=== PATIENT | female | born 1975 | race Caucasian/White ===

== ENCOUNTER → 2018-04-23 12:48 | Outpatient (CLI) | payer OTHER, SELFPAY ==
--- NOTE | 2018-04-23 12:48 | DT_ITS ---
This patient was seen during an EMR downtime April 16, 2018 - April 23, 2018. This patient may have a combination of paper and electronic documentation or all paper documentation. All documentation is viewable within the e-chart portion of [facility] for each patient visit.
[2018-05-01 15:53] LABS: HPV APTIMA, High Risk Negative (Negative)
== END ==
PROVIDERS: Visit Provider Nurse Practitioner Women's Health
DX: Z12.4 Encounter for screening for malignant neoplasm of cervix (principal)
CPT/HCPCS: 88175; G0145

== ENCOUNTER → 2019-06-13 | Outpatient (CLI) | payer OTHER, SELFPAY ==
[2019-04-24 08:46] VITALS: BMI 24.7
--- NOTE | 2019-06-13 08:03 | BI_ITS ---
MAMMOGRAPHY - BILATERAL SCREENING REASON FOR EXAM: Female, 43 years old. Routine annual screening examination. PERTINENT HISTORY: Non-contributory. TECHNIQUE: Digital bilateral breast claudine (3D mammographic acquisition) in the CC and MLO projections. 2-D mediolateral oblique (MLO) and craniocaudad (CC) views of both breasts were obtained. CAD: Full Field Digital Mammography with Computer Added Detection was performed. COMPARISON: Comparison is made with prior outside examination dated May 01, 2017. FINDINGS: Breast Composition: The breasts are heterogeneously dense, which may obscure small masses. There are no dominant masses or suspicious calcifications. No other significant abnormalities are identified. There has been no significant change since the prior study. BI/SCREEN MAMM (CAD) W/CLAUDINE BILAT IMPRESSION: Stable bilateral screening mammogram. Yearly follow-up mammogram recommended. (A) ASSESSMENT CATEGORY: BIRADS Category 1: Negative. A letter regarding these results will be sent to the patient by the facility within 30 days. Approximately 10% of breast cancers are not detected by mammography. A normal mammogram should not delay biopsy of a clinically suspicious abnormality. [id number] Electronically Signed: Gilbert Rosas, at 9:46 EDT , Service support ,
== END | disposition home or self-care (01) ==
LOC: OPBI 08:01
PROVIDERS: Referring Provider Nurse Practitioner Women's Health; Visit Provider Nurse Practitioner Women's Health
DX: Z12.31 Encounter for screening mammogram for malignant neoplasm of breast (principal)
CPT/HCPCS: 77063; 77067

== ENCOUNTER → 2020-08-11 | Outpatient (CLI) | payer OTHER, SELFPAY ==
[2020-08-11 13:26] VITALS: BMI 24.7
[2020-08-11 16:52] LABS: T4 Free Direct 1.19 ng/dL (0.76-1.46); Thyroid Stim Hormone (TSH) 1.54 uIU/mL (0.358-3.74)
== END | disposition home or self-care (01) ==
LOC: LAB 13:50
PROVIDERS: PCP Family Medicine; Referring Provider Nurse Practitioner Women's Health; Visit Provider Nurse Practitioner Women's Health
DX: E04.9 Nontoxic goiter, unspecified (principal); Z13.29 Encounter for screening for other suspected endocrine disorder
CPT/HCPCS: 36415; 84439; 84443

== ENCOUNTER → 2020-08-14 | Outpatient (CLI) | payer OTHER, SELFPAY ==
[2020-08-11 13:26] VITALS: BMI 24.7
--- NOTE | 2020-08-14 14:51 | US_ITS ---
STUDY: THYROID ULTRASOUND REASON FOR EXAM: Female, 44 years old. [facility] TECHNIQUE: Ultrasound evaluation of the thyroid was performed with real-time and static olivera-scale imaging. COMPARISON: None. FINDINGS: RIGHT LOBE: The right lobe of the thyroid gland measures 4.2 x 1.3 x 1.1 cm. There is a homogeneous echotexture. There are no demonstrated solid, cystic or complex lesions. LEFT LOBE: The left lobe of the thyroid gland measures 4.4 x 1.3 x 1.1 cm. There is a homogeneous echotexture. There are no demonstrated solid, cystic or complex lesions. ISTHMUS: The isthmus measures 1.2 mm. The regional lymph nodes are normal. US/Thyroid IMPRESSION: Normal ultrasound examination of the thyroid. Electronically Signed: Kayode Michaels MD ([facility]) at 12:19 EDT , Service support ,
--- NOTE | 2020-08-14 15:04 | BI_ITS ---
MAMMOGRAPHY - BILATERAL SCREENING REASON FOR EXAM: Female, 44 years old. Routine annual screening examination. PERTINENT HISTORY: Non-contributory. TECHNIQUE: Digital bilateral breast claudine (3D mammographic acquisition) in the CC and MLO projections. 2-D mediolateral oblique (MLO) and craniocaudad (CC) views of both breasts were obtained. CAD: Full Field Digital Mammography with Computer Added Detection was performed. COMPARISON: Comparison is made with prior study 06/13/2019. FINDINGS: Breast Composition: The breasts are heterogeneously dense, which may obscure small masses. There are no dominant masses or suspicious calcifications. No other significant abnormalities are identified. There has been no significant change since the prior study. BI/SCREEN MAMM (CAD) W/CLAUDINE BILAT IMPRESSION: Stable bilateral screening mammogram. Yearly follow-up mammogram recommended. (A) ASSESSMENT CATEGORY: BIRADS Category 1: Negative. A letter regarding these results will be sent to the patient by the facility within 30 days. Approximately 10% of breast cancers are not detected by mammography. A normal mammogram should not delay biopsy of a clinically suspicious abnormality. [id number] Electronically Signed: Gilbert Rosas, at 15:49 EDT , Service support ,
== END | disposition home or self-care (01) ==
PROVIDERS: PCP Family Medicine; Referring Provider Nurse Practitioner Women's Health; Visit Provider Nurse Practitioner Women's Health
DX: E04.9 Nontoxic goiter, unspecified (principal); Z12.31 Encounter for screening mammogram for malignant neoplasm of breast
CPT/HCPCS: 76536; 77063; 77067

== ENCOUNTER → 2021-09-13 15:54 | Outpatient (CLI) | payer OTHER, SELFPAY ==
--- NOTE | 2021-09-13 15:58 | BI_ITS ---
MAMMOGRAPHY - BILATERAL SCREENING REASON FOR EXAM: Female, 45 years old. Routine annual screening examination. PERTINENT HISTORY: Non-contributory. TECHNIQUE: Digital bilateral breast claudine (3D mammographic acquisition) in the CC and MLO projections. 2-D mediolateral oblique (MLO) and craniocaudad (CC) views of both breasts were obtained. CAD: Full Field Digital Mammography with Computer Added Detection was performed. COMPARISON: Comparison is made with prior examination 08/14/2020 and 06/13/2019. FINDINGS: Breast Composition: The breasts are heterogeneously dense, which may obscure small masses. There are no dominant masses or suspicious calcifications. No other significant abnormalities are identified. There has been no significant change since the prior study. BI/SCRN MAMM (CAD)W/CLAUDINE BILAT IMPRESSION: Stable bilateral screening mammogram. Yearly follow-up mammogram recommended. (A) ASSESSMENT CATEGORY: BIRADS Category 1: Negative. A letter regarding these results will be sent to the patient by the facility within 30 days. Approximately 10% of breast cancers are not detected by mammography. A normal mammogram should not delay biopsy of a clinically suspicious abnormality. [id number] Electronically Signed: Gilbert Rosas MD at 8:26 EDT , Service support ,
== END ==
PROVIDERS: PCP Family Medicine; Visit Provider Obstetrics & Gynecology
DX: Z12.31 Encounter for screening mammogram for malignant neoplasm of breast (principal)
CPT/HCPCS: 77063; 77067

== ENCOUNTER → 2022-09-15 | Outpatient (CLI) | payer OTHER, SELFPAY ==
--- NOTE | 2022-09-15 16:38 | BI_ITS ---
MAMMOGRAPHY - BILATERAL SCREENING REASON FOR EXAM: Female, 46 years old. Routine annual screening examination. PERTINENT HISTORY: Non-contributory. TECHNIQUE: Digital bilateral breast claudine (3D mammographic acquisition) in the CC and MLO projections. 2-D mediolateral oblique (MLO) and craniocaudad (CC) views of both breasts were obtained. CAD: Full Field Digital Mammography with Computer Added Detection was performed. COMPARISON: Comparison is made with prior study dated 09/13/2021 and 08/14/2020. FINDINGS: Breast Composition: The breasts are heterogeneously dense, which may obscure small masses. There are no dominant masses or suspicious calcifications. No other significant abnormalities are identified. There has been no significant change since the prior study. BI/SCRN MAMM (CAD)W/CLAUDINE BILAT IMPRESSION: Stable bilateral screening mammogram. Yearly follow-up mammogram recommended. (A) ASSESSMENT CATEGORY: BIRADS Category 1: Negative. A letter regarding these results will be sent to the patient by the facility within 30 days. Approximately 10% of breast cancers are not detected by mammography. A normal mammogram should not delay biopsy of a clinically suspicious abnormality. [id number] Electronically Signed: Gilbert Rosas MD at 8:54 EDT ,
== END | disposition home or self-care (01) ==
LOC: OPBI 09-16 07:09
PROVIDERS: PCP Family Medicine; Referring Provider Nurse Practitioner Women's Health; Visit Provider Nurse Practitioner Women's Health
DX: Z12.31 Encounter for screening mammogram for malignant neoplasm of breast (principal)
CPT/HCPCS: 77063; 77067

== ENCOUNTER → 2023-03-06 | Outpatient (CLI) | payer BC, SELFPAY ==
[2023-03-12 11:07] LABS: HPV APTIMA, High Risk Negative (Negative)
== END | disposition home or self-care (01) ==
LOC: LABSPEC 12:45
PROVIDERS: PCP Family Medicine; Referring Provider Nurse Practitioner Women's Health; Visit Provider Nurse Practitioner Women's Health
DX: Z12.4 Encounter for screening for malignant neoplasm of cervix (principal)
CPT/HCPCS: 87624; 88175; G0145

== ENCOUNTER → 2023-10-06 | Outpatient (CLI) | payer BC, SELFPAY ==
--- NOTE | 2023-10-06 10:25 | BI_ITS ---
MAMMOGRAPHY - BILATERAL SCREENING REASON FOR EXAM: Female, 47 years old. Routine annual screening examination. PERTINENT HISTORY: Non-contributory. TECHNIQUE: Digital bilateral breast claudine (3D mammographic acquisition) in the CC and MLO projections. 2-D mediolateral oblique (MLO) and craniocaudad (CC) views of both breasts were obtained. CAD: Full Field Digital Mammography with Computer Added Detection was performed. COMPARISON: Comparison is made with prior study dated September 15, 2022 and September 13, 2021. FINDINGS: Breast Composition: The breasts are heterogeneously dense, which may obscure small masses. There are no dominant masses or suspicious calcifications. No other significant abnormalities are identified. There has been no significant change since the prior study. BI/SCRN MAMM (CAD)W/CLAUDINE BILAT IMPRESSION: Stable bilateral screening mammogram. Yearly follow-up mammogram recommended. (A) ASSESSMENT CATEGORY: BIRADS Category 1: Negative. A letter regarding these results will be sent to the patient by the facility within 30 days. Approximately 10% of breast cancers are not detected by mammography. A normal mammogram should not delay biopsy of a clinically suspicious abnormality. [id number] Electronically Signed: Gilbert Rosas MD at 9:39 EST ,
== END | disposition home or self-care (01) ==
LOC: OPBI 10:23
PROVIDERS: PCP Family Medicine; Referring Provider Nurse Practitioner Women's Health; Visit Provider Nurse Practitioner Women's Health
DX: Z12.31 Encounter for screening mammogram for malignant neoplasm of breast (principal)
CPT/HCPCS: 77063; 77067

== ENCOUNTER → 2024-06-03 | Outpatient (CLI) | payer BC, SELFPAY ==
[2024-06-03 13:09] LABS: Estradiol < 11.0 pg/mL; Follicle Stimulating Hormone 21.6 mIU/mL
== END | disposition home or self-care (01) ==
LOC: LAB 12:28
PROVIDERS: PCP Family Medicine; Referring Provider Nurse Practitioner Women's Health; Visit Provider Nurse Practitioner Women's Health
DX: N95.1 Menopausal and female climacteric states (principal)
CPT/HCPCS: 36415; 82670; 83001

== ENCOUNTER → 2024-10-09 | Outpatient (CLI) | payer BC, SELFPAY ==
--- NOTE | 2024-10-09 12:25 | BI_ITS ---
MAMMOGRAPHY - BILATERAL SCREENING 3-D TOMOSYNTHESIS REASON FOR EXAM: Female, 48 years old. Screening for breast cancer PERTINENT HISTORY: No significant family history. TECHNIQUE: 2-D mammograms and 3-D Tomosynthesis of the breast (s) were performed. CAD was performed. COMPARISON: 09/13/2021 FINDINGS: The breast composition is composed of scattered fibroglandular density. Scattered benign calcifications are seen. No dense spiculated masses or suspicious microcalcifications are identified. No architectural distortion is identified. There is no skin thickening or retraction. There has been no significant change since the prior study. BI/SCRN MAMM (CAD)W/CLAUDINE BILAT IMPRESSION: No mammographic signs of malignancy. Routine yearly mammograms recommended. ASSESSMENT CATEGORY: BIRADS Category 1: Negative. A letter regarding these results will be sent to the patient by the facility within 30 days. FOLLOW UP RECOMMENDATION: Yearly follow up mammogram recommended. (A) Approximately 10% of breast cancers are not detected by mammography. A normal mammogram should not delay biopsy of a clinically suspicious abnormality. Electronically Signed: Frantz Reyes MD at 13:15 EST ,
== END | disposition home or self-care (01) ==
LOC: OPBI 12:25
PROVIDERS: PCP Family Medicine; Referring Provider Nurse Practitioner Women's Health; Visit Provider Nurse Practitioner Women's Health
DX: Z12.31 Encounter for screening mammogram for malignant neoplasm of breast (principal)
CPT/HCPCS: 77063; 77067

== ENCOUNTER → 2025-03-05 | Outpatient (CLI) | payer BC, SELFPAY ==
--- NOTE | 2025-03-05 13:16 | US_ITS ---
PROCEDURE: PELVIC W/ TRANSVAGINAL REASON FOR EXAM: PELVIC PAIN TECHNIQUE: Transabdominal and transvaginal pelvic ultrasound COMPARISON: None available. FINDINGS: Measurements: Uterus: 8.5 cm x 3.9 cm x 2.6 cm with a volume of 37.04 mL Endometrial Thickness: 3.5 mm. Hyperechoic. Right Ovary: 2.5 cm x 1.7 cm x 1.3 cm with a volume of 2.96 mL. Left Ovary: Not visualized. TRANSABDOMINAL: Uterus: Unremarkable. Nabothian cyst. Endometrium: 3.5 mm Right ovary: Normal size and echotexture. Left ovary: Not visualized. Other: No large pelvic mass identified. Transvaginal sonography was performed to better visualize the endometrium. TRANSVAGINAL: Uterus: Nabothian cyst. Endometrium: Normal echotexture. Right ovary: Normal size and echotexture. Left ovary: Not visualized. Other adnexal findings: None. Cul-de-sac: No free intraperitoneal fluid identified. Tenderness: No tenderness US/Pelvic w/ Transvaginal IMPRESSION: NORMAL TRANSABDOMINAL AND TRANSVAGINAL PELVIC ULTRASOUND. Reading Location: [place] [id number]
== END | disposition home or self-care (01) ==
LOC: OPUS 13:13 → US 13:15
PROVIDERS: PCP Family Medicine; Referring Provider Nurse Practitioner Women's Health; Visit Provider Nurse Practitioner Women's Health
DX: R10.2 Pelvic and perineal pain (principal)
CPT/HCPCS: 76830; 76856

== ENCOUNTER → 2025-11-04 | Outpatient (CLI) | payer BC, SELFPAY ==
--- NOTE | 2025-11-04 12:30 | BI_ITS ---
EXAM: SCRN MAMM (CAD)W/CLAUDINE BILAT DATE: 11/04/2025 CLINICAL HISTORY: F, Age 49 y/o , SCREENING FOR BREAST CANCER TECHNIQUE: Procedure Code: [id number] Modality: MG Procedure: SCRN MAMM (CAD)W/CLAUDINE BILAT COMPARISON: Prior exam(s) were compared FINDINGS: TISSUE DENSITY: The breasts are heterogeneously dense, which may obscure small masses. Bilateral Breast Mammographic Findings: No significant masses, calcifications or other abnormalities are identified. BI/SCRN MAMM (CAD)W/CLAUDINE BILAT IMPRESSION: No mammographic evidence of malignancy. OVERALL FINAL ASSESSMENT BI-RADS 1: NEGATIVE. RECOMMENDATION: Routine annual follow-up in 1 Year Additional Recommendation none A letter with findings and recommendations will be mailed to the patient. Reading Location: [id number]
--- OUTSIDE RECORDS SUMMARY | 2025-11-04 12:40 | XMS RPT_ITS | CCD ---
Author Organization [facility] Care Team Providers Care Forming Press Operator Name Role Phone Tali PHOTOGRAPHER APPRENTICE, Armida S Unavailable Sina Vanegas MD Primary Care Provider Dr. Sina Vanegas Primary Care Provider Dr. Sina Vanegas Referring Provider Tali PHOTOGRAPHER APPRENTICE, PHOTOGRAPHER APPRENTICE-C Armida Attending Provider Dr. Conchis Gallardo Attending Provider Sina Vanegas MD Primary Care Provider Sina Vanegas MD Primary Care Provider Sina Vanegas MD Primary Care Provider Haagen INSTRUMENT STERILIZER.Sudha ZHENG Unavailable Suppan INSTRUMENT STERILIZER.LINE MANAGER, Araceli A Unavailable SINA VANEGAS Primary Care Unavailable UNGPRASERT, PATOMPONG Attending Unavailabl SINA Rey Primary Care Unavailable UNGPRASERT, PATOMPONG Attending Unavailabl SINA Rey Primary Care Unavailable SINA VANEGAS Attending Unavailable SINA VANEGAS Primary Care Unavailable UNGPRASERT, PATOMPONG Referring Unavailabl SINA Rey Primary Care Unavailable SINA VANEGAS Referring Unavailable SINA VANEGAS Primary Care Unavailable UNGPRASERT, PATOMPONG Referring Unavailabl e Suppan INSTRUMENT STERILIZER.MARCE, Araceli A Unavailable Dr. Sina Vanegas MD Primary Care Provider Tali PHOTOGRAPHER APPRENTICE-CArmida Attending Provider Tali PHOTOGRAPHER APPRENTICE-CArmida Referring Provider Dr. Sina Vanegas MD Referring Provider Tali PHOTOGRAPHER APPRENTICE, Armida Attending Unavailable Sina Vanegas Referring Unavailable Sina Vanegas Primary Care Unavailable Tali PHOTOGRAPHER APPRENTICE, Armida Attending Unavailable Sina Vanegas Primary Care Unavailable Tali PHOTOGRAPHER APPRENTICE, Armida Referring Unavailable Tali PHOTOGRAPHER APPRENTICE, Armida Referring Unavailable Tali PHOTOGRAPHER APPRENTICE, Armida Attending Unavailable Sina Vanegas Primary Care Unavailable Medications Current Medications Medication Drug Class(es) Dates Sig (Normalized) Sig (Original) apremilast 20 mg oral tablet (1 source) Start: 07-02-2025 Apremilast (Otezla) 20 mg tablet Active mg PO July 02, 2025 12:00am 21 day ethinyl estradiol 0.591724 mg/hr / etonogestrel 0.005 mg/hr vaginal system (20 sources) Progestin, Estrogen Start: 12-09-2021 End: 05-08-2024 Etonogestrel-Ethin yl Estradiol (Nuvaring) 0.12-0.015 mg/24 hr ring Active 1 NMA VAGINAL every 4 weeks 3 4 May 08, 2024 1:34pm Continuous cycling Start: 03-21-2018 End: 11-24-2021 Etonogestrel-Ethinyl Estradi ol (Nuvaring) 0.12-0.015 mg/24 hr ring Discontinued 1 NMA VAGINAL .COMPLEX 3 4 November 24, 2021 12:44pm November 24, 2021 12:53pm 1 vag ring VAGINAL continuous cycling; leave in place for 4 weeks then replace Start: 02-12-2018 End: 03-07-2018 Etonogestrel-Ethinyl Estradi ol (Nuvaring) 0.12-0.015 mg/24 hr ring Discontinued 1 NMA VAGINAL ONCE 3 February 14, 2018 12:46pm March 06, 2018 12:00am March 07, 2018 12:06am Start: 09-27-2017 NUVARING 0.12- 0.015 MG/24HR RING 1 ring per vagina as directed ETONOGESTREL-ETHINYL ESTRADIOL [id number] Armida Cesar NP Start: 04-19-2017 End: 03-06-2023 Etonogestrel-Ethinyl Estradi ol (NUVARING) 0.12-0.015 mg/24 hr vaginal ring Insert vaginally for 3 weeks then replace 2 Each 9 04/19/2017 Active Comment on above: Insert vaginally for 3 weeks then replace omeprazole 20 mg delayed release oral capsule (20 sources) Proton Pump Inhibitor Start: 11-24-2021 End: 04-10-2025 take 1 capsule by mouth once daily omeprazole (PRILOSEC) 20 mg capsule Take 1 capsule by mouth once daily. 90 capsule 3 04/11/2025 Active Comment on above: Take 1 capsule by [facility] once daily. TAKE 1 CAPSULE ONCE DAILY sertraline 100 mg oral tablet (20 sources) Serotonin Reuptake Inhibitor Start: 02-12-2024 End: 04-10-2025 take 1 tablet by mouth once daily sertraline (ZOLOFT) 100 mg tablet Indications: ERICKSON (generalized anxiety disorder) Take 1 tablet by mouth once daily. 90 tablet 3 04/11/2025 Active Start: 03-06-2023 take 2 tablets by [facility] once daily Sertraline (Zoloft) 50 mg tablet Active 100 mg PO DAILY March 06, 2023 9:41am Start: 04-19-2022 End: 02-10-2024 take 1 tablet by mouth once daily sertraline (ZOLOFT) 100 mg tablet Indications: ERICKSON (generalized anxiety disorder) Take 1 tablet by mouth once daily. 90 tablet 1 02/05/2024 02/10/2024 Discontinued Start: 11-24-2021 End: 03-14-2023 take 1 tablet by mouth once daily Sertraline (Zoloft) 50 mg tablet Discontinued 50 mg PO DAILY November 24, 2021 1:00am March 06, 2023 9:41am Start: 03-09-2018 End: 04-24-2019 Sertraline 20 mg/mL concentr ate Discontinued PO 180 72 0 March 09, 2018 12:00am April 24, 2019 8:47am Start: 03-09-2018 End: 04-24-2019 sertraline 20 mg/mL oral con centrate Discontinued PO 180 72 March 08, 2018 11:00pm April 24, 2019 7:47am Comment on above: Take 1 tablet by [facility] once daily. Completed/Discontinued Medications Medication Drug Class(es) Dates Sig (Normalized) Sig (Original) amoxicillin 500 mg oral capsule (1 source) Penicillin-class Antibacterial Start: 12-28-2023 End: 01-07-2024 take 1 capsule by mouth twice daily Amoxicillin 500 mg capsule Discontinued 500 mg PO TWICE A DAY 20 10 0 December 28, 2023 1:00am January 06, 2024 1:00am January 07, 2024 1:04am amoxicillin 875 mg / clavulanate 125 mg oral tablet (5 sources) Penicillin-class Antibacterial Start: 03-09-2018 End: 03-19-2018 Amoxicillin-Pot Clavulanate (Augmentin) 875-125 mg tablet Discontinued 1 {tbl} PO Q12H 20 10 0 March 09, 2018 12:00am March 18, 2018 12:00am March 19, 2018 12:07am Acute sinusitis, unspecified azithromycin 250 mg oral tablet (5 sources) Macrolide Antimicrobial Start: 09-28-2019 End: 08-11-2020 take 2-5 tablets by mouth once daily Azithromycin (Zithromax Z-Arnold) 250 mg tablet Discontinued 0 PO .COMPLEX 6 0 September 28, 2019 1:00am August 11, 2020 1:18pm take 500 mg today (day 1), then 250 mg for 4 days (days 2-5) PO 24 hr buPROPion hydrochloride 150 mg extended release oral tablet (2 sources) Aminoketone Start: 01-31-2022 End: 03-14-2022 take 1 tablet by mouth once daily buPROPion XL (WELLBUTRIN XL) 150 mg 24 hr tablet Indications: Anxiety with depression Take 1 tablet by mouth once daily. 30 tablet 5 01/31/2022 03/14/2022 Discontinued Comment on above: Take 1 tablet by [facility] once daily. Etonogestrel-Ethiny l Estradiol (Nuvaring) 0.12-0.015 mg/24 hr ring (2 sources) Start: 01-11-2023 End: 01-11-2023 Etonogestrel-Ethin yl Estradiol (Nuvaring) 0.12-0.015 mg/24 hr ring Discontinued 1 NMA VAGINAL every 4 weeks 3 1 January 11, 2023 2:04pm January 11, 2023 2:05pm Start: 01-11-2023 End: 01-11-2023 Etonogestrel-Ethinyl Estradi ol (Nuvaring) 0.12-0.015 mg/24 hr ring Discontinued 1 VAG RING VAGINAL every 4 weeks 3 January 11, 2023 1:04pm January 11, 2023 1:05pm Hydroxychloroquine (18 sources) Antimalarial, Antirheumatic Agent Start: 05-08-2024 End: 07-02-2025 take 1 tablet by mouth twice daily Hydroxychloroquine 100 mg tablet Discontinued 100 mg PO TWICE A DAY May 08, 2024 12:00am July 02, 2025 2:41pm Start: 06-05-2023 End: 09-11-2025 take 1 tablet by mouth once daily hydrOXYchloroQUINE (PLAQUENIL) 200 mg tablet Indications: Seronegative rheumatoid arthritis (HCC) Take 1 tablet by mouth once daily. 90 tablet 3 09/11/2024 09/11/2025 Active Comment on above: Take 1 tablet by dwayne th once daily. hydrOXYzine pamoate 25 mg oral capsule (2 sources) Antihistamine Start: 11-01-20 End: 03-14-20 take 1 capsule by mouth every twelve hours as needed hydrOXYzine pamoate (VISTARIL) 25 mg capsule Take 1 capsule by mouth twice daily as needed for anxiety. 30 capsule 0 11/01/2021 03/14/2022 Discontinued Comment on above: Take 1 capsule by mo [facility] twice daily as needed for anxiety. meloxicam 15 mg oral tablet (6 sources) Nonsteroidal Anti-inflammatory Drug Start: 05-23-20 End: 09-06-20 take 1 tablet by mouth once daily at mealtime meloxicam (MOBIC) 15 mg tablet Indications: Arthralgia, unspecified joint Take 1 tablet by mouth once daily. With food. 30 tablet 2 05/23/2023 09/06/2023 Discontinued Comment on above: Take 1 tablet by dwayne th once daily. With food. predniSONE 10 mg oral tablet (5 sources) Start: 09-28-20 End: 08-11-20 Prednisone 10 mg tablet Discontinued 10 mg PO .COMPLEX 30 0 September 28, 2019 1:00am August 11, 2020 1:19pm take 4 pills for 3 days, take 3 pills for 3 days, take 2 pills for 3 days, take 1 pill for 3 days; Problems Active Problems Problem Classification Problem Date Documented Date Episodic/Chronic Abdominal pain (3 sources) Pain in pelvis; Translations: [Pelvic and perineal pain] Onset: 07-02-2025 07-02-2025 Episodic Comment on above: [facility] 02/2025 Anxiety disorders (20 sources) Panic disorder; Translations: [Panic disorder [episodic paroxysmal anxiety]] Onset: 11-22-2017 Chronic Disorders of lipid metabolism (2 sources) Mixed hyperlipidemia; Translations: [Mixed hyperlipidemia] Onset: 04-29-2024 04-22-2024 Chronic Esophageal disorders (1 source) Gastroesophageal reflux disease without esophagitis; Translations: [Gastro-esophageal reflux disease without esophagitis] 05-23-2023 Chronic Immunity disorders (1 source) Immunodeficiency, unspecified; Translations: [Immunosuppression (HCC)] Onset: 03-07-2025 Chronic Malaise and fatigue (1 source) Fatigue; Translations: [Other fatigue] Episodic Mood disorders (20 sources) Depressive disorder; Translations: [Other specified depressive episodes] Onset: 02-18-2008 02-18-2008 Chronic Osteoarthritis (1 source) Arthritis; Translations: [Unspecified osteoarthritis, unspecified site] 05-26-2023 Chronic Other aftercare (3 sources) Drug therapy finding; Translations: [Other nursing home (current) drug therapy] 09-06-2023 Episodic Other circulatory disease (2 sources) Elevated blood-pressure reading, without diagnosis of hypertension; Translations: [Elevated blood pressure reading without diagnosis of hypertension] Episodic Other inflammatory condition of skin (1 source) Psoriatic arthritis; Translations: [Other psoriatic arthropathy] 09-11-2024 Chronic Other inflammatory condition of skin (1 source) Psoriasis vulgaris; Translations: [Psoriasis vulgaris] 09-11-2024 Chronic Other inflammatory condition of skin (1 source) Other psoriatic arthropathy; 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)] Onset: 03-07-2025 Chronic Other inflammatory condition of skin (1 source) Psoriasis vulgaris; Translations: [Psoriasis vulgaris] Onset: 03-07-2025 Chronic Other non-traumatic joint disorders (2 sources) Joint pain; Translations: [Pain in unspecified joint] 05-22-2023 Episodic Other non-traumatic joint disorders (2 sources) Multiple joint pain; Translations: [Pain in unspecified joint] 05-26-2023 Episodic Other nutritional; endocrine; and metabolic disorders (1 source) Weight gain; Translations: [Abnormal weight gain] Episodic Other screening for suspected conditions (not mental disorders or infectious disease) (18 sources) Patient encounter status; Translations: [Encounter for screening mammogram for malignant neoplasm of breast] Onset: 01-05-2024 Episodic Otitis media and related conditions (1 source) Finding of fluid behind tympanic membrane; Translations: [Unspecified nonsuppurative otitis media, left ear] Episodic Rheumatoid arthritis and related disease (19 sources) Seronegative rheumatoid arthritis; Translations: [Rheumatoid arthritis without rheumatoid factor, unspecified site] Onset: 11-27-2023 09-06-2023 Chronic Unclassified (1 source) No current problems or disability 09-27-2017 Past or Other Problems Problem Classification Problem Date Documented Da te Episodic/Chronic Acute bronchitis (9 sources) Acute bronchitis; Translations: [Acute bronchitis, unspecified] Onset: 11-27-2023 Resolved: 11-27-2023 11-27-2023 Episodic Mycoses (20 sources) Onychomycosis; Translations: [Tinea unguium] Onset: 03-05-2010 03-05-2010 Episodic Neoplasms of unspecified nature or uncertain behavior (20 sources) Neoplasm of uncertain behavior of skin; Translations: [Neoplasm of uncertain behavior of skin] Onset: 04-28-2011 Resolved: 11-27-2023 04-28-2011 Episodic Nonspecific chest pain (3 sources) Chest wall pain; Translations: [Other chest pain] Onset: 04-22-2024 04-22-2024 Episodic Other circulatory disease (16 sources) Elevated blood-pressure reading without diagnosis of hypertension; Translations: [Elevated blood-pressure reading, without diagnosis of hypertension] Onset: 11-27-2023 11-27-2023 Episodic Other non-traumatic joint disorders (20 sources) Swelling of knee joint; Translations: [Effusion, right knee] Onset: 03-05-2010 03-05-2010 Episodic Unclassified (3 sources) child 06-11-2022 Results Test Name Value Interpretation Reference Range Facility Exchange Specialist Office Visit Reporton 07-02-2025 Exchange Specialist Office Visit Report [facility] [address], [address] [place] [address] OFFICE VISIT Date of Service: 07/02/25 MR#: [id number] Acct: [id number] Name: ALONA RODRIGEZ #: [id number] : 1975 Provider: LARRY bowen Age/Sex: 49/F [place] [facility] [place]: Signed Intake Vital Signs 05/08/24 13:31 07/02/25 14:37 07/02/25 14:41 Height 5 ft 3 in 5 ft 3 in 5 ft 3 in Weight: 174 lb BMI 30.8 BP 114/80 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) Chief Complaint: Annual Ship Boss Required: No Is patient in pain?: No Allergies No Known Allergies Allergy (Verified 07/02/25 14:49) Medications ???Medication ???Instructions ???Recorded ???Confirmed ???Type omeprazole 20 mg capsule,delayed 20 mg PO DAILY 11/24/21 07/02/25 H istory release sertraline 50 mg tablet (Zoloft) 100 mg PO DAILY 03/06/23 07/02/25 History etonogestrel 0.12 mg-ethinyl 1 vag ring vaginal Q4W #3 ea 05/0807/02/25 Rx estradiol 0.015 mg/24 hr vaginal ring (NuvaRing) apremilast 20 mg tablet (Otezla) mg PO 07/02/25 07/02/25 History Is last menstrual period known: No Post menopausal: No Patient : No : No PFSH Medical History child Knee pain Shoulder pain Arthritis Surgical History H/O dilation and curettage Social History Smoking Status: Never smoker alcohol intake: current alcohol intake frequency: a few times a month substance use type: does not use caffeine: Yes what type of physical activity do you participate in: none seatbelt use: always do you feel safe at home: Yes additional social history: -[employer] 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 Date Name GA/Weeks Outcome Route Bth Weight Gen Labor Lgth Anesthesia Del [facility] Provider FOB Unknown Melany-2000 Unknown Mague-2001 HPI Encounter for routine gynecological examination Details: ALONA RODRIGEZ is a 49 year old who presents for annual exam. Had normal US in February due to lower right pelvic pain. Still happening off and on. No menses with nuvaring. Last PAP: 2022 History of abnormal PAP: no Last mammogram: 09/2024 History of abnormal mammogram: no Colon cancer screenin Other preventative health care screenings: Guil[place] Female Reproductive History Questions: metrorrhagia: No, sexually active: Yes, dyspareunia: No and PCB: No ROS Const Constitutional: Denies fatigue, weight gain or weight loss Cardio Card: Denies chest pain Resp Resp: Denies cough or dyspnea on exertion GI GI: Denies abdominal pain, bloating, change in stool character, constipation or vomiting : Reports as per HPI; Denies difficulty voiding, pelvic pain, urinary frequency, urinary incontinence, urinary urgency, vaginal discharge or vaginal pruritus Exam Const General: cooperative, healthy appearing, no acute distress and well developed Orientation: alert, oriented to person and oriented to place HENNJ Head: normal to inspection Neck Neck: normal visual inspection Thyroid: thyroid normal Lymphatic: no lymphadenopathy noted Chest Breast inspection: normal inspection of the breasts and normal inspection of the axillae Breast palpation: normal palpation of the breasts, normal palpation of the axillae and no axillary lymphadenopathy Resp Effort Inspection: normal respiratory effort GI Palpation: soft, no masses and nontender Rectal Exam: deferred External Female Exam: normal external appearance and normal appearance of the urethra Urethra: normal appearance of the urethra and normal palpation Speculum Exam - Vagina: normal appearance of the vagina and normal vaginal discharge Speculum Exam - Cervix: normal appearance of the cervix Bimanual Exam- Vagina Uterus: normal bimanual exam, uterine size normal, uterine shape normal and non-tender Bimanual Exam- Adnexa, other: normal adnexae, no masses, normal and non-tender Pelvic Support: normal Neuro General: patient alert and patient oriented x3 Psych Affect: normal affect Coding Level of Care Code Off vis,est,prev 40-64yrs Diagnoses Encounter for gynecological examination with abnormal finding Z01.411 Gynecological examination findings: abnormal findings PRESENT Pelvic pain R10.2 Assessment and Plan Assessment and Plan (1) Encounter for routine gynecological examination: Qualifiers: Gynecological examinati (more content not included)... [place] Pelvic w/ Transvaginalon Pelvic w/ Transvaginal [facility] Imaging Services [address] [place] [address] Pelvic w/ Transvaginal MR#: [id number] Acct: [id number] Name: ALONA RODRIGEZ Rep #: [id number] : 1975 F 49 From: Gilbert ford MD PCP: Dr. Sina Vanegas MD Status: REG CLI Study: Pelvic w/ Transvaginal Date of Exam: 03/05/25 Exam# [id number] Ordering Dr: Armida Cesar PHOTOGRAPHER APPRENTICE PHOTOGRAPHER APPRENTICE -C PROCEDURE: PELVIC W/ TRANSVAGINAL REASON FOR EXAM: PELVIC PAIN TECHNIQUE: Transabdominal and transvaginal pelvic ultrasound COMPARISON: None available. FINDINGS: Measurements: Uterus: 8.5 cm x 3.9 cm x 2.6 cm with a volume of 37.04 mL Endometrial Thickness: 3.5 mm. Hyperechoic. Right Ovary: 2.5 cm x 1.7 cm x 1.3 cm with a volume of 2.96 mL. Left Ovary: Not visualized. TRANSABDOMINAL: Uterus: Unremarkable. Nabothian cyst. Endometrium: 3.5 mm Right ovary: Normal size and echotexture. Left ovary: Not visualized. Other: No large pelvic mass identified. Transvaginal sonography was performed to better visualize the endometrium. TRANSVAGINAL: Uterus: Nabothian cyst. Endometrium: Normal echotexture. Right ovary: Normal size and echotexture. Left ovary: Not visualized. Other adnexal findings: None. Cul-de-sac: No free intraperitoneal fluid identified. Tenderness: No tenderness US/Pelvic w/ Transvaginal IMPRESSION: NORMAL TRANSABDOMINAL AND TRANSVAGINAL PELVIC ULTRASOUND. Reading Location: [place] [address] CC: PHOTOGRAPHER APPRENTICE-C Armida Cesar; Dr. Sina Vanegas MD Eligibility Technician: Signed [place] SCRN MAMM (CAD)W/CLAUDINE BILATo n 10-09-2024 SCRN MAMM (CAD)W/CLAUDINE BILAT [facility] Imaging Services [address] [place], [place] [address] SCRN MAMM (CAD)W/CLAUDINE BILAT MR#: [id number] Acct: [id number] Name: ALONA RODRIGEZ Rep #: [id number] : 1975 F 48 From: Reddy Reyes MD PCP: Dr. Sina Vanegas MD Status: REG [facility] Study: SCRN MAMM (CAD)W/CLAUDINE BILAT Date of Exam: 09/14 06/05 Exam# [id number] Ordering Dr: Armida Cesar NP PHOTOGRAPHER APPRENTICE -C [id number] MAMMOGRAPHY - BILATERAL SCREENING 3-D TOMOSYNTHESIS REASON FOR EXAM: Female, 48 years old. Screening for breast cancer PERTINENT HISTORY: No significant family history. TECHNIQUE: 2-D mammograms and 3-D Tomosynthesis of the breast (s) were performed. CAD was performed. COMPARISON: 09/13/2021 FINDINGS: The breast composition is composed of scattered fibroglandular density. Scattered benign calcifications are seen. No dense spiculated masses or suspicious microcalcifications are identified. No architectural distortion is identified. There is no skin thickening or retraction. There has been no significant change since the prior study. BI/SCRN MAMM (CAD)W/CLAUDINE BILAT IMPRESSION: No mammographic signs of malignancy. Routine yearly mammograms recommended. ASSESSMENT CATEGORY: BIRADS Category 1: Negative. A letter regarding these results will be sent to the patient by the facility within 30 days. FOLLOW UP RECOMMENDATION: Yearly follow up mammogram recommended. (A) Approximately 10% of breast cancers are not detected by mammography. A normal mammogram should not delay biopsy of a clinically suspicious abnormality. Electronically Signed: Frantz Reyes MD at 13:15 EST Reading Location ID and State: [facility] / [place] , Service support , CC: LARRY Cesar; Dr. Sina Vanegas MD Eligibility Technician: Signed [place] CNOVon 09-11-2024 CNOV Office Visit (RHEUMN ) -------- ALONA RODRIGEZ ([id number]) 1975 F Date Time Provider Department 09/11/24 2:00 PM MARIAJOSE REYNOSO RHEUMN During your visit today, we recorded the following information about you: Temperature Pulse Blood pressure Weight 97.4 degrees 85/minute 129/81 77.9 kg Height 1.6 m Mariajose Reynoso MD 09/11/2024 1:45 PM Signed Follow up zoom call March 07 at 4 PM Continue Plaquenil for now Send me an update after you see dermatology Mariajose Reynoso MD 09/11/2024 1:55 PM Signed MD Alona Cortes September 10, 2024 Referring Provider: PCP: Sina Vanegas MD Chief Complaint: Patient presents with: Joint Pain Background Rheumatologic History: Ms. Rodrigez reports that about 10 years ago she was diagnosed with inflammatory arthritis. She reported at the time, experiencing significant bilateral knee pain and swelling, as well as intermittent hip tightness. Labs were checked and at that time, CRP/ESR were elevated, but KISHAN and RF were negative. She was told that if her symptoms worsened, she could be seen by a dermatology physician, however her symptoms were generally manageable so she did not present. About two years ago, she developed progressively worsening joint disease. She endorses joint pain, swelling, tightness of her shoulders, elbows, wrists, fingers, knees, and toes. The worst joints are her toes and fingers. She states that her joint pain/stiffness migrates from one joint to another but her toes are basically always stiff. She endorses morning stiffness that lasts at least 30-60 minutes, improves with activity. She denies any redness or erythema to her joints. Sometimes the pain is so severe that is limits her ability to walk/complete ADLs. This was the case about two weeks ago, when she had severe joint stiffness and pain and could not walk. Her PCP prescribed a course of Meloxicam (that she began 4 days ago) and checked bloodwork. KISHAN positive, RF negative, ESR/CRP elevated. She reports that she has never taken prednisone for joint issues, has never tried plaquenil. Usually, her joint symptoms are managed with heat/ice or the occasional ibuprofen. She otherwise denies any rashes, photosensitivity, eye pain, eye redness, changes to vision, mouth ulcers, dysphagia, odoynphoagia, shortness of breath, pleuritic pain, chest pain, blood in stool, melena, weakness, hair loss, nail changes, Raynaud's phenomenon, hypermobility. She describes her energy levels as alright. Family hx: - cousin w/ lupus - otherwise none I first saw her 05/26/23 47 yo female present with polyarthralgia. Characteristics of her joint pain sounds inflammatory to me. Exam show swelling and tenderness in several joints especially in her hands. High suspicion for rheumatoid. We will obtain a comprehensive set of serologies and x-rays. F/U 06/05/23 CCP neg ABBY neg Responding quite well to meloxicam. Her pain and stiffness are minimal now. I think that seronegative rheumatoid arthritis is the most likely explanation for her arthritis based on the pattern of her arthritis. Elevated inflammatory markers and responsiveness to meloxicam are very suggestive of inflammatory arthritis. We will start her on hydroxychloroquine given its favorable safety profile. Side effects of HCQ, especially HCQ maculopathy, were discussed. The patient will need regular eye exam. I will recommend her to keep taking meloxicam every day for 1 month and then downgrade it to as needed. F/U 09/06/23 Doing better on Plaquenil. She is able to stop meloxicam July 14. Since then, she describes 2 minor flare in her knees. No pain or swelling today. Continue hydroxychloroquine monotherapy. F/U 03/08/24 I think she is in remission. Hydroxychloroquine monotherapy is working well. I will continue it. She will do eye exam soon. Interim History: Patient returns for follow up, last visit 09/06/2023. Few minor flare that resolved by itself since she last saw me. 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 They are treating her with topical medication. She is due to see them again in 2 months. They mentioned that they may want to start her on Otezla. Labs ok PAST MEDICAL HISTORY Diagnosis Date Abnormal Pap smear and cervical HPV (human papillomavirus) colp 05/2010 BRANDI 1 Arthritis Depression Hx of colonoscopy 01/05/[address] Givens PAST SURGICAL HISTORY Procedure Laterality Date DILATION AND CURETTAGE DXAND/THER NONOBSTETRIC EGD 02/01/2021 SKIN BIOPSY HX Social History Tobacco Use Smoking status: Never Smokeless tobacco: Never Substance Use Topics Alcohol use: Yes Comment: Occasionally Drug use: No Health Maintenance Covid-19 Vaccine( season) due on 07/14/2024 Mammogram Screening due on (more content not included)... Normal [facility] ALT SerPl-cCncon 09-04-2024 ALT [Catalytic activity/Vol] 10 U/L Normal 7-38 [facility] Comment on above: Order Comment: Speci men Type: BLOOD SPECIMEN Ordering Facility: [facility] Address: [address] [place] [address] Performed By: #### 1 920-8, 1742-6, CRET1, 3094-0 #### [facility] CLIA [id number] [address] [place] [address] [place] AST SerPl-cCncon 09-04-2024 AST [Catalytic activity/Vol] 12 U/L Low 13-35 [facility] Comment on above: Order Comment: Speci men Type: BLOOD SPECIMEN Ordering Facility: [facility] Address: [address] [place] [address] Performed By: #### 1 920-8, 1742-6, CRET1, 3094-0 #### [facility] CLIA [id number] [address] [place] [address] [place] BUN SerPl-mCncon 09-04-2024 Urea nitrogen [Mass/Vol] 12 mg/dL Normal 7-21 [facility] Comment on above: Order Comment: Speci men Type: BLOOD SPECIMEN Ordering Facility: [facility] Address: [address] [place] [address] Performed By: #### 1 920-8, 1742-6, CRET1, 3094-0 #### [facility] CLIA [id number] [address] [place] [address] [place] CBC W Auto Differential pane l (Bld)on 09-04-2024 Basophils (Bld) [#/Vol] 10*3/uL Normal <0.11 [facility] Comment on above: Order Comment: Speci men Type: BLOOD SPECIMEN Ordering Facility: [facility] Address: [address] [place] [address] Performed By: #### 5 7021-8 #### [facility] CLIA [id number] [address] [place] [address] [place] Basophils/100 WBC (Bld) 0.3 % Normal [facility] Comment on above: Order Comment: Speci men Type: BLOOD SPECIMEN Ordering Facility: [facility] Address: [address] [place] [address] Performed By: #### 5 7021-8 #### [facility] CLIA [id number] [address] [place] [address] [place] Differential cell count method Nom (Bld) Auto Normal [facility] Comment on above: Order Comment: Speci men Type: BLOOD SPECIMEN Ordering Facility: [facility] Address: [address] [place] [address] Performed By: #### 5 7021-8 #### [facility] CLIA [id number] [address] [place] [address] [place] Eosinophils (Bld) [#/Vol] 0.13 10*3/uL Normal <0.46 [facility] Comment on above: Order Comment: Speci men Type: BLOOD SPECIMEN Ordering Facility: [facility] Address: [address] [place], [place] [address] Performed By: #### 5 7021-8 #### [facility] CLIA [id number] [address] [place] [address] [place] Eosinophils/100 WBC (Bld) 2.1 % Normal [facility] Comment on above: Order Comment: Speci men Type: BLOOD SPECIMEN Ordering Facility: [facility] Address: [address] [place] [address] Performed By: #### 5 7021-8 #### [facility] CLIA [id number] [address] [place] [address] [place] Erythrocyte distribution width (RBC) [Ratio] 11.9 % Normal 11.5-15.0 [facility] Comment on above: Order Comment: Speci men Type: BLOOD SPECIMEN Ordering Facility: [facility] Address: [address] [place] [address] Performed By: #### 5 7021-8 #### [facility] CLIA [id number] [address] [place] [address] [place] Hematocrit (Bld) [Volume fraction] 38.0 % Normal 36.0-46.0 [facility] Comment on above: Order Comment: Speci men Type: BLOOD SPECIMEN Ordering Facility: [facility] Address: [address] [place] [address] Performed By: #### 5 7021-8 #### [facility] CLIA [id number] [address] [place] [address] [place] Hemoglobin (Bld) [Mass/Vol] 12.6 g/dL Normal 11.5-15.5 [facility] Comment on above: Order Comment: Speci men Type: BLOOD SPECIMEN Ordering Facility: [facility] Address: [address] [place] [address] Performed By: #### 5 7021-8 #### [facility] CLIA [id number] [address] [place] [address] [place] Immature granulocytes (Bld) [#/Vol] 10*3/uL Normal <0.10 [facility] Comment on above: Order Comment: Speci men Type: BLOOD SPECIMEN Ordering Facility: [facility] Address: [address] [place] [address] Performed By: #### 5 7021-8 #### [facility] CLIA [id number] [address] [place] [address] [place] Immature granulocytes/100 WBC (Bld) 0.3 % Normal [facility] Comment on above: Order Comment: Speci men Type: BLOOD SPECIMEN Ordering Facility: [facility] Address: [address] [place] [address] Performed By: #### 5 7021-8 #### [facility] CLIA [id number] [address] [place] [address] [place] Lymphocytes (Bld) [#/Vol] 0.96 10*3/uL Low 1.00-4.00 [facility] Comment on above: Order Comment: Speci men Type: BLOOD SPECIMEN Ordering Facility: [facility] Address: [address] [place] [address] Performed By: #### 5 7021-8 #### [facility] CLIA [id number] [address] [place] [address] [place] Lymphocytes/100 WBC (Bld) 15.2 % Normal [facility] Comment on above: Order Comment: Speci men Type: BLOOD SPECIMEN Ordering Facility: [facility] Address: [address] [place] [address] Performed By: #### 5 7021-8 #### [facility] CLIA [id number] [address] [place] [address] [place] MCH (RBC) [Entitic mass] 29.8 pg Normal 26.0-34.0 [facility] Comment on above: Order Comment: Speci men Type: BLOOD SPECIMEN Ordering Facility: [facility] Address: [address] [place], [place] [address] Performed By: #### 5 7021-8 #### [facility] CLIA [id number] [address] [place] [address] STATES [facility] MCHC (RBC) [Mass/Vol] 33.2 g/dL Normal 30.5-36.0 [facility] Comment on above: Order Comment: Speci men Type: BLOOD SPECIMEN Ordering Facility: [facility] Address: [address] [place] [address] Performed By: #### 5 7021-8 #### [facility] CLIA [id number] [address] [place] [address] [place] MCV (RBC) [Entitic vol] 89.8 fL Normal 80.0-100.0 [facility] Comment on above: Order Comment: Speci men Type: BLOOD SPECIMEN Ordering Facility: [facility] Address: [address] [place] [address] Performed By: #### 5 7021-8 #### [facility] CLIA [id number] [address] [place] [address] [place] Monocytes (Bld) [#/Vol] 0.38 10*3/uL Normal <0.87 [facility] Comment on above: Order Comment: Speci men Type: BLOOD SPECIMEN Ordering Facility: [facility] Address: [address] [place] [address] Performed By: #### 5 7021-8 #### [facility] CLIA [id number] [address] [place] [address] [place] Monocytes/100 WBC (Bld) 6.0 % Normal [facility] Comment on above: Order Comment: Speci men Type: BLOOD SPECIMEN Ordering Facility: [facility] Address: [address] [place] [address] Performed By: #### 5 7021-8 #### [facility] CLIA [id number] [address] [place] [address] [place] Neutrophils (Bld) [#/Vol] 4.79 10*3/uL Normal 1.45-7.50 [facility] Comment on above: Order Comment: Speci men Type: BLOOD SPECIMEN Ordering Facility: [facility] Address: [address] [place] [address] Performed By: #### 5 7021-8 #### [facility] CLIA [id number] [address] [place] [address] [place] Neutrophils/100 WBC (Bld) 76.1 % Normal [facility] Comment on above: Order Comment: Speci men Type: BLOOD SPECIMEN Ordering Facility: [facility] Address: [address] [place] [address] Performed By: #### 5 7021-8 #### [facility] CLIA [id number] [address] [place] [address] [place] Nucleated RBC (Bld) [#/Vol] 10*3/uL Normal <0.01 [facility] Comment on above: Order Comment: Speci men Type: BLOOD SPECIMEN Ordering Facility: [facility] Address: [address] [place] [address] Performed By: #### 5 7021-8 #### [facility] CLIA [id number] [address] [place] [address] [place] Nucleated RBC/100 WBC (Bld) [Ratio] 0.0 /100 WBC Normal [facility] Comment on above: Order Comment: Speci men Type: BLOOD SPECIMEN Ordering Facility: [facility] Address: [address] [place] [address] Performed By: #### 5 7021-8 #### [facility] CLIA [id number] [address] [place] [address] [place] Platelet mean volume (Bld) [Entitic vol] 8.5 fL Low 9.0-12.7 [facility] Comment on above: Order Comment: Speci men Type: BLOOD SPECIMEN Ordering Facility: [facility] Address: [address] [place] [address] Performed By: #### 5 7021-8 #### [facility] CLIA [id number] [address] [place] [address] [place] Platelets (Bld) [#/Vol] 248 10*3/uL Normal 150-400 [facility] Comment on above: Order Comment: Speci men Type: BLOOD SPECIMEN Ordering Facility: [facility] Address: [address] [place] [address] Performed By: #### 5 7021-8 #### [facility] CLIA [id number] [address] [place] [address] [place] RBC (Bld) [#/Vol] 4.23 10*6/uL Normal 3.90-5.20 [facility] Comment on above: Order Comment: Speci men Type: BLOOD SPECIMEN Ordering Facility: [facility] Address: [address] [place] [address] Performed By: #### 5 7021-8 #### [facility] CLIA [id number] [address] [place] [address] [place] WBC (Bld) [#/Vol] 6.30 10*3/uL Normal 3.70-11.00 [facility] Comment on above: Order Comment: Speci men Type: BLOOD SPECIMEN Ordering Facility: [facility] Address: [address] [place], [place] [address] Performed By: #### 5 7021-8 #### [facility] CLIA [id number] [address] [place] [address] [place] CREATININE BLDon 09-04-2024 Creatinine [Mass/Vol] 0.97 mg/dL High 0.58-0.96 [facility] Comment on above: Order Comment: Speci men Type: BLOOD SPECIMEN Ordering Facility: [facility] Address: [address] [place] [address] Performed By: #### 1 920-8, 1742-6, CRET1, 3094-0 #### [id number] [address] [place] [address] [place] Creatinine and Glomerular filtration rate.predicted panel (S/P/Bld) 71 mL/min/1.73m??? Normal >=60 [facility] Comment on above: Order Comment: James nichole Type: BLOOD SPECIMEN Ordering Facility: [facility] Address: [address] [place] [address] Result Comment: Charissa mated Glomerular Filtration Rate (eGFR) is calculated using the 2020 CKD-EPI creatinine equation. This equation utilizes serum creatinine, sex, and age as parameters. The creatinine assay has traceable calibration to isotope dilution-mass spectrometry. Refer to KDIGO guidelines for clinical interpretation. In patients with unstable renal function, e.g. those with acute kidney injury, the eGFR may not accurately reflect actual GFR. Performed By: #### 1 920-8, 1742-6, CRET1, 3094-0 #### [facility] CLIA [id number] [address] [place] [address] [place] CRP SerPl-mCncon 09-04-2024 CRP [Mass/Vol] 2.1 mg/dL High <0.9 [facility] Comment on above: Order Comment: James nichole Type: BLOOD SPECIMEN Ordering Facility: [facility] Address: [address] [place] [address] Performed By: #### 1 988-5 #### [facility] CLIA [id number] [address] [place], [place] [address] [address] [place] ESR Westergren method (Bld) [Velocity]on 09-04-2024 ESR (Bld) [Velocity] 28 mm/h High 0-20 [facility] Comment on above: Order Comment: James nichole Type: BLOOD SPECIMEN Ordering Facility: [facility] Address: [address] [place] [address] Performed By: #### 4 537-7 #### [facility] CLIA [id number] [address] [place] [address] [place] Basic metabolic 2000 panelon 04-29-2024 Anion gap [Moles/Vol] 10 mmol/L Normal 8-15 [facility] Comment on above: Order Comment: Speci men Type: BLOOD SPECIMEN Ordering Facility: [facility] Address: [address] [place] [address] Performed By: #### 2 4331-1, 00079-2 #### [facility] CLIA [id number] [address] [place] [address] [place] Calcium [Mass/Vol] 9.0 mg/dL Normal 8.5-10.2 [facility] Comment on above: Order Comment: Speci men Type: BLOOD SPECIMEN Ordering Facility: [facility] Address: [address] [place] [address] Performed By: #### 2 4331-1, 78253-9 #### [facility] CLIA [id number] [address] [place] [address] [place] Chloride [Moles/Vol] 105 mmol/L Normal 98-107 [facility] Comment on above: Order Comment: Speci men Type: BLOOD SPECIMEN Ordering Facility: [facility] Address: [address] [place] [address] Performed By: #### 2 4331-1, 53885-9 #### [facility] CLIA [id number] [address] [place] [address] [place] CO2 [Moles/Vol] 23 mmol/L Normal 22-30 [facility] Comment on above: Order Comment: Speci men Type: BLOOD SPECIMEN Ordering Facility: [facility] Address: [address] [place] [address] Performed By: #### 2 4331-1, 45304-6 #### [facility] CLIA [id number] [address] [place] [address] [place] Creatinine [Mass/Vol] 0.82 mg/dL Normal 0.58-0.96 [facility] Comment on above: Order Comment: James nichole Type: BLOOD SPECIMEN Ordering Facility: [facility] Address: [address] [place] [address] Performed By: #### 2 4331-1, 80012-3 #### [facility] CLIA [id number] [address] [place] [address] [place] [facility] Creatinine and Glomerular filtration rate.predicted panel (S/P/Bld) 87 mL/min/1.73m??? Normal >=60 [facility] Comment on above: Order Comment: James nichole Type: BLOOD SPECIMEN Ordering Facility: [facility] Address: [address] [place] [address] Result Comment: Charissa mated Glomerular Filtration Rate (eGFR) is calculated using the 2020 CKD-EPI creatinine equation. This equation utilizes serum creatinine, sex, and age as parameters. The creatinine assay has traceable calibration to isotope dilution-mass spectrometry. Refer to KDIGO guidelines for clinical interpretation. In patients with unstable renal function, e.g. those with acute kidney injury, the eGFR may not accurately reflect actual GFR. Performed By: #### 2 4331-1, 87889-4 #### [facility] CLIA [id number] [address] [place] [address] [place] Glucose [Mass/Vol] 94 mg/dL Normal 74-99 [facility] Comment on above: Order Comment: James nichole Type: BLOOD SPECIMEN Ordering Facility: [facility] Address: [address] [place] [address] Result Comment: The [place] [employer] (ADA) provides guidance for cutoff values for fasting glucose and random glucose. The ADA defines fasting as no caloric intake for at least 8 hours. Fasting plasma glucose results between 100 to 125 mg/dL indicate increased risk for diabetes (prediabetes). Fasting plasma glucose results greater than or equal to 126 mg/dL meet the criteria for diagnosis of diabetes. In the absence of unequivocal hyperglycemia, results should be confirmed by repeat testing. In a patient with classic symptoms of hyperglycemia or hyperglycemic crisis, random plasma glucose results greater than or equal to 200 mg/dL meet the criteria for diagnosis of diabetes. Reference: Standards of Medical Care in Diabetes 2016, [place] [employer]. Diabetes Care. 2016.39(Suppl 1). Performed By: #### 2 4331-1, 64573-2 #### [facility] CLIA [id number] [address] [place] [address] [place] Potassium [Moles/Vol] 4.0 mmol/L Normal 3.7-5.1 [facility] Comment on above: Order Comment: Speci men Type: BLOOD SPECIMEN Ordering Facility: [facility] Address: [address] [place] [address] Performed By: #### 2 4331-1, 28368-7 #### [facility] CLIA [id number] [address] [place] [address] [place] Sodium [Moles/Vol] 138 mmol/L Normal 136-144 [facility] Comment on above: Order Comment: Speci men Type: BLOOD SPECIMEN Ordering Facility: [facility] Address: [address] [place] [address] Performed By: #### 2 4331-1, 76304-6 #### [facility] CLIA [id number] [address] [place] [address] [place] Urea nitrogen [Mass/Vol] 16 mg/dL Normal 7-21 [facility] Comment on above: Order Comment: Speci men Type: BLOOD SPECIMEN Ordering Facility: [facility] Address: [address] [place] [address] Performed By: #### 2 4331-1, 77355-7 #### [facility] CLIA [id number] [address] [place] [address] [place] Lipid 1996 panelon 4 Cholesterol [Mass/Vol] 226 mg/dL High <200 [facility] Comment on above: Order Comment: Speci men Type: BLOOD SPECIMEN Ordering Facility: [facility] Address: [address] [place] [address] Result Comment: <200 mg/dL, Desirable 200-239 mg/dL, Borderline high >239 mg/dL, High Performed By: #### 2 4331-1, 88800-7 #### [facility] CLIA [id number] [address] [place] [address] [place] Cholesterol in HDL [Mass/Vol] 83 mg/dL Normal >39 [facility] Comment on above: Order Comment: James nichole Type: BLOOD SPECIMEN Ordering Facility: [facility] Address: [address] [place] [address] Result Comment: 40-5 9 mg/dL, Acceptable >59 mg/dL, High: Negative risk factor for coronary heart disease <40 mg/dL, Low: Positive risk factor for coronary heart disease Performed By: #### 2 4331-1, 23137-8 #### [facility] CLIA [id number] [address] [place] [address] [place] Cholesterol in LDL [Mass/Vol] 115 mg/dL High <100 [facility] Comment on above: Order Comment: James nichole Type: BLOOD SPECIMEN Ordering Facility: [facility] Address: [address] [place] [address] Result Comment: <100 mg/dL, Optimal 100-129 mg/dL, Near optimal/above optimal 130-159 mg/dL, Borderline high 160-189 mg/dL, High >189 mg/dL, Very high Secondary prevention optimal LDL Cholesterol levels are recommended to be < 70 mg/dL Performed By: #### 2 4331-1, 73499-0 #### [facility] CLIA [id number] [address] [place] [address] [place] Cholesterol in LDL/Cholesterol in HDL [Mass ratio] 1.39 {ratio} Normal <2.54 [facility] Comment on above: Order Comment: James men Type: BLOOD SPECIMEN Ordering Facility: [facility] Address: [address] [place] [address] Result Comment: Reflucila aleman: 1. National Cholesterol Education Program ATP III Guideline At-A-Glance Quick Desk Reference: National Heart, Lung, and Blood [place]. National Institutes of Health. 2001: NIH Publication No. 01-3305. 2. An International Atherosclerosis Society position paper: global recommendations for the management of dyslipidemia: executive summary, Atherosclerosis. 2014: 232(2):410-413. Performed By: #### 2 4331-1, 74190-4 #### [facility] CLIA [id number] [address] [place] [address] [place] Cholesterol in VLDL [Mass/Vol] 28 mg/dL Normal <30 [facility] Comment on above: Order Comment: James nichole Type: BLOOD SPECIMEN Ordering Facility: [facility] Address: [address] [place] [address] Performed By: #### 2 4331-1, 05816-0 #### [facility] CLIA [id number] [address] [place] [address] [place] Cholesterol non HDL [Mass/Vol] 143 mg/dL High <130 [facility] Comment on above: Order Comment: James nichole Type: BLOOD SPECIMEN Ordering Facility: [facility] Address: [address] [place] [address] Result Comment: <130 mg/dL, Optimal 130-159 mg/dL, Near optimal/above optimal 160-189 mg/dL, Borderline high 190-219 mg/dL, High >219 mg/dL, Very high Secondary prevention optimal non HDL Cholesterol levels are recommended to be <100 mg/dL Performed By: #### 2 4331-1, 96486-0 #### [facility] CLIA [id number] [address] [place] [address] [place] Cholesterol.total/C holesterol in HDL [Mass ratio] 2.72 {ratio} Normal <5.10 [facility] Comment on above: Order Comment: James nichole Type: BLOOD SPECIMEN Ordering Facility: [facility] Address: [address] [place] [address] Performed By: #### 2 4331-1, 73457-4 #### [facility] CLIA [id number] [address] [place] [address] [place] FASTING TIME 16 hrs Normal [facility] Comment on above: Order Comment: Speci men Type: BLOOD SPECIMEN Ordering Facility: [facility] Address: [address] [place] [address] Performed By: #### 2 4331-1, 50292-8 #### [facility] CLIA [id number] [address] [place] [address] [place] Triglyceride [Mass/Vol] 142 mg/dL Normal <150 [facility] Comment on above: Order Comment: Speci men Type: BLOOD SPECIMEN Ordering Facility: [facility] Address: [address] [place] [address] Result Comment: <150 mg/dL, Normal 150-199 mg/dL, Borderline high 200-499 mg/dL, High >499 mg/dL, Very high Performed By: #### 2 4331-1, 25002-8 #### [facility] CLIA [id number] [address] [place] [address] [place] XR Ribs - left Views and Tess st PAon 04-29-2024 IMPRESSION: No acute radiographic abnormality. Eligibility Technician: YASMEEN Transcribe Date/Time: Apr 29 2024 7:55A Dictated by : VIANNEY MORALES MD This examination was interpreted and the report reviewed and electronically signed by: VIANNEY MORALES MD on Apr 29 2024 7:56AM [facility] DIVISION OF RADIOLOGY * * *Final Report* * * DATE OF EXAM: Apr 22 2024 3:12PM [id number] - XR RIB/CHST 3V AP RIB/OBL/CHST L / PROCEDURE REASON: Chest wall pain * * * * Physician Interpretation * * * * EXAMINATION: X-ray chest and left ribs Clinical History: Chest wall pain M: XC1_4 Comparison: None RESULT: Lines, tubes, and devices: None. Lungs and pleura: No consolidation. No lung mass. No pleural effusion. Cardiomediastinal silhouette: Normal cardiomediastinal silhouette. Musculoskeletal: No acute fracture DIVISION OF RADIOLOGY Provider, Dinorah sotomayor [place] - 04/29/2024 * * *Final Report* * * DATE OF EXAM: Apr 22 2024 3:12PM [id number] - XR RIB/CHST 3V AP RIB/OBL/CHST L / PROCEDURE REASON: Chest wall pain * * * * Physician Interpretation * * * * EXAMINATION: X-ray chest and left ribs Clinical History: Chest wall pain M: XC1_4 Comparison: None RESULT: Lines, tubes, and devices: None. Lungs and pleura: No consolidation. No lung mass. No pleural effusion. Cardiomediastinal silhouette: Normal cardiomediastinal silhouette. Musculoskeletal: No acute fracture IMPRESSION IMPRESSION: No acute radiographic abnormality. Eligibility Technician: YASMEEN Transcribe Date/Time: Apr 29 2024 7:55A Dictated by : VIANNEY MORALES MD This examination was interpreted and the report reviewed and electronically signed by: VIANNEY MORALES MD on Apr 29 2024 7:56AM EST [facility] XR Ribs - left Views and Tess st PAOrdered By: Ccf Provider on 04-29-2024 [facility] CNOVon 04-22-2024 CNOV Office Visit (ANETTEPWS ) -------- ALONA RODRIGEZ ([id number]) 1975 F Date Time Provider Department 04/22/24 2:40 PM SINA VANEGASWS During your visit today, we recorded the following information about you: Pulse Blood pressure Weight 74/minute 122/80 77.1 kg Sina Vanegas MD 04/22/2024 2:48 PM Signed Patient presents with: Physical HPI: Patient presents today for office visit for physical. Sertaline is working well. No side effects from meds. Discussed weight. No gi issues. Still seeing rheum. Remains on plaquenil. Feels meds are working well. Saw derm Keeping up with eye appt. MEDICATIONS: Current Outpatient Medications Medication Sig omeprazole (PRILOSEC) 20 mg capsule Take 1 capsule by mouth once daily. sertraline (ZOLOFT) 100 mg tablet Take 1 tablet by mouth once daily. hydrOXYchloroQUINE (PLAQUENIL) 200 mg tablet Take 1 tablet by mouth once daily. Etonogestrel-Ethinyl Estradiol (NUVARING) 0.12-0.015 mg/24 hr vaginal ring Insert vaginally for 3 weeks then replace omeprazole (PRILOSEC) 20 mg capsule Take 1 capsule by mouth once daily. No current facility-administered medications for this visit. ALLERGIES: ALLERGIES No Known Allergies PAST MEDICAL HISTORY Diagnosis Date Abnormal Pap smear and cervical HPV (human papillomavirus) colp 05/2010 BRANDI 1 Arthritis Depression Hx of colonoscopy 01/05/[address] Givens PAST SURGICAL HISTORY Procedure Laterality Date DILATION AND CURETTAGE DXAND/THER NONOBSTETRIC EGD 02/01/2021 SKIN BIOPSY HX FAMILY HISTORY Problem Relation Age of Onset None Mother Cancer Father Pre cancer Moles Cervical Cancer Sister Resolved Diabetes Maternal Grandmother Heart Maternal Grandmother Hypertension Maternal Grandmother other (Other) Paternal Grandmother macular degeneratin.iddm,tias other (Other) Paternal Grandfather macular degeneration, Colon Cancer Paternal Grandfather Diabetes Maternal Uncle other (Macular Degeneration) Paternal Uncle Stroke Paternal Uncle other (MALIGNANT MELANOMA) Paternal Uncle PATERNAL AUNT other (Macular Degeneration) Other PGUNCLE Social History Tobacco Use Smoking status: Never Smokeless tobacco: Never Substance Use Topics Alcohol use: Yes Comment: Occasionally Drug use: No Reviewed current medications, allergies, past medical history, surgical history, family history and social history today. REVIEW OF SYSTEMS HEENT: Negative for frequent or significant headaches, No changes in hearing or vision, no nose bleeds or other nasal problems RESPIRATORY: Negative for cough, hemoptysis, wheezing, COPD, dyspnea or shortness of breath CARDIOVASCULAR: Negative for chest pain, leg swelling, hypertension, CHF or palpitations, has chronic spot of anterior chest wall pain laying on her back only. Offered further work up. GI: No nausea, vomiting, or diarrhea : No history of dysuria, frequency or incontinence MUSCULOSKELETAL: per rheum. SKIN: Negative for lesions, rash, and itching All other reviewed and negative other than HPI. HEALTH MAINTENANCE: Reviewed health maintenance issues today and recommended the following in detail. HIV Screening Never done Hepatitis B Vaccine(1 of 3 - 19+ 3-dose series) Never done DTaP,Tdap,Td Vaccine(2 - Tdap) due on 06/13/2019 VITALS: BP 122/80 Pulse 74 Wt 77.1 kg (170 lb) LMP 04/06/2016 (Approximate) SpO2 99% BMI 30.11 kg/m? Last 4 Encounter Wt Readings: Date: Wt: 01/05/2024 73.5 kg (162 lb 0.6 oz) 11/27/2023 73.5 kg (162 lb) 09/06/2023 74.9 kg (165 lb 1.6 oz) 05/26/2023 76.6 kg (168 lb 14.4 oz) PHYSICAL EXAMINATION: General appearance: Well appearing, alert, in no acute distress, well-hydrated, well nourished. Skin: Skin color, texture, turgor normal, no suspicious rashes or lesions Head: Normocephalic, no masses, lesions, tenderness or abnormalities Eyes: Anicteric sclera. Pupils are equally round and reactive to light. Extraocular movements are intact. Ears: External ears normal, canals clear Nose/Sinuses: Nares normal, septum midline, mucosa normal, no drainage or sinus tenderness Oropharynx: Lips, mucosa, and tongue normal, teeth and gums normal, oropharynx normal Neck: Supple, no adenopathy; thyroid symmetric, normal size, no bruits Chest wall shows tenderness over anterior rib on left. No deformity Lungs: Lungs clear to auscultation. No wheezing, rhonchi, rales Heart: RRR without murmur, gallop, or rubs. No ectopy Abdomen: Normal abdominal exam, Abdomen soft, non-tender. Bowel sounds normal. No masses, organomegaly Extremities: No deformities, edema, skin discoloration, clubbing or cyanosis. Good capillary refill. Musculoskeletal: No joint swelling, deformity, or tenderness Peripheral pulses: Normal Neuro: Negative. ASSESSMENT/PLAN: 1. Well adult exam - ICD9: V7 (more content not included)... Normal [facility] XR RIB/CHST 3V AP RIB/OBL/CH ST Abundio 04-22-2024 XR RIB/CHST 3V AP RIB/OBL/CHST L * * *Final Report* * * DATE OF EXAM: Apr 22 2024 3:12PM [id number] - XR RIB/CHST 3V AP RIB/OBL/CHST L / PROCEDURE REASON: Chest wall pain * * * * Physician Interpretation * * * * EXAMINATION: X-ray chest and left ribs Clinical History: Chest wall pain M: XC1_4 Comparison: None RESULT: Lines, tubes, and devices: None. Lungs and pleura: No consolidation. No lung mass. No pleural effusion. Cardiomediastinal silhouette: Normal cardiomediastinal silhouette. Musculoskeletal: No acute fracture IMPRESSION: No acute radiographic abnormality. Eligibility Technician: PSCB Transcribe Date/Time: Apr 29 2024 7:55A Dictated by : VIANNEY MORALES MD This examination was interpreted and the report reviewed and electronically signed by: VIANNEY MORALES MD on Apr 29 2024 7:56AM EST [id number] Normal [facility] XR Ribs - left Views and Tess st PAon 04-22-2024 Radiology Study observation (narrative) [facility] Colonoscopy Study observatio non 01-05-2024 [facility] ALT/SGPTon 09-06-2023 ALT [Catalytic activity/Vol] 12 U/L 7 - 38 U/L [facility] AST/SGOT BLDon 09-06-2023 AST [Catalytic activity/Vol] 16 U/L 13 - 35 U/L [facility] BUN BLOODon 09-06-2023 Urea nitrogen [Mass/Vol] 15 mg/dL 7 - 21 mg/dL [facility] C-REACTIVE PROTEIN (CRP)on 1 CRP [Mass/Vol] 1.8 mg/dL High <0.9 mg/dL [facility] CBC W Auto Differential pane l (Bld)on 09-06-2023 Basophils (Bld) [#/Vol] <0.11 k/uL [facility] Basophils/100 WBC (Bld) 0.3 % [facility] Differential cell count method Nom (Bld) Auto [facility] Eosinophils (Bld) [#/Vol] 0.09 10*3/uL <0.46 k/uL [facility] Eosinophils/100 WBC (Bld) 1.4 % [facility] Erythrocyte distribution width (RBC) [Ratio] 12.4 % 11.5 - 15.0 % [facility] Hematocrit (Bld) [Volume fraction] 37.8 % 36.0 - 46.0 % [facility] Hemoglobin (Bld) [Mass/Vol] 12.4 g/dL 11.5 - 15.5 g/dL [facility] Immature granulocytes (Bld) [#/Vol] <0.10 k/uL [facility] Immature granulocytes/100 WBC (Bld) 0.3 % [facility] Lymphocytes (Bld) [#/Vol] 1.29 10*3/uL 1.00 - 4.00 k/uL [facility] Lymphocytes/100 WBC (Bld) 20.5 % [facility] MCH (RBC) [Entitic mass] 29.6 pg 26.0 - 34.0 pg [facility] MCHC (RBC) [Mass/Vol] 32.8 g/dL 30.5 - 36.0 g/dL [facility] MCV (RBC) [Entitic vol] 90.2 fL 80.0 - 100.0 fL [facility] Monocytes (Bld) [#/Vol] 0.45 10*3/uL <0.87 k/uL [facility] Monocytes/100 WBC (Bld) 7.2 % [facility] Neutrophils (Bld) [#/Vol] 4.42 10*3/uL 1.45 - 7.50 k/uL [facility] Neutrophils/100 WBC (Bld) 70.3 % [facility] Nucleated RBC (Bld) [#/Vol] <0.01 k/uL [facility] Nucleated RBC/100 WBC (Bld) [Ratio] 0.0 /100 WBC [facility] Platelet mean volume (Bld) [Entitic vol] 9.1 fL 9.0 - 12.7 fL [facility] Platelets (Bld) [#/Vol] 278 10*3/uL 150 - 400 k/uL [facility] RBC (Bld) [#/Vol] 4.19 10*6/uL 3.90 - 5.2 0 m/uL [facility] WBC (Bld) [#/Vol] 6.29 10*3/uL 3.70 - 11. 00 k/uL [facility] CREATININE BLDon 09-06-2023 Creatinine [Mass/Vol] 0.91 mg/dL 0.58 - 0.96 mg/dL [facility] Estimated Glomerular Filtration Rate 77 mL/min/1.73m >=60 mL/min/1.73m [facility] ESR Westergren method (Bld) [Velocity]on 09-06-2023 ESR (Bld) [Velocity] 30 mm/h High 0 - 20 mm/hr [facility] C3 COMPLEMENT [facility] 05-26-20 Complement C3 [Mass/Vol] 139 mg/dL 86 - 166 mg/dL [facility] C4 COMPLEMENT [facility] 05-26-20 Complement C4 [Mass/Vol] 31 mg/dL 13 - 46 mg/dL [facility] HEP B CORE AB TOTALon 2022 HBV core Ab Ql (S) Negative Negative [facility] HEP B SURF AG SCRNon 023 HBV surface Ag Ql (S) Negative Negative [facility] HEPATITIS C ANTIBODY IA WITH CONFIRMATIONon 05-26-2023 HCV Ab Ql (S) Negative Negative [facility] No Panel Informationon 05-26 [facility] Vital Signs Date Time Vital Sign Value Performing Clinician Facility 07-02-2025 14:41-0400 Body height 160.[address] Sina Vanegas MD Work Phone: [place] 07-02-2025 14:37-0400 Body mass index (BMI) [Ratio] 30.8 kg/m2 Dr. Sina Vanegas MD Work Phone: [place] 07-02-2025 14:37-0400 Body weight 78.[address] Sina Vanegas MD Work Phone: [place] 07-02-2025 14:37-0400 Diastolic blood pressure 80 mm[Hg] Dr. Sina Vanegas MD Work Phone: [place] 07-02-2025 14:37-0400 Systolic blood pressure 114 mm[Hg] Dr. Sina Vanegas MD Work Phone: [place] 09-11-2024 13:31-0400 Body height 160 cm Mariajose Reynoso MD Work Phone: [facility] 09-11-2024 13:31-0400 Body mass index (BMI) [Ratio] 30.42 kg/m2 Mariajose Reynoso MD Work Phone: [facility] 09-11-2024 13:31-0400 Body temperature 97.39 [degF] Mariajose Reynoso MD Work Phone: [facility] 09-11-2024 13:31-0400 Body weight 77.9 kg Mariajose Reynoso MD Work Phone: [facility] 09-11-2024 13:31-0400 Diastolic blood pressure 81 mm[Hg] Mariajose Reynoso MD Work Phone: [facility] 09-11-2024 13:31-0400 Heart rate 85 /min Mariajose Reynoso MD Work Phone: [facility] 09-11-2024 13:31-0400 Systolic blood pressure 129 mm[Hg] Mariajose Reynoso MD Work Phone: [facility] 04-22-2024 14:33-0400 Body mass index (BMI) [Ratio] 30.11 kg/m2 Sina Vanegas MD Work Phone: [facility] 04-22-2024 14:33-0400 Body weight 77.11 kg Sina Vanegas MD Work Phone: [facility] 04-22-2024 14:33-0400 Diastolic blood pressure 80 mm[Hg] Sina Vanegas MD Work Phone: [facility] 04-22-2024 14:33-0400 Heart rate 74 /min Sina Vanegas MD Work Phone: [facility] 04-22-2024 14:33-0400 SaO2% (BldA) [Mass fraction] 99 % Sina Vanegas MD Work Phone: [facility] 04-22-2024 14:33-0400 Systolic blood pressure 122 mm[Hg] Sina Vanegas MD Work Phone: [facility] 01-05-2024 09:40-0500 Diastolic blood pressure 82 mm[Hg] Irene Givens MD Work Phone: [facility] 01-05-2024 09:40-0500 Heart rate 91 /min Irene Givens MD Work Phone: [facility] 01-05-2024 09:40-0500 Respiratory rate 16 /min Irene Givens MD Work Phone: [facility] 01-05-2024 09:40-0500 SaO2% (BldA) [Mass fraction] 98 % Irene Givens MD Work Phone: [facility] 01-05-2024 09:40-0500 Systolic blood pressure 133 mm[Hg] Irene Givens MD Work Phone: [facility] 01-05-2024 07:46-0500 Body temperature 97.9 [degF] Irene Givens MD Work Phone: [facility] 01-05-2024 07:46-0500 Body weight 73.5 kg Irene Givens MD Work Phone: [facility] 09-06-2023 16:20-0400 Body height 160 cm Patnemesio Reynoso MD Work Phone: [facility] 09-06-2023 16:20-0400 Body temperature 98.01 [degF] Mariajose Reynoso MD Work Phone: [facility] 09-06-2023 16:20-0400 Body weight 74.89 kg Mariajose Reynoso MD Work Phone: [facility] 09-06-2023 16:20-0400 Diastolic blood pressure 89 mm[Hg] Mariajose Reynoso MD Work Phone: [facility] 09-06-2023 16:20-0400 Heart rate 87 /min Mariajose Reynoso MD Work Phone: [facility] 09-06-2023 16:20-0400 Systolic blood pressure 143 mm[Hg] Mariajose Reynoso MD Work Phone: [facility] 05-26-2023 11:04-0400 Body height 161 cm Patompong Ungprasert MD Work Phone: [facility] 05-26-2023 11:04-0400 Body temperature 98.4 [degF] Mariajose Reynoso MD Work Phone: [facility] 05-26-2023 11:04-0400 Body weight 76.61 kg Mariajose Reynoso MD Work Phone: [facility] 05-26-2023 11:04-0400 Diastolic blood pressure 74 mm[Hg] Mariajose Reynoso MD Work Phone: [facility] 05-26-2023 11:04-0400 Heart rate 72 /min Mariajose eRynoso MD Work Phone: [facility] 05-26-2023 11:04-0400 Systolic blood pressure 133 mm[Hg] Mariajose Reynoso MD Work Phone: [facility] 05-23-2023 14:53-0400 Diastolic blood pressure 84 mm[Hg] Sina Vanegas MD Work Phone: [facility] 05-23-2023 14:53-0400 Systolic blood pressure 132 mm[Hg] Sina Vanegas MD Work Phone: [facility] 05-23-2023 14:33-0400 Body height 161 cm Sina Vanegas MD Work Phone: [facility] 05-23-2023 14:33-0400 Body weight 75.03 kg Sina Vanegas MD Work Phone: [facility] 05-23-2023 14:33-0400 Heart rate 77 /min Sina Vanegas MD Work Phone: [facility] 05-23-2023 14:33-0400 SaO2% (BldA) [Mass fraction] 97 % Sina Vanegas MD Work Phone: [facility] 04-20-2023 14:52-0400 Body height 161 cm Sina Vanegas MD Work Phone: [facility] 06-08-2023 14:52-0400 Body weight 75.3 kg Sina Vanegas MD Work Phone: [facility] 04-20-2023 14:52-0400 Diastolic blood pressure 78 mm[Hg] Sina Vanegas MD Work Phone: [facility] 04-20-2023 14:52-0400 Heart rate 86 /min Sina Vanegas MD Work Phone: [facility] 04-20-2023 14:52-0400 Respiratory rate 16 /min Sina Vanegas MD Work Phone: [facility] 04-20-2023 14:52-0400 SaO2% (BldA) [Mass fraction] 99 % Sina Vanegas MD Work Phone: [facility] 04-20-2023 14:52-0400 Systolic blood pressure 130 mm[Hg] Sina Vanegas MD Work Phone: [facility] 04-19-2022 11:21-0400 Diastolic blood pressure 92 mm[Hg] Sudha Haagen INSTRUMENT STERILIZER.LINE MANAGER Work Phone: [facility] 04-19-2022 11:21-0400 Heart rate 80 /min Sudha Haagen INSTRUMENT STERILIZER.LINE MANAGER Work Phone: [facility] 04-19-2022 11:21-0400 Respiratory rate 18 /min Sudha Haagen INSTRUMENT STERILIZER.LINE MANAGER Work Phone: [facility] 04-19-2022 11:21-0400 SaO2% (BldA) [Mass fraction] 99 % Sudha Haagen INSTRUMENT STERILIZER.LINE MANAGER Work Phone: [facility] 04-19-2022 11:21-0400 Systolic blood pressure 136 mm[Hg] Sudha Haagen INSTRUMENT STERILIZER.LINE MANAGER Work Phone: [facility] 01-31-2022 14:48-0400 Body weight 68.86 kg Sina Vanegas MD Work Phone: [facility] 01-31-2022 14:48-0400 Diastolic blood pressure 84 mm[Hg] Sina Vanegas MD Work Phone: [facility] 01-31-2022 14:48-0400 Heart rate 80 /min Sina Vanegas MD Work Phone: [facility] 01-31-2022 14:48-0400 Respiratory rate 16 /min Sina Vanegas MD Work Phone: [facility] 01-31-2022 14:48-0400 Systolic blood pressure 132 mm[Hg] Sina Vanegas MD Work Phone: [facility] 12-31-2021 09:36-0500 Diastolic blood pressure 78 mm[Hg] Dr. Sina Vanegas Work Phone: [place] Work Phone: 12-31-2021 09:36-0500 Systolic blood pressure 124 mm[Hg] Dr. Sina Vanegas Work Phone: [place] Work Phone: 12-31-2021 09:10-0500 Body height 160.[address] Sina Vanegas Work Phone: [place] Work Phone: 12-31-2021 09:10-0500 Body mass index (BMI) [Ratio] 26 kg/m2 Dr. Sina Vanegas Work Phone: [place] Work Phone: 12-31-2021 09:10-0500 Body weight 66.[address] Sina Vanegas Work Phone: [place] Work Phone: 12-08-2021 10:06-0500 Body mass index (BMI) [Ratio] 26 kg/m2 Dr. Sina Vanegas Work Phone: [place] Work Phone: 12-08-2021 10:06-0500 Body weight 66.[address] Sina Vanegas Work Phone: [place] Work Phone: 12-08-2021 10:06-0500 Diastolic blood pressure 86 mm[Hg] Dr. Sina Vanegas Work Phone: [place] Work Phone: 12-08-2021 10:06-0500 Systolic blood pressure 129 mm[Hg] Dr. Sina Vanegas Work Phone: [place] Work Phone: 11-24-2021 10:39-0500 Body mass index (BMI) [Ratio] 26.4 kg/m2 Dr. Sina Vanegas Work Phone: [place] Work Phone: 11-24-2021 10:39-0500 Body weight 67.[address] Sina Vanegas Work Phone: [place] Work Phone: 11-24-2021 10:39-0500 Diastolic blood pressure 90 mm[Hg] Dr. Sina Vanegas Work Phone: [place] Work Phone: 11-24-2021 10:39-0500 Systolic blood pressure 130 mm[Hg] Dr. Sina Vanegas Work Phone: [place] Work Phone: Encounters Encounter Date Encounter Type Care Provider Facility Start: 07-02-2025 Encounter for gynecological examination (general) (routine) with abnormal findings Armida Cesar [facility] Start: 07-02-2025 End: 07-02-2025 Patient encounter procedure Armida Cesar [facility] Work Phone: Start: 07-02-2025 End: 07-02-2025 [facility]: 07-02-2025 End: 07-02-[address] Sina Vanegas MD Work Phone: [facility] Start: 04-10-2025 End: 04-11-2025 Refill Sina Vanegas MD Work Phone: [facility] Comment on above: Refill Request Start: 03-07-2025 End: 03-07-2025 ambulatory SINA VANEGAS Facility:[facility] Start: 03-05-2025 End: 03-05-2025 Patient encounter procedure Armida Cesar PHOTOGRAPHER APPRENTICE-C -Ultrasound [facility] Work Phone: Start: 03-05-2025 End: 03-05-2025 ambulatory Armida Cesar PHOTOGRAPHER APPRENTICE Facility:[place] Start: 11-13-2024 End: 11-18-2024 ambulatory Sina Vanegas MD Work Phone: Internal Medicine [place] [id number] Start: 10-29-2024 End: 10-30-2024 ambulatory Mariajose Reynoso MD Work Phone: Rheumatology Comment on above: Medication update Start: 10-09-2024 End: 10-09-2024 ambulatory Armida Cesar PHOTOGRAPHER APPRENTICE Facility:[place] Start: 09-11-2024 End: 09-11-2024 ambulatory SINA VANEGAS Facility:[facility] Start: 09-11-2024 End: 09-11-2024 Patient encounter procedure Mariajose Reynoso MD Work Phone: Rheumatology Comment on above: Polyarticular psoria tic arthritis (HCC) (Primary Dx); Seronegative rheumatoid arthritis (HCC); Psoriasis vulgaris; Long-term use of hydroxychloroquine Start: 09-04-2024 End: 09-04-2024 ambulatory SINA VANEGAS Facility:[facility] Start: 05-29-2024 Refill Mariajose Reynoso MD Work Phone: Rheumatology Comment on above: Refill Request Start: 04-29-2024 End: 04-29-2024 ambulatory SINA VANEGAS Facility:[facility] Start: 04-22-2024 End: 04-22-2024 Subsequent hospital visit by physician Tatyana [facility] Work Phone: Radiology Comment on above: Chest wall pain [R07 .89] Start: 04-22-2024 End: 04-22-2024 ambulatory SINA VANEGAS Facility:[facility] Start: 04-22-2024 End: 04-22-2024 Patient encounter procedure Sina Vanegas MD Work Phone: [facility] [place] Comment on above: Well adult exam (Lesley jenna Dx); ERICKSON (generalized anxiety disorder); Seronegative rheumatoid arthritis (HCC); Panic disorder; Moderate mixed hyperlipidemia not requiring statin therapy; Chest wall pain Start: 04-22-2024 End: 04-22-2024 Patient encounter status Sina Vanegas MD Work Phone: [facility] Start: 04-09-2024 Refill Sina Vanegas MD Work Phone: Internal Medicine [place] Comment on above: Refill Request Start: 03-08-2024 End: 03-08-2024 ambulatory Mariajose Reynoso MD Work Phone: Rheumatology Comment on above: Seronegative rheumat oid arthritis (HCC) (Primary Dx); Long-term use of hydroxychloroquine Start: 03-08-2024 End: 03-08-2024 Telemedicine consultation with patient Mariajose Reynoso MD Work Phone: Rheumatology Start: 02-10-2024 Refill Sina Vanegas MD Work Phone: Internal [facility] [place] Start: 02-05-2024 Refill Sina Vanegas MD Work Phone: [facility] [place] Comment on above: Refill Request Start: 01-05-2024 End: 01-05-2024 Subsequent hospital visit by physician Irene Givens MD Work Phone: Ambulatory Surgery Comment on above: Screening for colon cancer [Z12.11] Start: 01-02-2024 Refill Sina Vanegas MD Work Phone: [facility] [place] Comment on above: Refill Request Start: 10-06-2023 End: 10-06-2023 ambulatory [place] Work Phone: Start: 10-06-2023 End: 10-06-2023 Patient encounter procedure [facility] Work Phone: Start: 09-06-2023 End: 09-06-2023 Patient encounter procedure Mariajose Reynoso MD Work Phone: Rheumatology Comment on above: Seronegative rheumat oid arthritis (HCC) (Primary Dx); Long-term use of hydroxychloroquine Start: 08-04-2023 Refill Sina Vanegas MD Work Phone: [facility] [place] Comment on above: Refill Request Start: 08-01-2023 ambulatory Mariajose Reynoso MD Work Phone: Rheumatology Comment on above: Medication question Start: 05-26-2023 End: 05-26-2023 Subsequent hospital visit by physician [facility] Comment on above: Polyarthralgia [M25. 50] Start: 05-26-2023 End: 05-26-2023 Patient encounter procedure Mariajose Reynoso MD Work Phone: Rheumatology Comment on above: Inflammatory arthrit is (Primary Dx); Polyarthralgia Start: 05-23-2023 End: 05-23-2023 Patient encounter procedure Sina Vanegas MD Work Phone: [facility] [place] Comment on above: Panic disorder (Prim judy Dx); Arthralgia, unspecified joint; GERD without esophagitis Start: 05-21-2023 ambulatory Sina Vanegas MD Work Phone: [facility] [place] Comment on above: Arthritis issue Start: 04-20-2023 End: 04-20-2023 Patient encounter procedure Sina Vanegas MD Work Phone: [facility] [place] Comment on above: Well adult exam (Lesley jenna Dx); Panic disorder; Weight gain; Screening for colon cancer Start: 04-20-2023 End: 04-20-2023 Patient encounter status Sina Vanegas MD Work Phone: [facility] [place] Start: 04-14-2023 ambulatory Sina Vanegas MD Work Phone: [facility] [place] Comment on above: Weight topic Start: 03-02-2023 ambulatory Janis Ayala MA [facility] Start: 03-02-2023 Follow-up encounter Janis Ayala MA [facility] [place] Comment on above: Appointment (Follow up) Start: 01-30-2023 Refill Sina Vanegas MD Work Phone: Family Medicine [place] Comment on above: Refill Request Start: 12-20-2022 Telephone encounter Sina Vanegas MD Work Phone: [facility] Comment on above: insurance update Start: 10-26-2022 ambulatory Sina Vanegas MD Work Phone: Internal Medicine [facility] [place] Start: 09-22-2022 Refill Sudha Mcrae INSTRUMENT STERILIZER.LINE MANAGER Work Phone: [facility] Comment on above: Refill Request Start: 09-15-2022 End: 09-15-2022 ambulatory [place] Work Phone: Start: 09-15-2022 End: 09-15-2022 Patient encounter procedure [facility] Start: 05-23-2022 Refill Leslie Vincent INSTRUMENT STERILIZER.LINE MANAGER Work Phone: Gastroenterology Comment on above: Refill Request Start: 04-19-2022 End: 04-19-2022 Office outpatient visit 25 minutes Sudha Mcrae INSTRUMENT STERILIZER.LINE MANAGER Work Phone: [facility] Comment on above: ERICKSON (generalized anx iety disorder) (Primary Dx); Fluid level behind tympanic membrane of left ear Start: 03-14-2022 End: 03-14-2022 ambulatory Sina Vanegas MD Work Phone: [facility] Comment on above: Anxiety with depress ion (Primary Dx) Start: 03-14-2022 End: 03-14-2022 Telemedicine consultation with patient Sina Vanegas MD Work Phone: [facility] Start: 01-31-2022 End: 01-31-2022 Patient encounter procedure Sina Vanegas MD Work Phone: [facility] Comment on above: Panic disorder (Prim judy Dx); Anxiety with depression; Fatigue, unspecified type Start: 12-31-2021 End: 12-31-[address] Sina Vanegas Work Phone: [facility] Start: 12-08-2021 End: 12-08-[address] Sina Vanegas Work Phone: [facility] Start: 11-24-2021 End: 11-24-[address] Sina Vanegas Work Phone: [facility] Procedures Date Procedure Procedure Detail Performing Clinician Start: 03-05-[address] Bernardino Vanegas MD Work Phone: Start: 04-29-2024 Lipid 1996 panel - S nicole or Plasma Mariajose Reynoso MD Work Phone: Start: 04-22-2024 Radex ribs uni w/posteroant ch minimum 3 views Sina Vanegas MD Work Phone: Start: 01-05-2024 Colonoscopy flx dx w /collj spec when pfrmd Irene Givens MD Work Phone: Start: 01-05-2024 Colonoscopy Irene Givens MD Work Phone: Start: 10-06-2023 Screening mammography Start: 05-26-2023 Joint survey single view 2 or more joints Mariajose Reynoso MD Work Phone: Start: 05-23-2023 Lipid 1996 panel - S nicole or Plasma Sina Vanegas MD Work Phone: Start: 09-15-2022 End: 09-15-2022 Screening mammography Start: 09-13-2021 Mammography Sina Metzger MD Work Phone: Plan of Treatment Date Care Activity Detail Author Start: 04-29-2029 Lipid panel Lipid Screening [facility] Start: 05-23-2028 Lipid 1996 panel - Serum or Plasma Lipid Screening [facility] Start: 05-23-2028 Lipid panel Lipid Screening [facility] Start: 05-23-2028 LIPID SCREEN LIPID SCREEN [facility] Start: 03-06-2028 HPV TESTING HPV TESTING [facility] Start: 03-06-2028 PAP TESTING PAP TESTING [facility] Start: 03-06-2028 Screening for malignant neoplasm of cervix [facility] Start: 04-29-2027 Diabetes Screening Diabetes Screening [facility] Start: 05-23-2026 DIABETES SCREEN DIABETES SCREEN [facility] Start: 05-23-2026 Diabetes Screening Diabetes Screening [facility] Start: 04-22-2025 Hepatitis B Vaccine (1 of 3 - 19+ 3-dose series) Hepatitis B Vaccine (1 of 3 - 19+ 3-dose series) [facility] Comment on above: Postponed from 1992 (Declined at t his time) Start: 04-22-2025 HIV screening HIV Screening [facility] Comment on above: Postponed from 1991 (Declined at t his time) Start: 04-22-2025 Urine microalbumin profile DTaP,Tdap,Td Vaccine (2 - Tdap) [facility] Comment on above: Postponed from 06/13/2019 (Declined at t his time) Start: 03-07-2025 End: 03-07-2025 ambulatory 03/07/2025 4:00 PM EDT [facility] Rheumatology [address] [id number] Mariajose Reynoso MD [address] [id number] fu per ungprasert staff msg date/time given Rheumatology Comment on above: fu per ungprasert staff msg date/time [facility] Start: 01-05-2025 Screening for malignant neoplasm of colon [facility] Start: 11-27-2024 Covid-19 Vaccine ( season) Covid-19 Vaccine ( season) [facility] Comment on above: Postponed from 07/14/2023 (Declined at t his time) Start: 11-27-2024 Shingrix Vaccine (1 of 2) Shingrix Vaccine (1 of 2) [facility] Comment on above: Postponed from 2023 (Declined at t his time) Start: 11-01-2024 DIABETES SCREEN DIABETES SCREEN [facility] Start: 10-29-2024 End: 10-29-2024 Patient encounter procedure 10/29/2024 2:20 PM EST Office Visit [facility] [address] [place] [address] Sina Vanegas MD [address] [place] [address] 6 month follow up [facility] Comment on above: 6 month follow up Start: 10-10-2024 Screening for malignant neoplasm of breast Mammogram Screening [facility] Start: 09-11-2024 End: 09-11-2024 Patient encounter procedure 09/11/2024 2:00 PM EDT Office Visit Rheumatology [address] [id number] Mariajose Reynoso MD [address] [id number] fu per ungprasert staff msg date/time given Rheumatology Comment on above: fu per ungprasert staff msg date/time [facility] Start: 07-14-2024 Covid-19 Vaccine ( season) Covid-19 Vaccine ( season) [facility] Start: 07-14-2024 Covid-19 Vaccine ( season) Covid-19 Vaccine ( season) [facility] Start: 07-14-2024 Influenza vaccination Influenza Vaccine (#1) [facility] Start: 04-22-2024 End: 04-22-2024 Patient encounter procedure 04/22/2024 2:40 PM EDT Office Visit [facility] [address] [place] [address] Sina Vanegas MD [address] [place] [address] 40 min physical 1 yr [facility] Medicine [facility] Comment on above: 40 min physical 1 yr Start: 04-22-2024 End: 07-22-2024 Basic metabolic 2000 panel - Serum or Plasma BASIC METABOLIC PANEL Lab Routine ERICKSON (generalized anxiety disorder) Expected: 04/22/2024, Expires: 07/22/2024 [facility] Comment on above: Expected: 04/22/2024, Expires: Start: 04-22-2024 End: 07-22-2024 Lipid 1996 panel - Serum or Plasma LIPID PANEL BASIC Lab Routine Moderate mixed hyperlipidemia not requiring statin therapy Expected: 04/22/2024, Expires: 07/22/2024 [facility] Work Phone: Comment on above: Expected: 04/22/2024, Expires: Start: 04-20-2024 COVID-19 VACCINE (3 - Booster for Pfizer series) COVID-19 VACCINE (3 - Booster for Pfizer series) [facility] Comment on above: Postponed from 01/22/2022 (Declined at t his time) Start: 04-20-2024 COVID-19 VACCINE (3 - Pfizer series) COVID-19 VACCINE (3 - Pfizer series) [facility] Comment on above: Postponed from 01/22/2022 (Declined at t his time) Start: 04-20-2024 HEPATITIS B (1 of 3 - 3-dose series) HEPATITIS B (1 of 3 - 3-dose series) [facility] Comment on above: Postponed from 1973 (Declined at t his time) Start: 04-20-2024 Hepatitis B Vaccine (1 of 3 - 19+ 3-dose series) Hepatitis B Vaccine (1 of 3 - 19+ 3-dose series) [facility] Comment on above: Postponed from 1992 (Declined at t his time) Start: 04-20-2024 Hepatitis B Vaccine (1 of 3 - 3-dose series) Hepatitis B Vaccine (1 of 3 - 3-dose series) [facility] Comment on above: Postponed from 1973 (Declined at t his time) Start: 04-20-2024 HEPATITIS C SCREENING HEPATITIS C SCREENING [facility] Comment on above: Postponed from 1991 (Declined at t his time) Start: 04-20-2024 HIV SCREENING HIV SCREENING [facility] Comment on above: Postponed from 1991 (Declined at t his time) Start: 04-20-2024 HIV screening HIV Screening [facility] Comment on above: Postponed from 1991 (Declined at t his time) Start: 04-20-2024 Urine microalbumin profile [facility] Comment on above: Postponed from 06/13/2019 (Declined at t his time) Start: 2023 Pneumococcal Vaccine: 50+ (1 of 1 - PCV) Pneumococcal Vaccine: 50+ (1 of 1 - PCV) [facility] Start: 2023 Shingrix Vaccine (1 of 2) Shingrix Vaccine (1 of 2) [facility] Start: 09-15-2023 Mammography [facility] Start: 07-14-2023 Covid-19 Vaccine (2022- season) Covid-19 Vaccine (2022- season) [facility] Start: 07-14-2023 Influenza vaccination [facility] Start: 05-26-2023 End: 07-26-2023 Cyclic citrullinated peptide IgG Ab [Units/volume] in Serum or Plasma [facility] Work Phone: Comment on above: Expected: 05/26/2023 (Approximate), Expi res: 07/26/2023 Start: 05-26-2023 End: 07-26-2023 Extractable nuclear Ab panel - Serum [facility] Work Phone: Comment on above: Expected: 05/26/2023 (Approximate), Expi res: 07/26/2023 Start: 05-22-2023 End: 05-22-2024 KISHAN BY IFA SCREEN KISHAN BY IFA SCREEN Lab Routine Arthralgia, unspecified joint Expected: 05/22/2023, Expires: 05/22/2024 [facility] Work Phone: Comment on above: Expected: 05/22/2023, Expires: Start: 05-22-2023 End: 05-22-2024 C reactive protein [Mass/volume] in Serum or Plasma C-REACTIVE PROTEIN (CRP) Lab Routine Arthralgia, unspecified joint Expected: 05/22/2023, Expires: 05/22/2024 [facility] Work Phone: Comment on above: Expected: 05/22/2023, Expires: 4 Start: 05-22-2023 End: 05-22-2024 Erythrocyte sedimentation rate SED RATE WESTERGREN Lab Routine Arthralgia, unspecified joint Expected: 05/22/2023, Expires: 05/22/2024 [facility] Work Phone: Comment on above: Expected: 05/22/2023, Expires: 4 Start: 05-22-2023 End: 05-22-2024 Rheumatoid factor [Units/volume] in Serum or Plasma RHEUMATOID FACTOR BL Lab Routine Arthralgia, unspecified joint Expected: 05/22/2023, Expires: 05/22/2024 [facility] Work Phone: Comment on above: Expected: 05/22/2023, Expires: 4 Start: 04-20-2023 End: 06-20-2023 25-hydroxyvitamin D3 [Mass/volume] in Serum or Plasma VITAMIN D 25 HYDROXY Lab Routine Well adult exam Expected: 04/20/2023, Expires: 06/20/2023 [facility] Work Phone: Comment on above: Expected: 04/20/2023, Expires: 3 Start: 04-20-2023 End: 06-20-2023 CBC W Auto Differential panel - Blood CBC + DIFF Lab Routine Well adult exam Expected: 04/20/2023, Expires: 06/20/2023 [facility] Work Phone: Comment on above: Expected: 04/20/2023, Expires: 3 Start: 04-20-2023 End: 06-20-2023 Comprehensive metabolic 2000 panel - Serum or Plasma COMP METABOLIC PANEL Lab Routine Well adult exam Expected: 04/20/2023, Expires: 06/20/2023 [facility] Work Phone: Comment on above: Expected: 04/20/2023, Expires: 3 Start: 04-20-2023 End: 06-20-2023 Lipid 1996 panel - Serum or Plasma LIPID PANEL BASIC Lab Routine Well adult exam Expected: 04/20/2023, Expires: 06/20/2023 [facility] Work Phone: Comment on above: Expected: 04/20/2023, Expires: 3 Start: 04-20-2023 End: 06-20-2023 Thyrotropin [Units/volume] in Serum or Plasma TSH BLD Lab Routine Panic disorder Weight gain Expected: 04/20/2023, Expires: 06/20/2023 [facility] Work Phone: Comment on above: Expected: 04/20/2023, Expires: 3 Start: 09-13-2022 Mammography MAMMOGRAM [facility] Start: 07-14-2022 Influenza vaccination INFLUENZA (#1) [facility] Start: 04-27-2022 COVID-19 VACCINE (3 - Booster for Pfizer series) COVID-19 VACCINE (3 - Booster for Pfizer series) [facility] Start: 04-21-2022 LIPID SCREEN LIPID SCREEN [facility] Start: 04-19-2022 HPV TESTING HPV TESTING [facility] Start: 04-19-2022 PAP TESTING PAP TESTING [facility] Start: 01-22-2022 COVID-19 VACCINE (3 - Booster for Pfizer series) COVID-19 VACCINE (3 - Booster for Pfizer series) [facility] Start: 06-13-2019 Urine microalbumin profile DTAP,TDAP,TD (2 - Tdap) [facility] Start: 2018 COLOGUARD (FIT-DNA) COLOGUARD (FIT-DNA) [facility] Start: 2018 Colonoscopy COLONOSCOPY [facility] Start: 2018 COLORECTAL CANCER SCREENING COLORECTAL CANCER SCREENING [facility] Start: [address] COLONOGRAPHY [facility] Start: 2018 FECAL OCCULT BLOOD FECAL OCCULT BLOOD [facility] Start: 2018 Screening for malignant neoplasm of colon [facility] Start: 2018 SIGMOIDOSCOPY SIGMOIDOSCOPY [facility] Start: 1991 HEPATITIS C SCREENING HEPATITIS C SCREENING [facility] Start: 1991 HIV SCREENING HIV SCREENING [facility] Start: 1973 HEPATITIS B (1 of 3 - 3-dose series) HEPATITIS B (1 of 3 - 3-dose series) [facility] End: 03-08-2025 Alanine aminotransferase [Enzymatic activity/volume] in Serum or Plasma ALANINE AMINOTRANSFERASE / SGPT Lab Routine Seronegative rheumatoid arthritis (HCC) Every 6 months for 2 Occurrences starting 03/08/2024 until 03/08/2025 [facility] Work Phone: Comment on above: Every 6 months for 2 Occurrences startin g 03/08/2024 until 03/08/2025 End: 03-08-2025 Aspartate aminotransferase [Enzymatic activity/volume] in Serum or Plasma ASPARTATE AMINOTRANSFERASE/SGOT Lab Routine Seronegative rheumatoid arthritis ([facility]) Every 6 months for 2 Occurrences starting 03/08/2024 until 03/08/2025 [facility] Comment on above: Every 6 months for 2 Occurrences startin g 03/08/2024 until 03/08/2025 End: 03-08-2025 C reactive protein [Mass/volume] in Serum or Plasma C-REACTIVE PROTEIN Lab Routine Seronegative rheumatoid arthritis ([facility]) Every 6 months for 2 Occurrences starting 03/08/2024 until 03/08/2025 [facility] Comment on above: Every 6 months for 2 Occurrences startin g 03/08/2024 until 03/08/2025 End: 03-08-2025 CBC W Auto Differential panel - Blood COMPLETE BLOOD COUNT AND DIFFERENTIAL Lab Routine Seronegative rheumatoid arthritis ([facility]) Every 6 months for 2 Occurrences starting 03/08/2024 until 03/08/2025 [facility] Comment on above: Every 6 months for 2 Occurrences startin g 03/08/2024 until 03/08/2025 End: 03-08-2025 CREATININE BLD CREATININE BLD Lab Routine Seronegative rheumatoid arthritis ([facility]) Every 6 months for 2 Occurrences starting 03/08/2024 until 03/08/2025 [facility] Comment on above: Every 6 months for 2 Occurrences startin g 03/08/2024 until 03/08/2025 End: 12-13-2025 DBT Breast - bilateral screening JAMSE SCREENING W [facility] Radiology Routine Encounter for screening mammogram for breast cancer 1 Occurrences starting 11/13/2024 until 12/13/2025 [facility] Work Phone: Comment on above: 1 Occurrences starting 11/13/2024 until 12/13/2025 End: 03-08-2025 Erythrocyte sedimentation rate SEDIMENTATION RATE, WESTERGREN Lab Routine Seronegative rheumatoid arthritis ([facility]) Every 6 months for 2 Occurrences starting 03/08/2024 until 03/08/2025 [facility] Comment on above: Every 6 months for 2 Occurrences startin g 03/08/2024 until 03/08/2025 End: 11-25-2023 JAMES SCREENING JAMES SCREENING Radiology Routine Encounter for screening mammogram for breast cancer 1 Occurrences starting 10/26/2022 until 11/25/2023 [facility] Work Phone: Comment on above: 1 Occurrences starting 10/26/2022 until 11/25/2023 MG Breast - bilatera l Screening [place] End: 03-08-2025 Urea nitrogen [Mass/volume] in Serum or Plasma UREA NITROGEN Lab Routine Seronegative rheumatoid arthritis (HCC) Every 6 months for 2 Occurrences starting 03/08/2024 until 03/08/2025 [facility] Comment on above: Every 6 months for 2 Occurrences startin g 03/08/2024 until 03/08/2025 End: 05-22-2025 XR Ribs - left Views and Chest PA XR RIBS/CHEST 3V AP RIB/OBLS/CXR LEFT Radiology Routine Chest wall pain 1 Occurrences starting 04/22/2024 until 05/22/2025 [facility] Comment on above: 1 Occurrences starting 04/22/2024 until 05/22/2025 XR Ribs - left Views and Chest PA XR RIBS/CHEST 3V AP RIB/OBLS/CXR LEFT Radiology Routine Chest wall pain 04/22/2024 3:12 PM EDT [facility] Immunizations Immunization Date Immunization Notes Care Provider [facility] 09-22-2023 influenza, injectabl e, quadrivalent, preservative free Sina Vanegas MD Work Phone: [facility] 09-22-2023 influenza virus vaccine, unspecified formulation Mariajose Reynoso MD Work Phone: [facility] 08-18-2022 influenza, injectabl e, quadrivalent, preservative free Sina Vanegas MD Work Phone: [facility] 08-18-2022 influenza virus vaccine, unspecified formulation Sina Vanegas MD Work Phone: [facility] 09-14-2021 influenza, injectabl e, quadrivalent, preservative free Sina Vanegas MD Work Phone: [facility] 09-28-2020 Influenza, injectabl e, Madin Macey Canine Kidney, preservative free, quadrivalent Sina Vanegas MD Work Phone: [facility] 06-13-2009 diphtheria, tetanus toxoids and acellular pertussis vaccine Sina Vanegas MD Work Phone: [facility] Work Phone: Payers Date Payer Category Payer Self-pay [id number] 2022 [employer] BLUE CARD PPO OOS [id number] 2022 Unknown [id number] 2019 Unknown MMO MMO [employer] [id number] 2019-Present [phone] [address] [place] [address] PPO [id number] 2019 Unknown [id number] Unknown [id number] Unknown [id number] Unknown [id number] Unknown [id number] Social History Date Type Detail Facility Start: 09-21-2012 End: 12-28-2023 Tobacco smoking status NHIS Never smoked tobacco [facility] Start: 01-31-2022 End: 09-11-2024 Alcohol intake Current drinker of alcohol (finding) [facility] Start: 12-25-2020 End: 04-14-2023 History SDOH Alcohol Frequency 3 [facility] Start: 12-25-2020 End: 04-14-2023 History SDOH Alcohol Std Drinks 1 [facility] Start: 09-21-2012 History SDOH Alcohol Comment Occasionally [facility] Start: 12-25-2020 End: 04-14-2023 History SDOH Social Connections Phone 5 [facility] Start: 12-25-2020 End: 04-14-2023 History SDOH Social Connections Get Together 2 [facility] Start: 12-24-2020 Education 18 [facility] Start: 1975 Sex Assigned At Female [facility] Start: 01-21-2022 End: 01-31-2022 Exposure to SARS-CoV-2 (event) Not sure [facility] Start: 12-31-2021 End: 03-06-2023 Tobacco smoking status NHIS Unknown if ever smoked [place] Start: 03-14-2022 End: 04-14-2023 History SDOH Alcohol Frequency 4 [facility] Start: 09-21-2012 End: 04-20-2023 Tobacco use and exposure Smokeless tobacco non-user [facility] Work Phone: Start: 04-14-2023 End: 04-20-2024 History of Social function [facility] Start: 04-14-2023 End: 04-20-2024 Social connection and isolation panel [facility] Do you belong to any clubs or organizations such as jainism groups, unions, fraternal or athletic groups, or school groups? Yes [facility] Are you now , , , , never or living with a partner? [facility] How often to you hav e a drink containing alcohol? 2-3 time sa week [facility] How many standard dr inks containing alcohol do you have on a typical day? 3 or 4 [facility] How often do you hav e 6 or more drinks on 1 occasion? Less than monthly [facility] How hard is it for y ou to pay for the very basics like food, housing, medical care, and heating Not hard at all [facility] Do you feel stress - tense, restless, nervous, or anxious, or unable to sleep at night because your mind is troubled all the time - these days [OSQ] Not at all [facility] (I/We) worried andrei er (my/our) food would run out before (I/we) got money to buy more. Never true [facility] In the past 12 month s, was there a time when you were not able to pay the mortgage or rent on time? No [facility] Start: 02-16-2021 Gender identity Identifies as female gender (finding) [facility] How often do you hav e 6 or more drinks on 1 occasion? Weekly [facility] How hard is it for y ou to pay for the very basics like food, housing, medical care, and heating Not very hard [facility] Do you feel stress - tense, restless, nervous, or anxious, or unable to sleep at night because your mind is troubled all the time - these days [OSQ] Only a little [facility] Functional Status Date Assessment Result Facility 01-01-2015 Are you deaf, or do you have serious difficulty hearing No 01/01/2015 3:12 PM Karina Rich MA No [facility] 01-01-2015 Are you blind, or do you have serious difficulty seeing, even when wearing glasses No 01/01/2015 3:12 PM Karina Rich MA No [facility] 01-01-2015 Do you have serious difficulty walking or climbing stairs No 01/01/2015 3:12 PM Karina Rich MA No [facility] 01-01-2015 Do you have difficul ty dressing or bathing No 01/01/2015 3:12 PM Karina Rich MA No [facility] 01-01-2015 Because of a physica l, mental, or emotional condition, do you have difficulty doing errands alone such as visiting a physician's office or shopping No 01/01/2015 3:12 PM Karina Rich MA No [facility] Mental Status Date Assessment Result Facility 01-01-2015 Because of a physica l, mental, or emotional condition, do you have serious difficulty concentrating, remembering, or making decisions No 01/01/2015 3:12 PM Karina Rich MA No [facility] Clinical Notes 01-31-2022 to 07-02-2025 Note Date & Type Note Facility 07-02-2025 Progress note [facility] 07-02-2025 Progress note Note Date/Time July 02, 2025 2:58pm [facility] [address], [address] [place] [address] OFFICE VISIT Date of Service: 07/02/25 MR#: [id number] Acct: [id number] Name: ALONA RODRIGEZ Rep #: [id number] : 1975 Provider: LARRY Cesar Age/Sex: 49/F [place] [facility] [place]: Signed Intake Vital Signs 05/08/24 13:31 07/02/25 14:37 07/02/25 14:41 Height 5 ft 3 in 5 ft 3 in 5 ft 3 in Weight: 174 lb BMI 30.8 BP 114/80 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) Chief Complaint: Annual 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 Required: No Is patient in pain?: No Allergies No Known Allergies Allergy (Verified 07/02/25 14:49) Medications ?Medication ?Instructions ?Recorded ?Confirmed ?Type omeprazole 20 mg capsule,delayed 20 mg PO DAILY 07/02/25 History release sertraline 50 mg tablet (Zoloft) 100 mg PO DAILY 03/0607/02/25 History etonogestrel 0.12 mg-ethinyl 1 vag ring vaginal Q4W #3 ea 05/08/24 07/02/25 Rx estradiol 0.015 mg/24 hr vaginal ring (NuvaRing) apremilast 20 mg tablet (Otezla) mg PO 07/02/25 History Is last menstrual period known: No Post menopausal: No Patient : No : No PFSH Medical History child Knee pain Shoulder pain Arthritis Surgical History H/O dilation and curettage Social History Smoking Status: Never smoker alcohol intake: current alcohol intake frequency: a few times a month substance use type: does not use caffeine: Yes what type of physical activity do you participate in: none seatbelt use: always do you feel safe at home: Yes additional social history: -[employer]- [employer] 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 Date Name GA/Weeks Outcome Route Bth Weight Gen Labor Lgth Anesthesia Del Locatn Provider FOB Unknown Melany-2000 Unknown Mageu-2001 HPI Encounter for routine gynecological examination Details: ALONA RODRIGEZ is a 49 year old who presents for annual exam. Had normal US in February due to lower right pelvic pain. Still happening off and on. No menses with nuvaring. Last PAP: 2022 History of abnormal PAP: no Last mammogram: 09/2024 History of abnormal mammogram: no Colon cancer screenin Other preventative health care screenings: [place] [facility]roductive History Questions: metrorrhagia: No, sexually active: Yes, dyspareunia: No and PCB: No ROS Const Constitutional: Denies fatigue, weight gain or weight loss Cardio Card: Denies chest pain Resp Resp: Denies cough or dyspnea on exertion GI GI: Denies abdominal pain, bloating, change in stool character, constipation or vomiting : Reports as per HPI; Denies difficulty voiding, pelvic pain, urinary frequency, urinary incontinence,urinary urgency, vaginal discharge or vaginal pruritus Exam Const General: cooperative, healthy appearing, no acute distress and well developed Orientation: alert, oriented to person and oriented to place HENMT Head: normal to inspection Neck Neck: normal visual inspection Thyroid: thyroid normal Lymphatic: no lymphadenopathy noted Chest Breast inspection: normal inspection of the breasts and normal inspection of theaxillae Breast palpation: normal palpation of the breasts, normal palpation of the axillae and no axillary lymphadenopathy Resp Effort & Inspection: normal respiratory effort GI Palpation: soft, no masses and nontender Rectal Exam: deferred External Female Exam: normal external appearance and normal appearance of the urethra Urethra: normal appearance of the urethra and normal palpation Speculum Exam - Vagina: normal appearance of the vagina and normal vaginal discharge Speculum Exam - Cervix: normal appearance of the cervix Bimanual Exam- Vagina & Uterus: normal bimanual exam, uterine size normal, uterine shape normal and non-tender Bimanual Exam- Adnexa, other: normal adnexae, no masses, normal and non-tender Pelvic Support: normal Neuro General: patient alert and patient oriented x3 Psych Affect: normal affect Coding Level of Care Code Off vis,est,prev 40-64yrs Diagnoses Encounter for gynecological examination with abnormal finding Z01.411 Gynecological examination findings: abnormal findings PRESENT Pelvic pain R10.2 Assessment and Plan Assessment and Plan (1) Encounter for routine gynecological examination: Qualifiers: Gynecological examination findings: abnormal findings PRESENT QualifiedCode(s): Z01.411 - Encounter for gynecological examination (general) (routine) with abnormal findings (2) Pelvic pain: Status: Acute Comment: [facility] 02/2025 Orders: Orders SCRN MAMM (CAD)W/CLAUDINE BILAT Today Z12.39 - Encounter for other screening for malignant neoplasm of breast Plan Completed breast and pelvic exam Reviewed diet and exercise Pap 2022 Mammogram ordered breast self exam encouraged monthly Stop nuvaring after this cycle. Will call if pain becomes persistent on AUB occurs. Also consider seeing PCP to rule out other etiology for pain Colonoscopy 2023 RTO 1 year, prn with problems Armida Cesar LINE MANAGER 07/02/25 [id number] <Electronically signed by Armida rios PHOTOGRAPHER APPRENTICE PHOTOGRAPHER APPRENTICE-C> Date _ Armida Cesar PHOTOGRAPHER APPRENTICE PHOTOGRAPHER APPRENTICE-C Cosigner Signature: Date (if applicable) CC: ~ [facility] Work Phone: [phone] Telephone encounter Note* Telephone Encounter - Rochelle Price - 04/10/2025 1:33 PM EDT Prescription Refill Information The patient has been identified by name and date of : Yes Caregiver verified no other encounters exist for this prescription request: Yes Caregiver confirmed with patient/requestor that no other refills are due, in the near future, with this provider at this time: Yes The last office visit in the department: 04-22-24 Does the patient have a future office visit with this provider/department: No Requested Prescriptions Pending Prescriptions Disp Refills omeprazole (PRILOSEC) 20 mg capsule 90 capsule 3 Sig: Take 1 capsule by mouth once daily. sertraline (ZOLOFT) 100 mg tablet 90 tablet 3 Sig: Take 1 tablet by mouth once daily. Rochelle Price April 10, 2025 1:34 PM [facility]05-29-2025 Miscellaneous Notes* Telephone Encounter - Rochelle Price - 04/10/2025 1:33 PM EDT Prescription Refill Information The patient has been identified by name and date of : Yes Caregiver verified no other encounters exist for this prescription request: Yes Caregiver confirmed with patient/requestor that no other refills are due, in the near future, with this provider at this time: Yes The last office visit in the department: 04-22-24 Does the patient have a future office visit with this provider/department: No Requested Prescriptions Pending Prescriptions Disp Refills omeprazole (PRILOSEC) 20 mg capsule 90 capsule 3 Sig: Take 1 capsule by mouth once daily. sertraline (ZOLOFT) 100 mg tablet 90 tablet 3 Sig: Take 1 tablet by mouth once daily. Rochelle Price April 10, 2025 1:34 PM documented in [facility] encounterC[facility] NoteHNO ID: [id number] Author: MARIAJOSE REYNOSO MD Service: ? Author Type: Physician Type: Progress Notes Filed: 03/07/2025 16:11 Note Text: VIRTUAL VISIT PROGRESS NOTE This is a virtual visit using [employer] Zoom Video Visit. It required patient-provider interaction for the medical decision making as documented below. I have communicated my name and active licensure. The patient's identity and physical location were verified at the time of this visit. Either the patient or their legal patient financial representative has been informed of the risks and benefits of -- and alternatives to -- treatment through a remote evaluation and consents to proceed with the evaluation remotely. Mariajose Reynoso MD Alona Rodrigez March 07, 2025 Referring Provider: PCP: Sina Vanegas MD Chief Complaint: No chief complaint on file. Background Rheumatologic History: Ms. Rodrigez reports that about 10 years ago she was diagnosed with inflammatory arthritis. She reported at the time, experiencing significant bilateral knee pain and swelling, as well as intermittent hip tightness. Labs were checked and at that time, CRP/ESR were elevated, but KISHAN and RF were negative. She was told that if her symptoms worsened, she could be seen by a dermatology physician, however her symptoms were generally manageable so she did not present. About two years ago, she developed progressively worsening joint disease. She endorses joint pain, swelling, tightness of her shoulders, elbows, wrists, fingers, knees, and toes. The worst joints are her toes and fingers. She states that her joint pain/stiffness migrates from one joint to another but her toes are basically always stiff. She endorses morning stiffness that lasts at least 30-60 minutes, improves with activity. She denies any redness or erythema to her joints. Sometimes the pain is so severe that is limits her ability to walk/complete ADLs. This was the case about two weeks ago, when she had severe joint stiffness and pain and could not walk. Her PCP prescribed a course of Meloxicam (that she began 4 days ago) and checked bloodwork. KISHAN positive, RF negative, ESR/CRP elevated. She reports that she has never taken prednisone for joint issues, has never tried plaquenil. Usually, her joint symptoms are managed with heat/ice or the occasional ibuprofen. She otherwise denies any rashes, photosensitivity, eye pain, eye redness, changes to vision, mouth ulcers, dysphagia, odoynphoagia, shortness of breath, pleuritic pain, chest pain, blood in stool, melena, weakness, hair loss, nail changes, Raynaud's phenomenon, hypermobility. She describes her energy levels as alright. Family hx: - cousin w/ lupus - otherwise none I first saw her 05/26/23 47 yo female present with polyarthralgia. Characteristics of her joint pain sounds inflammatory to me. Exam show swelling and tenderness in several joints especially in her hands. High suspicion for rheumatoid. We will obtain a comprehensive set of serologies and x-rays. F/U 06/05/23 CCP neg ABBY neg Responding quite well to meloxicam. Her pain and stiffness are minimal now. I think that seronegative rheumatoid arthritis is the most likely explanation for her arthritis based on the pattern of her arthritis. Elevated inflammatory markers and responsiveness to meloxicam are very suggestive of inflammatory arthritis. We will start her on hydroxychloroquine given its favorable safety profile. Side effects of HCQ, especially HCQ maculopathy, were discussed. The patient will need regular eye exam. I will recommend her to keep taking meloxicam every day for 1 month and then downgrade it to as needed. F/U 09/06/23 Doing better on Plaquenil. She is able to stop meloxicam July 14. Since then, she describes 2 minor flare in her knees. No pain or swelling today. Continue hydroxychloroquine monotherapy. F/U 03/08/24 I think she is in remission. Hydroxychloroquine monotherapy is working well. I will continue it. She will do eye exam soon. F/U 09/11/24 Few minor flare that resolved by itself since she last saw me. 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 They are treating her with topical medication. She is due to see them again in 2 months. They mentioned that they may want to start her on Otezla. Labs ok Since she is doing well from inflammatory arthritis standpoint, I see no reason to switch her Plaquenil to other medication at this moment. Her last eye exam was this summer. It was normal. She will continue to do eye exam every year. However, if dermatology wants to prescribe her something else for her cutaneous psoriasis, I would be fine with that. Most of the standard treatment for cutaneous psoriasis it would be effective for inflammatory arthritis too. MyChart 10/29/24 Dermatology decided to start Otezla. I stop Plaquenil. Interim History: Patient returns for follow up, l (more content not included)... [facility]01-01-2025 NotePatient Outreach (INTMMN) ALONA RODRIGEZ ([id number]) 1975 F Date Time Provider Department 11/13/24 SINA VANEGAS INTMMEmily During your visit today, we recorded the following information about you: Allergies As of Date: 11/13/2024 (No Known Allergies) Date Reviewed: 09/11/2024 Reviewed by: Madelaine Oliver MA - Fully Assessed Visit Diagnosis:Encounter for screening mammogram for breast cancer [Z12.31] Order(s):JAMES SCREENING W CLAUDINE [[id number]] Order #: [id number] FUTURE Prescriptions as of 11/18/2024 - hydrOXYchloroQUINE (PLAQUENIL) 200 mg tablet Take 1 tablet by mouth once daily. - sertraline (ZOLOFT) 100 mg tablet Take 1 tablet by mouth once daily. - omeprazole (PRILOSEC) 20 mg capsule Take 1 capsule by mouth once daily. - Etonogestrel-Ethinyl Estradiol (NUVARING) 0.12-0.015 mg/24 hr vaginal ring Insert vaginally for 3 weeks then replace Problem List As Of Date 11/13/2024 Noted Resolved DEPRESSIVE DISORDER NEC [F32.89] 02/18/2008 Onychomycosis [B35.1] 03/05/2010 Swelling of Right Knee Joint [M25.461] 03/05/2010 Neoplasm of uncertain behavior of skin [D48.5] 04/28/2011 11/27/2023 Panic disorder [F41.0] 11/22/2017 Acute bronchitis [J20.9] 11/27/2023 11/27/2023 Diagnosed: 11/27/2023 Elevated blood pressure reading without diagnos*11/27/2023 Diagnosed: 11/27/2023 Seronegative rheumatoid arthritis (HCC) [M06.00]11/27/2023 Screening for colon cancer [Z12.11] 01/05/2024 Encounter Status:Closed by EPIC, PRODUSER on 11/18/24[facility] 09-11-2024 History of Present illness Narrative* Mariajose Reynoso MD - 09/11/2024 2:00 PM EDT Mariajose Reynoso MD Alona Rodrigez September 10, 2024 Referring Provider: PCP: Sina Vanegas MD Chief Complaint: Patient presents with: Joint Pain Background Rheumatologic History: Ms. Rodrigez reports that about 10 years ago she was diagnosed with inflammatory arthritis. She reported at the time, experiencing significant bilateral knee pain and swelling, as well as intermittent hip tightness. Labs were checked and at that time, CRP/ESR were elevated, but KISHAN and RF were neg ative. She was told that if her symptoms worsened, she could be seen by a dermatology physician, however her symptoms were generally manageable so she did not present. About two years ago, she developed progressively worsening joint disease. She endorses joint pain, swelling, tightness of her shoulders, elbows, wrists, fingers, knees, and toes. The worst joints are her toes and fingers. She states that her joint pain/stiffness migrates from one joint to anotherbut her toes are basically always stiff. She endorses morning stiffness that lasts at least 30- 60 minutes, improves with activity. She denies any redness or erythema to her joints. Sometimes the painis so severe that is limits her ability to walk/complete ADLs. This was the case about two weeks ago, when she had severe joint stiffness and pain and could not walk. Her PCP prescribed a course of Me loxicam (that she began 4 days ago) and checked bloodwork. KISHAN positive, RF negative, ESR/CRP elevated. She reports that she has never taken prednisone for joint issues, has never tried plaquenil. Usually, her joint symptoms are managed with heat/ice or the occasional ibuprofen. She otherwise denies any rashes, photosensitivity, eye pain, eye redness, changes to vision, mouth ulcers, dysphagia, odoynphoagia, shortness of breath, pleuritic pain, chest pain, blood in stool, melena, weakness, hair loss, nail changes, Raynaud's phenomenon, hypermobility. She describes her energy levels as alright. Family hx: - cousin w/ lupus - otherwise none I first saw her 05/26/23 47 yo female present with polyarthralgia. Characteristics of her joint pain sounds inflammatory to me. Exam show swelling and tenderness in several joints especially in her hands. High suspicion for rheumatoid. We will obtain a comprehensive set of serologies and x-rays. F/U 06/05/23 CCP neg ABBY neg Responding quite well to meloxicam. Her pain and stiffness are minimal now. I think that seronegative rheumatoid arthritis is the most likely explanation for her arthritis based on the pattern of her arthritis. Elevated inflammatory markers and responsiveness to meloxicam are very suggestive of inflammatory arthritis. We will start her on hydroxychloroquine given its favorable safety profile. Side effects of HCQ, especially HCQ maculopathy, were discussed. The patient will need regular eye exam. I will recommend her to keep taking meloxicam every day for 1 month and then downgrade it to as needed. F/U 09/06/23 Doing better on Plaquenil. She is able to stop meloxicam July 14. Since then, she describes 2 minor flare in her knees. No pain or swelling today. Continue hydroxychloroquine monotherapy. F/U 03/08/24 I think she is in remission. Hydroxychloroquine monotherapy is working well. I will continue it. She will do eye exam soon. Interim History: Patient returns for follow up, last visit 09/06/2023. Few minor flare that resolved by itself since she last saw me. 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 They are treating her with topical medication. She is due to see them again in 2 months. They mentioned that they may want to start her on Otezla. Labs ok PAST MEDICAL HISTORY Diagnosis Date Abnormal Pap smear and cervical HPV (human papillomavirus) colp 05/2010 BRANDI 1 Arthritis Depression Hx of colonoscopy 01/05/[address] Givens PAST SURGICAL HISTORY Procedure Laterality Date DILATION & CURETTAGE DX&/THER NONOBSTETRIC EGD 02/01/2021 SKIN BIOPSY HX Social History Tobacco Use Smoking status: Never Smokeless tobacco: Never Substance Use Topics Alcohol use: Yes Comment: Occasionally Drug use: No Health Maintenance Covid-19 Vaccine( season) due on 07/14/2024 Mammogram Screening due on 10/10/2024 Immunization History Administered Date(s) Administered COVID-19 original vaccine, age 12+ yr, monovalent ([employer] - PURPLE TOP) 12/23/2020 11/27/2021 diphtheria tetanus pertussis (DTaP) vaccine, pediatric (INFANRIX) 06/13/2009 influenza (IIV4) vaccine, age 6 mo - 64 yr, quadrivalent, PF (AFLURIA, FLUARIX, FLULAVAL, FLUZONE) 09/14/2021 08/18/2022 09/22/2023 influenza (ccIIV4) vaccine, age 6+ mo, quadrivalent, PF (FLUCELVAX) 09/28/2020 Current Outpatient Medications Medication Sig Dispense Refill sertraline (ZOLOFT) 100 mg tablet Take 1 tablet by mouth once daily. 90 tablet 3 omeprazole (PRILOSEC) 20 mg capsule Take 1 capsule by mouth once daily. 90 capsule 3 Etonogestrel-Ethinyl Estradiol (NUVARING) 0.12-0.015 mg/24 hr vaginal ring Insert vaginally for 3 weeks then replace 2 Each 9 hydrOXYchloroQUINE (PLAQUENIL) 200 mg tablet Take 1 tablet by mouth once daily. 90 tablet 3 No current facility-administered medications for this visit. ALLERGIES No Known Allergies Physical Exam: BP 129/81 Pulse 85 Temp (Src) 97.4 (Temporal) Ht 5' 3 (1.60m) Wt 171 lb 11.8 oz (77.9kg) LMP 04/06/2016 BMI 30.43 kg/(m^2). General: Not pale, no jaundice, not in acute distress Head: Normocephalic, atraumatic Eyes: No redeye, no discharge ENT: No oral/nasal ulcer Neck: No lymphadenopathy Lungs: Normal breath sound, no adventitious sound Abdomen: Soft, not tender CV: Normal S1 S2, no murmur, no rub, pulse regular Skin: +pso rash on her legs, no malar rash, no telangiectasia, no pitting nail/onycholysis, no gross periungual telangiectasia Neuro: Grossly intact, motor power 5 all Joints LEFT Shoulder Full ROM, not tender Elbow Full ROM, not tender, not swollen Wrist Full ROM, not tender, not swollen 2nd MCP Not tender, not swollen 3rd MCP Not tender, not swollen 4th MCP Not tender, not swollen 5th MCP Not tender, not swollen 1st IP Not tender, not swollen 2nd PIP Not tender, not swollen 3rd PIP Not tender, not swollen 4th PIP Not tender, not swollen 5th PIP Not tender, not swollen 2nd DIP Not tender, not swollen 3rd DIP Not tender, not swollen 4th DIP Not tender, not swollen 5th DIP Not tender, not swollen Hip Full ROM Knee Full ROM, not tender, no effusion Ankle Not tender, not swollen Squeezing test Negative RIGHT Shoulder Full ROM, not tender Elbow Full ROM, not tender, not swollen Wrist Full ROM, not tender, not swollen 2nd MCP Not tender, not swollen 3rd MCP Not tender, not swollen 4th MCP Not tender, not swollen 5th MCP Not tender, not swollen 1st IP Not tender, not swollen 2nd PIP Not tender, not swollen 3rd PIP Not tender, not swollen 4th PIP Not tender, not swollen 5th PIP Not tender, not swollen 2nd DIP Not tender, not swollen 3rd DIP Not tender, not swollen 4th DIP Not tender, not swollen 5th DIP Not tender, not swollen Hip Full ROM Knee Full ROM, not tender, no effusion Ankle Not tender, not swollen Squeezing test Negative Impression: Seronegative inflammatory arthritis/psoriatic arthritis Cutaneous psoriasis Long-term use of hydroxychloroquine She is in remission from inflammatory arthritis standpoint although there is still ongoing active cutaneous lesion. Recommendations/Plan Plan discussed with patient Since she is doing well from inflammatory arthritis standpoint, I see no reason to switch her Plaquenil to other medication at this moment. Her last eye exam was this summer. It was normal. She will continue to do eye exam every year. However, if dermatology wants to prescribe her something else for her cutaneous psoriasis, I would be fine with that. Most of the standard treatment for cutaneous psoriasis it would be effective for inflammatory arthritis too. Return Visit: Follow up zoom call March 07 at 4 PM I spent a total of 40 minutes on the date of the service which included preparing to see the patient, [id number] patient care, completing clinical documentation, obtaining and/or reviewing separately obtained history, performing a medically appropriate examination, counseling and educating the pat ient/family/caregiver, and ordering medications, tests, or procedures. Mariajose Reynoso MD Referring Provider: PCP: Sina Vanegas MD Answers submitted by the patient for this visit: Review of Systems Rheumatology (Submitted on 09/10/2024) Fever : No Recent unintentional weight change: No Eye pain: No Eye redness: No Vision Disturbance: No Eye Dryness: No Nosebleeds: No Sores in your mouth: No Trouble Swallowing: No Dry Mouth: No Chest pain: No Leg Swelling: No A cough: No Shortness of breath: No Pain with breathing: No Heartburn: No Abdominal pain: No Diarrhea: Yes Black tarry stools: No Blood in urine: No Pain or burning with urination: No Joint pain or stiffness: Yes Muscle weakness: No Muscle aches: No Joint swelling: Yes Morning Stiffness in Joints: Yes A rash: Yes Do you have sun sensitive rashes?: No Skin Color Changes: No Hair Loss: No Nail Changes: No Headaches: No Numbness: Yes Memory Loss: No Swollen Glands: No documented in this encounterC[facility] NoteHNO ID: [id number] Author: MARIAJOSE REYNOSO MD Service: ? Author Type: Physician Type: Progress Notes Filed: 09/11/2024 13:55 Note Text: Mariajose Reynoso MD Alona Rodrigez September 10, 2024 Referring Provider: PCP: Sina Vanegas MD Chief Complaint: Patient presents with: Joint Pain Background Rheumatologic History: Ms. Rodrigez reports that about 10 years ago she was diagnosed with inflammatory arthritis. She reported at the time, experiencing significant bilateral knee pain and swelling, as well as intermittent hip tightness. Labs were checked and at that time, CRP/ESR were elevated, but KISHAN and RF were negative. She was told that if her symptoms worsened, she could be seen by a dermatology physician, however her symptoms were generally manageable so she did not present. About two years ago, she developed progressively worsening joint disease. She endorses joint pain, swelling, tightness of her shoulders, elbows, wrists, fingers, knees, and toes. The worst joints are her toes and fingers. She states that her joint pain/stiffness migrates from one joint to another but her toes are basically always stiff. She endorses morning stiffness that lasts at least 30-60 minutes, improves with activity. She denies any redness or erythema to her joints. Sometimes the pain is so severe that is limits her ability to walk/complete ADLs. This was the case about two weeks ago, when she had severe joint stiffness and pain and could not walk. Her PCP prescribed a course of Meloxicam (that she began 4 days ago) and checked bloodwork. KISHAN positive, RF negative, ESR/CRP elevated. She reports that she has never taken prednisone for joint issues, has never tried plaquenil. Usually, her joint symptoms are managed with heat/ice or the occasional ibuprofen. She otherwise denies any rashes, photosensitivity, eye pain, eye redness, changes to vision, mouth ulcers, dysphagia, odoynphoagia, shortness of breath, pleuritic pain, chest pain, blood in stool, melena, weakness, hair loss, nail changes, Raynaud's phenomenon, hypermobility. She describes her energy levels as alright. Family hx: - cousin w/ lupus - otherwise none I first saw her 05/26/23 47 yo female present with polyarthralgia. Characteristics of her joint pain sounds inflammatory to me. Exam show swelling and tenderness in several joints especially in her hands. High suspicion for rheumatoid. We will obtain a comprehensive set of serologies and x-rays. F/U 06/05/23 CCP neg ABBY neg Responding quite well to meloxicam. Her pain and stiffness are minimal now. I think that seronegative rheumatoid arthritis is the most likely explanation for her arthritis based on the pattern of her arthritis. Elevated inflammatory markers and responsiveness to meloxicam are very suggestive of inflammatory arthritis. We will start her on hydroxychloroquine given its favorable safety profile. Side effects of HCQ, especially HCQ maculopathy, were discussed. The patient will need regular eye exam. I will recommend her to keep taking meloxicam every day for 1 month and then downgrade it to as needed. F/U 09/06/23 Doing better on Plaquenil. She is able to stop meloxicam July 14. Since then, she describes 2 minor flare in her knees. No pain or swelling today. Continue hydroxychloroquine monotherapy. F/U 03/08/24 I think she is in remission. Hydroxychloroquine monotherapy is working well. I will continue it. She will do eye exam soon. Interim History: Patient returns for follow up, last visit 09/06/2023. Few minor flare that resolved by itself since she last saw me. 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 They are treating her with topical medication. She is due to see them again in 2 months. They mentioned that they may want to start her on Otezla. Labs ok PAST MEDICAL HISTORY Diagnosis Date Abnormal Pap smear and cervical HPV (human papillomavirus) colp 05/2010 BRANDI 1 Arthritis Depression Hx of colonoscopy 01/05/[address] Givens PAST SURGICAL HISTORY Procedure Laterality Date DILATION AND CURETTAGE DXAND/THER NONOBSTETRIC EGD 02/01/2021 SKIN BIOPSY HX Social History Tobacco Use Smoking status: Never Smokeless tobacco: Never Substance Use Topics Alcohol use: Yes Comment: Occasionally Drug use: No Health Maintenance Covid-19 Vaccine( season) due on 07/14/2024 Mammogram Screening due on 10/10/2024 Immunization History Administered Date(s) Administered COVID-19 original vaccine, age 12+ yr, monovalent (PFIZER-BIONTSouthern Swim - PURPLE TOP) 12/23/2020 11/27/2021 diphtheria tetanus pertussis (DTaP) vaccine, pediatric (INFANRIX) 06/13/2009 influenza (IIV4) vaccine, age 6 mo - 64 yr, quadrivalent, PF (AFLURIA, FLUARIX, FLULAVAL, FLUZONE) 09/14/2021 08/18/2022 09/22/2023 influenza (ccIIV4) vaccine, age 6+ mo, quadrivalent, PF (FLUCELVAX) 09/13 (more content not included)...[facility]10-30-2024 Instructions* Patient Instructions* Mariajose Reynoso MD - 09/11/2024 1:45 PM EDT Follow up zoom call March 07 at 4 PM Continue Plaquenil for now Send me an update after you see dermatology documented in this encounterC[facility]07[facility] Telephone encounter Note * Telephone Encounter - Vianney Bass RN - 05/29/2024 10:02 AM EDT Images from the original note were not included. Most recent Rheumatology visit: 03/08/2024 (with Mariajose Reynoso) Rheumatology Care Team: None on file Recent Office Visits - This Specialty 03/08/2024 Seronegative rheumatoid arthritis (HCC) Rheumatology Mariajose Reynoso MD 09/06/2023 Seronegative rheumatoid arthritis (HCC) Rheumatology Mariajose Reynoso MD 06/05/2023 Seronegative rheumatoid arthritis (HCC) Rheumatology Mariajose Reynoso MD Upcoming Rheumatology Appointments - Next 365 Days Visit Type Date Time Department [facility] 09[facility]11[facility] 2[facility] Last Ophthalmology Check for Plaquenil (Hydroxychloroquine) Last OCT Macula Exam No resulted procedures found. Last Visual Field Exam No resulted procedures found. CBC: Latest Ref Rng & Units 09/06/2023 01/15/2024 CBC WBC 3.70 - 11.00 k/uL 6.29 5.08 Hemoglobin 11.5 - 15.5 g/dL 12.4 12.1 Hematocrit 36.0 - 46.0 % 37.8 36.0 Platelet Count 150 - 400 k/uL 278 271 Abs Neut (ANC) 1.45 - 7.50 k/uL 4.42 3.70 Abs Lymph 1.00 - 4.00 k/uL 1.29 0.99 Vitamin D: None on file in the last 6 months LFT: Latest Ref Rng & Units 01/15/2024 04/29/2024 CMP Sodium 136 - 144 mmol/L 138 Potassium 3.7 - 5.1 mmol/L 4.0 Chloride 98 - 107 mmol/L 105 CO2 22 - 30 mmol/L 23 Glucose 74 - 99 mg/dL 94 BUN 7 - 21 mg/dL 18 16 Creatinine 0.58 - 0.96 mg/dL 0.82 0.82 Calcium 8.5 - 10.2 mg/dL 9.0 AST 13 - 35 U/L 10 ALT 7 - 38 U/L 9 Hepatic Function: Creatinine: Latest Ref Rng & Units 01/15/2024 04/29/2024 Creatinine Creatinine 0.58 - 0.96 mg/dL 0.82 0.82 ESR/CRP: Latest Ref Rng & Units 09/06/2023 01/15/2024 ESR, WSR WSR 0 - 20 mm/hr 30 40 Latest Ref Rng & Units 09/06/2023 01/15/2024 CRP CRP <0.9 mg/dL 1.8 1.3 Uric Acid: None on file in the last 6 months Open Standing (Multiple Instance) Lab Orders Remain Interval Expires Ordered Last Rel. ALT/SGPT [SQALT] 3/4 Every 3 months 06/04/24 06/05/23 01/15/24 Auth. provider: Mariajose Reynoso MD Assoc. diagnoses: Seronegative rheumatoid arthritis (HCC) AST/SGOT BLD [SQAST] 3/4 Every 3 months 06/04/24 06/05/23 01/15/24 Auth. provider: Mariajose Reynoso MD Assoc. diagnoses: Seronegative rheumatoid arthritis (HCC) BUN BLOOD [SQBUN] 3/4 Every 3 months 06/04/24 06/05/23 01/15/24 Auth. provider: Mariajose Reynoso MD Assoc. diagnoses: Seronegative rheumatoid arthritis (HCC) C-REACTIVE PROTEIN (CRP) [SQCRP] 3/4 Every 3 months 06/04/24 06/05/23 01/15/24 Auth. provider: Mariajose Reynoso MD Assoc. diagnoses: Seronegative rheumatoid arthritis (HCC) CREATININE BLD [SQCRET] 3/4 Every 3 months 06/04/24 06/05/23 01/15/24 Auth. provider: Mariajose Reynoso MD Assoc. diagnoses: Seronegative rheumatoid arthritis (HCC) SED RATE WESTERGREN [SQWSR] 3/4 Every 3 months 06/04/24 06/05/23 01/15/24 Auth. provider: Mariajose Reynoso MD Assoc. diagnoses: Seronegative rheumatoid arthritis (HCC) CBC + DIFF [SQCBCDIF] 3/4 Every 3 months 06/04/24 06/05/23 01/15/24 Auth. provider: Mariajose Reynoso MD Assoc. diagnoses: Seronegative rheumatoid arthritis (HCC) ALANINE AMINOTRANSFERASE / SGPT [SQALT] 2/2 Every 6 months 03/08/25 03/08/24 Auth. provider: Mariajose Reynoso MD Assoc. diagnoses: Seronegative rheumatoid arthritis (HCC) ASPARTATE AMINOTRANSFERASE/SGOT [SQAST] 2/2 Every 6 months 03/08/25 03/08/24 Auth. provider: Mariajose Reynoso MD Assoc. diagnoses: Seronegative rheumatoid arthritis (HCC) C-REACTIVE PROTEIN [SQCRP] 2/2 Every 6 months 03/08/25 03/08/24 Auth. provider: Mariajose Reynoso MD Assoc. diagnoses: Seronegative rheumatoid arthritis (HCC) SEDIMENTATION RATE, WESTERGREN [SQWSR] 2/2 Every 6 months 03/08/25 03/08/24 Auth. provider: Mariajose Reynoso MD Assoc. diagnoses: Seronegative rheumatoid arthritis (HCC) CREATININE BLD [SQCRET] 2/2 Every 6 months 03/08/25 03/08/24 Auth. provider: Mariajose Reynoso MD Assoc. diagnoses: Seronegative rheumatoid arthritis (HCC) COMPLETE BLOOD COUNT AND DIFFERENTIAL [SQCBCDIF] 2/2 Every 6 months 03/08/25 03/08/24 Auth. provider: Mariajose Reynoso MD Assoc. diagnoses: Seronegative rheumatoid arthritis (HCC) UREA NITROGEN [SQBUN] 2/2 Every 6 months 03/08/25 03/08/24 Auth. provider: Mariajose Reynoso MD Assoc. diagnoses: Seronegative rheumatoid arthritis (HCC) Open Future (Single Instance) Lab Orders Yumiko Bass RN [facility]07-17-2024 Miscellaneous Notes* Telephone Encounter - Vianney Bass RN - 05/29/2024 10:02 AM EDT Images from the original note were not included. Most recent Rheumatology visit: 03/08/2024 (with Patompong Ungprasert) Rheumatology Care Team: None on file Recent Office Visits - This Specialty 03/08/2024 Seronegative rheumatoid arthritis (HCC) Rheumatology Mariajose Reynoso MD 09/06/2023 Seronegative rheumatoid arthritis (HCC) Rheumatology Mariajose Reynoso MD 06/05/2023 Seronegative rheumatoid arthritis (HCC) Rheumatology Mariajose Reynoso MD Upcoming Rheumatology Appointments - Next 365 Days Visit Type Date Time Department [facility] 09/11/2024 2:00 PM [facility] MAIN A50 Last Ophthalmology Check for Plaquenil (Hydroxychloroquine) Last OCT Macula Exam No resulted procedures found. Last Visual Field Exam No resulted procedures found. CBC: Latest Ref Rng & Units 09/06/2023 01/15/2024 CBC WBC 3.70 - 11.00 k/uL 6.29 5.08 Hemoglobin 11.5 - 15.5 g/dL 12.4 12.1 Hematocrit 36.0 - 46.0 % 37.8 36.0 Platelet Count 150 - 400 k/uL 278 271 Abs Neut (ANC) 1.45 - 7.50 k/uL 4.42 3.70 Abs Lymph 1.00 - 4.00 k/uL 1.29 0.99 Vitamin D: None on file in the last 6 months LFT: Latest Ref Rng & Units 01/15/2024 04/29/2024 CMP Sodium 136 - 144 mmol/L 138 Potassium 3.7 - 5.1 mmol/L 4.0 Chloride 98 - 107 mmol/L 105 CO2 22 - 30 mmol/L 23 Glucose 74 - 99 mg/dL 94 BUN 7 - 21 mg/dL 18 16 Creatinine 0.58 - 0.96 mg/dL 0.82 0.82 Calcium 8.5 - 10.2 mg/dL 9.0 AST 13 - 35 U/L 10 ALT 7 - 38 U/L 9 Hepatic Function: Creatinine: Latest Ref Rng & Units 01/15/2024 04/29/2024 Creatinine Creatinine 0.58 - 0.96 mg/dL 0.82 0.82 ESR/CRP: Latest Ref Rng & Units 09/06/2023 01/15/2024 ESR, WSR WSR 0 - 20 mm/hr 30 40 Latest Ref Rng & Units 09/06/2023 01/15/2024 CRP CRP <0.9 mg/dL 1.8 1.3 Uric Acid: None on file in the last 6 months Open Standing (Multiple Instance) Lab Orders Remain Interval Expires Ordered Last Rel. ALT/SGPT [SQALT] 3/4 Every 3 months 06/04/24 06/05/23 01/15/24 Auth. provider: Mariajose Reynoso MD Assoc. diagnoses: Seronegative rheumatoid arthritis (HCC) AST/SGOT BLD [SQAST] 3/4 Every 3 months 06/04/24 06/05/23 01/15/24 Auth. provider: Mariajose Reynoso MD Assoc. diagnoses: Seronegative rheumatoid arthritis (HCC) BUN BLOOD [SQBUN] 3/4 Every 3 months 06/04/24 06/05/23 01/15/24 Auth. provider: Mariajose Reynoso MD Assoc. diagnoses: Seronegative rheumatoid arthritis (HCC) C-REACTIVE PROTEIN (CRP) [SQCRP] 3/4 Every 3 months 06/04/24 06/05/23 01/15/24 Auth. provider: Mariajose Reynoso MD Assoc. diagnoses: Seronegative rheumatoid arthritis (HCC) CREATININE BLD [SQCRET] 3/4 Every 3 months 06/04/24 06/05/23 01/15/24 Auth. provider: Mariajose Reynoso MD Assoc. diagnoses: Seronegative rheumatoid arthritis (HCC) SED RATE WESTERGREN [SQWSR] 3/4 Every 3 months 06/04/24 06/05/23 01/15/24 Auth. provider: Mariajose Reynoso MD Assoc. diagnoses: Seronegative rheumatoid arthritis (HCC) CBC + DIFF [SQCBCDIF] 3/4 Every 3 months 06/04/24 06/05/23 01/15/24 Auth. provider: Mariajose Reynoso MD Assoc. diagnoses: Seronegative rheumatoid arthritis (HCC) ALANINE AMINOTRANSFERASE / SGPT [SQALT] 2/2 Every 6 months 03/08/25 03/08/24 Auth. provider: Mariajose Reynoso MD Assoc. diagnoses: Seronegative rheumatoid arthritis (HCC) ASPARTATE AMINOTRANSFERASE/SGOT [SQAST] 2/2 Every 6 months 03/08/25 03/08/24 Auth. provider: Mariajose Reynoso MD Assoc. diagnoses: Seronegative rheumatoid arthritis (HCC) C-REACTIVE PROTEIN [SQCRP] 2/2 Every 6 months 03/08/25 03/08/24 Auth. provider: Mariajose Reynoso MD Assoc. diagnoses: Seronegative rheumatoid arthritis (HCC) SEDIMENTATION RATE, WESTERGREN [SQWSR] 2/2 Every 6 months 03/08/25 03/08/24 Auth. provider: Mariajose Reynoso MD Assoc. diagnoses: Seronegative rheumatoid arthritis (HCC) CREATININE BLD [SQCRET] 2/2 Every 6 months 03/08/25 03/08/24 Auth. provider: Mariajose Reynoso MD Assoc. diagnoses: Seronegative rheumatoid arthritis (HCC) COMPLETE BLOOD COUNT AND DIFFERENTIAL [SQCBCDIF] 2/2 Every 6 months 03/08/25 03/08/24 Auth. provider: Mariajose Reynoso MD Assoc. diagnoses: Seronegative rheumatoid arthritis (HCC) UREA NITROGEN [SQBUN] 2/2 Every 6 months 03/08/25 03/08/24 Auth. provider: Mariajose Reynoso MD Assoc. diagnoses: Seronegative rheumatoid arthritis (HCC) Open Future (Single Instance) Lab Orders None Vianney Bass RN documented in this encounterC[facility]06-10-[facility] History of Present illness Narrative* Cabrera Chacon, RT(R) - 04/22/2024 3:20 PM EDT Radiology Service Progress Note PATIENT NAME: Alona Rodrigez DATE OF SERVICE: April 22, 2024 TIME: 3:03 PM PATIENT IDENTITY VERIFICATION COMPLETED USING TWO (2) IDENTIFIERS: Name and Date of confirmedby patient verbally. FALL SCREENING: Has the patient had 2 falls in the last year or 1 fall with injury or currently using an Ambulatory Assistive Device (Walker, Cane, Wheelchair, Crutches, etc.)? No PATIENT GENDER DATA: Female. status: : No status: NO. PATIENT RELEVANT IMPLANT DATA REVIEWED: Not Applicable PATIENT PRESENTS WITH AN IMPLANTABLE OR ATTACHED TESTER REGULATOR: No RADIOLOGY DEPARTMENT: General X-ray: Exam(s) Completed: Rib X-Ray: Left PERIPHERAL IV DATA: Not applicable SIGNED BY: RT Suzanne(Cj) April 22, 2024 3:03 PM documented in this encounterC[facility]06-10-2024 NoteHNO ID: [id number] Author: CABRERA CHACON RT(R) Service: Radiology Author Type: Technologist Type: Progress Notes Filed: 04/22/2024 15:12 Note Text: Radiology Service Progress Note PATIENT NAME: Alona Rodrigez DATE OF SERVICE: April 22, 2024 TIME: 3:03 PM PATIENT IDENTITY VERIFICATION COMPLETED USING TWO (2) IDENTIFIERS: Name and Date of confirmed by patient verbally. FALL SCREENING: Has the patient had 2 falls in the last year or 1 fall with injury or currently using an Ambulatory Assistive Device (Walker, Cane, Wheelchair, Crutches, etc.)? No PATIENT GENDER DATA: Female. status: : No status: NO. PATIENT RELEVANT IMPLANT DATA REVIEWED: Not Applicable PATIENT PRESENTS WITH AN IMPLANTABLE OR ATTACHED TESTER REGULATOR: No RADIOLOGY DEPARTMENT: General X-ray: Exam(s) Completed: Rib X-Ray: Left PERIPHERAL IV DATA: Not applicable SIGNED BY: RT Suzanne(Cj) April 22, 2024 3:03 [facility]06-10-2024 NoteHNO ID: [id number] Author: SINA VANEGAS MD Service: ? Author Type: Physician Type: Progress Notes Filed: 04/22/2024 14:48 Note Text: Patient presents with: Physical HPI: Patient presents today for office visit for physical. Sertaline is working well. No side effects from meds. Discussed weight. No gi issues. Still seeing rheum. Remains on plaquenil. Feels meds are working well. Saw derm Keeping up with eye appt. MEDICATIONS: Current Outpatient Medications Medication Sig omeprazole (PRILOSEC) 20 mg capsule Take 1 capsule by mouth once daily. sertraline (ZOLOFT) 100 mg tablet Take 1 tablet by mouth once daily. hydrOXYchloroQUINE (PLAQUENIL) 200 mg tablet Take 1 tablet by mouth once daily. Etonogestrel-Ethinyl Estradiol (NUVARING) 0.12-0.015 mg/24 hr vaginal ring Insert vaginally for 3 weeks then replace omeprazole (PRILOSEC) 20 mg capsule Take 1 capsule by mouth once daily. No current facility-administered medications for this visit. ALLERGIES: ALLERGIES No Known Allergies PAST MEDICAL HISTORY Diagnosis Date Abnormal Pap smear and cervical HPV (human papillomavirus) colp 05/2010 BRANDI 1 Arthritis Depression Hx of colonoscopy 01/05/[address] Givens PAST SURGICAL HISTORY Procedure Laterality Date DILATION AND CURETTAGE DXAND/THER NONOBSTETRIC EGD 02/01/2021 SKIN BIOPSY HX FAMILY HISTORY Problem Relation Age of Onset None Mother Cancer Father Pre cancer Moles Cervical Cancer Sister Resolved Diabetes Maternal Grandmother Heart Maternal Grandmother Hypertension Maternal Grandmother other (Other) Paternal Grandmother macular degeneratin.iddm,tias other (Other) Paternal Grandfather macular degeneration, Colon Cancer Paternal Grandfather Diabetes Maternal Uncle other (Macular Degeneration) Paternal Uncle Stroke Paternal Uncle other (MALIGNANT MELANOMA) Paternal Uncle PATERNAL AUNT other (Macular Degeneration) Other PGUNCLE Social History Tobacco Use Smoking status: Never Smokeless tobacco: Never Substance Use Topics Alcohol use: Yes Comment: Occasionally Drug use: No Reviewed current medications, allergies, past medical history, surgical history, family history and social history today. REVIEW OF SYSTEMS HEENT: Negative for frequent or significant headaches, No changes in hearing or vision, no nose bleeds or other nasal problems RESPIRATORY: Negative for cough, hemoptysis, wheezing, COPD, dyspnea or shortness of breath CARDIOVASCULAR: Negative for chest pain, leg swelling, hypertension, CHF or palpitations, has chronic spot of anterior chest wall pain laying on her back only. Offered further work up. GI: No nausea, vomiting, or diarrhea : No history of dysuria, frequency or incontinence MUSCULOSKELETAL: per rheum. SKIN: Negative for lesions, rash, and itching All other reviewed and negative other than HPI. HEALTH MAINTENANCE: Reviewed health maintenance issues today and recommended the following in detail. HIV Screening Never done Hepatitis B Vaccine(1 of 3 - 19+ 3-dose series) Never done DTaP,Tdap,Td Vaccine(2 - Tdap) due on 06/13/2019 VITALS: BP 122/80 Pulse 74 Wt 77.1 kg (170 lb) LMP 04/06/2016 (Approximate) SpO2 99% BMI 30.11 kg/m? Last 4 Encounter Wt Readings: Date: Wt: 01/05/2024 73.5 kg (162 lb 0.6 oz) 11/27/2023 73.5 kg (162 lb) 09/06/2023 74.9 kg (165 lb 1.6 oz) 05/26/2023 76.6 kg (168 lb 14.4 oz) PHYSICAL EXAMINATION: General appearance: Well appearing, alert, in no acute distress, well-hydrated, well nourished. Skin: Skin color, texture, turgor normal, no suspicious rashes or lesions Head: Normocephalic, no masses, lesions, tenderness or abnormalities Eyes: Anicteric sclera. Pupils are equally round and reactive to light. Extraocular movements are intact. Ears: External ears normal, canals clear Nose/Sinuses: Nares normal, septum midline, mucosa normal, no drainage or sinus tenderness Oropharynx: Lips, mucosa, and tongue normal, teeth and gums normal, oropharynx normal Neck: Supple, no adenopathy; thyroid symmetric, normal size, no bruits Chest wall shows tenderness over anterior rib on left. No deformity Lungs: Lungs clear to auscultation. No wheezing, rhonchi, rales Heart: RRR without murmur, gallop, or rubs. No ectopy Abdomen: Normal abdominal exam, Abdomen soft, non-tender. Bowel sounds normal. No masses, organomegaly Extremities: No deformities, edema, skin discoloration, clubbing or cyanosis. Good capillary refill. Musculoskeletal: No joint swelling, deformity, or tenderness Peripheral pulses: Normal Neuro: Negative. ASSESSMENT/PLAN: 1. Well adult exam - ICD9: V70.0, ICD10: Z00.00 (primary diagnosis) - stabld 2. ERICKSON (generalized anxiety disorder) - ICD9: 300.02, ICD10: F41.1 - continue meds. - SERTRALINE 100 MG TABLET - BASIC METABOLIC PANEL 3. Seronegative rheumatoid arthritis (HCC) - ICD9: 714.0, ICD10 (more content not included)...[facility]06-[facility] History of Present illness Narrative* Sina Vanegas MD - 04/22/2024 2:32 PM EDT Patient presents with: Physical HPI: Patient presents today for office visit for physical. Sertaline is working well. No side effects from meds. Discussed weight. No gi issues. Still seeing rheum. Remains on plaquenil. Feels meds are working well. Saw derm Keeping up with eye appt. MEDICATIONS: Current Outpatient Medications Medication Sig omeprazole (PRILOSEC) 20 mg capsule Take 1 capsule by mouth once daily. sertraline (ZOLOFT) 100 mg tablet Take 1 tablet by mouth once daily. hydrOXYchloroQUINE (PLAQUENIL) 200 mg tablet Take 1 tablet by mouth once daily. Etonogestrel-Ethinyl Estradiol (NUVARING) 0.12-0.015 mg/24 hr vaginal ring Insert vaginally for 3 weeks then replace omeprazole (PRILOSEC) 20 mg capsule Take 1 capsule by mouth once daily. No current facility-administered medications for this visit. ALLERGIES: ALLERGIES No Known Allergies PAST MEDICAL HISTORY Diagnosis Date Abnormal Pap smear and cervical HPV (human papillomavirus) colp 05/2010 BRANDI 1 Arthritis Depression Hx of colonoscopy 01/05/[address] Givens PAST SURGICAL HISTORY Procedure Laterality Date DILATION & CURETTAGE DX&/THER NONOBSTETRIC EGD 02/01/2021 SKIN BIOPSY HX FAMILY HISTORY Problem Relation Age of Onset None Mother Cancer Father Pre cancer Moles Cervical Cancer Sister Resolved Diabetes Maternal Grandmother Heart Maternal Grandmother Hypertension Maternal Grandmother other (Other) Paternal Grandmother macular degeneratin.iddm,tias other (Other) Paternal Grandfather macular degeneration, Colon Cancer Paternal Grandfather Diabetes Maternal Uncle other (Macular Degeneration) Paternal Uncle Stroke Paternal Uncle other (MALIGNANT MELANOMA) Paternal Uncle PATERNAL AUNT other (Macular Degeneration) Other PGUNCLE Social History Tobacco Use Smoking status: Never Smokeless tobacco: Never Substance Use Topics Alcohol use: Yes Comment: Occasionally Drug use: No Reviewed current medications, allergies, past medical history, surgical history, family history andsocial history today. REVIEW OF SYSTEMS HEENT: Negative for frequent or significant headaches, No changes in hearing or vision, no nose bleeds or other nasal problems RESPIRATORY: Negative for cough, hemoptysis, wheezing, COPD, dyspnea or shortness of breath CARDIOVASCULAR: Negative for chest pain, leg swelling, hypertension, CHF or palpitations, has chronic spot of anterior chest wall pain laying on her back only. Offered further work up. GI: No nausea, vomiting, or diarrhea : No history of dysuria, frequency or incontinence MUSCULOSKELETAL: per rheum. SKIN: Negative for lesions, rash, and itching All other reviewed and negative other than HPI. HEALTH MAINTENANCE: Reviewed health maintenance issues today and recommended the following in detail. HIV Screening Never done Hepatitis B Vaccine(1 of 3 - 19+ 3-dose series) Never done DTaP,Tdap,Td Vaccine(2 - Tdap) due on 06/13/2019 VITALS: BP 122/80 Pulse 74 Wt 77.1 kg (170 lb) LMP 04/06/2016 (Approximate) SpO2 99% BMI 30.11 kg/m Last 4 Encounter Wt Readings: Date: Wt: 01/05/2024 73.5 kg (162 lb 0.6 oz) 11/27/2023 73.5 kg (162 lb) 09/06/2023 74.9 kg (165 lb 1.6 oz) 05/26/2023 76.6 kg (168 lb 14.4 oz) PHYSICAL EXAMINATION: General appearance: Well appearing, alert, in no acute distress, well-hydrated, well nourished. Skin: Skin color, texture, turgor normal, no suspicious rashes or lesions Head: Normocephalic, no masses, lesions, tenderness or abnormalities Eyes: Anicteric sclera. Pupils are equally round and reactive to light. Extraocular movements are intact. Ears: External ears normal, canals clear Nose/Sinuses: Nares normal, septum midline, mucosa normal, no drainage or sinus tenderness Oropharynx: Lips, mucosa, and tongue normal, teeth and gums normal, oropharynx normal Neck: Supple, no adenopathy; thyroid symmetric, normal size, no bruits Chest wall shows tenderness over anterior rib on left. No deformity Lungs: Lungs clear to auscultation. No wheezing, rhonchi, rales Heart: RRR without murmur, gallop, or rubs. No ectopy Abdomen: Normal abdominal exam, Abdomen soft, non-tender. Bowel sounds normal. No masses, organomegaly Extremities: No deformities, edema, skin discoloration, clubbing or cyanosis. Good capillary refill. Musculoskeletal: No joint swelling, deformity, or tenderness Peripheral pulses: Normal Neuro: Negative. ASSESSMENT/PLAN: 1. Well adult exam - ICD9: V70.0, ICD10: Z00.00 (primary diagnosis) - stabld 2. ERICKSON (generalized anxiety disorder) - ICD9: 300.02, ICD10: F41.1 - continue meds. - SERTRALINE 100 MG TABLET - BASIC METABOLIC PANEL 3. Seronegative rheumatoid arthritis (HCC) - ICD9: 714.0, ICD10: M06.00 - per rheum. 4. Panic disorder - ICD9: 300.01, ICD10: F41.0 - doing wel. 5. Moderate mixed hyperlipidemia not requiring statin therapy - ICD9: 272.2, ICD10: E78.2 - Controlled - Continue current medications - LIPID PANEL BASIC 6. Chest wall pain - ICD9: 786.52, ICD10: R07.89 - xray of ribs. Offered therapy etc. Red flags for re-assessment reviewed with patient in detail. Sina Vanegas MD documented in this encounterC[facility] Telephone encounter Note * Telephone Encounter - Meera Bergman OCCA - 04/10/2024 6:58 AM EDT Patient has been identified by name and date of : Yes Patient phones for refill(s): Requested Prescriptions Pending Prescriptions Disp Refills omeprazole (PRILOSEC) 20 mg capsule 90 capsule 3 Sig: Take 1 capsule by mouth once daily. Date of last office visit in primary care: 11/27/2023 Date of next office visit in primary care: 04/22/2024 Please advise. Thank you. LAUREN Ernandez. [facility]05-29-[facility] Miscellaneous Notes* Telephone Encounter - Meera Bergman OCCA - 04/10/2024 6:58 AM EDT Patient has been identified by name and date of : Yes Patient phones for refill(s): Requested Prescriptions Pending Prescriptions Disp Refills omeprazole (PRILOSEC) 20 mg capsule 90 capsule 3 Sig: Take 1 capsule by mouth once daily. Date of last office visit in primary care: 11/27/2023 Date of next office visit in primary care: 04/22/2024 Please advise. Thank you. LAUREN Ernandez. documented in this encounterC[facility]04-26-[facility] History of Present illness Narrative* Mariajose Reynoso MD - 03/08/2024 4:30 PM EDT VIRTUAL VISIT PROGRESS NOTE This is a virtual visit using [employer] Zoom Video Visit. It required patient- provider interaction for the medical decision making as documented below. I have communicated my name and active licensure. The patient's identity and physical location wereverified at the time of this visit. Either the patient or their legal patient financial representative has been informed of the risks and benefits of -- and alternatives to -- treatment through a remote evaluation andconsents to proceed with the evaluation remotely. Mariajose Reynoso MD Alona Rodrigez March 08, 2024 Referring Provider: PCP: Sina Vanegas MD Chief Complaint: Patient presents with: Joint Pain Background Rheumatologic History: Ms. Rodrigez reports that about 10 years ago she was diagnosed with inflammatory arthritis. She reported at the time, experiencing significant bilateral knee pain and swelling, as well as intermittent hip tightness. Labs were checked and at that time, CRP/ESR were elevated, but KISHAN and RF were neg ative. She was told that if her symptoms worsened, she could be seen by a dermatology physician, however her symptoms were generally manageable so she did not present. About two years ago, she developed progressively worsening joint disease. She endorses joint pain, swelling, tightness of her shoulders, elbows, wrists, fingers, knees, and toes. The worst joints are her toes and fingers. She states that her joint pain/stiffness migrates from one joint to anotherbut her toes are basically always stiff. She endorses morning stiffness that lasts at least 30- 60 minutes, improves with activity. She denies any redness or erythema to her joints. Sometimes the painis so severe that is limits her ability to walk/complete ADLs. This was the case about two weeks ago, when she had severe joint stiffness and pain and could not walk. Her PCP prescribed a course of Me loxicam (that she began 4 days ago) and checked bloodwork. KISHAN positive, RF negative, ESR/CRP elevated. She reports that she has never taken prednisone for joint issues, has never tried plaquenil. Usually, her joint symptoms are managed with heat/ice or the occasional ibuprofen. She otherwise denies any rashes, photosensitivity, eye pain, eye redness, changes to vision, mouth ulcers, dysphagia, odoynphoagia, shortness of breath, pleuritic pain, chest pain, blood in stool, melena, weakness, hair loss, nail changes, Raynaud's phenomenon, hypermobility. She describes her energy levels as alright. Family hx: - cousin w/ lupus - otherwise none I first saw her 05/26/23 47 yo female present with polyarthralgia. Characteristics of her joint pain sounds inflammatory to me. Exam show swelling and tenderness in several joints especially in her hands. High suspicion for rheumatoid. We will obtain a comprehensive set of serologies and x-rays. F/U 06/05/23 CCP neg ABBY neg Responding quite well to meloxicam. Her pain and stiffness are minimal now. I think that seronegative rheumatoid arthritis is the most likely explanation for her arthritis based on the pattern of her arthritis. Elevated inflammatory markers and responsiveness to meloxicam are very suggestive of inflammatory arthritis. We will start her on hydroxychloroquine given its favorable safety profile. Side effects of HCQ, especially HCQ maculopathy, were discussed. The patient will need regular eye exam. I will recommend her to keep taking meloxicam every day for 1 month and then downgrade it to as needed. F/U 09/06/23 Doing better on Plaquenil. She is able to stop meloxicam July 14. Since then, she describes 2 minor flare in her knees. No pain or swelling today. Continue hydroxychloroquine monotherapy Interim History: Patient returns for follow up, last visit 09/06/2023. She has been doing well since last visit. Minimal pain. Occasional swelling in her knees. Has not done eye exam yet. Labs ok except for slightly elevated sed rate and CRP PAST MEDICAL HISTORY Diagnosis Date Abnormal Pap smear and cervical HPV (human papillomavirus) colp 05/2010 BRANDI 1 Arthritis Depression Hx of colonoscopy 01/05/[address] Givens PAST SURGICAL HISTORY Procedure Laterality Date DILATION & CURETTAGE DX&/THER NONOBSTETRIC EGD 02/01/2021 SKIN BIOPSY HX Social History Tobacco Use Smoking status: Never Smokeless tobacco: Never Substance Use Topics Alcohol use: Yes Comment: Occasionally Drug use: No Health Maintenance There are no preventive care reminders to display for this patient. Immunization History Administered Date(s) Administered COVID-19 original vaccine, age 12+ yr, monovalent (PFIZER-BIONTSouthern Swim - PURPLE TOP) 12/23/2020 11/27/2021 diphtheria tetanus pertussis (DTaP) vaccine, pediatric (INFANRIX) 06/13/2009 influenza (IIV4) vaccine, age 6 mo - 64 yr, quadrivalent, PF (AFLURIA, FLUARIX, FLULAVAL, FLUZONE) 09/14/2021 08/18/2022 09/22/2023 influenza (ccIIV4) vaccine, age 6+ mo, quadrivalent, PF (FLUCELVAX) 09/28/2020 Current Outpatient Medications Medication Sig Dispense Refill sertraline (ZOLOFT) 100 mg tablet Take 1 tablet by mouth once daily. 6 tablet 1 omeprazole (PRILOSEC) 20 mg capsule Take 1 capsule by mouth once daily. 6 capsule 3 hydrOXYchloroQUINE (PLAQUENIL) 200 mg tablet Take 1 tablet by mouth once daily. 30 tablet 11 Etonogestrel-Ethinyl Estradiol (NUVARING) 0.12-0.015 mg/24 hr vaginal ring Insert vaginally for 3 weeks then replace 2 Each 9 No current facility-administered medications for this visit. ALLERGIES No Known Allergies Physical Exam: LMP 04/06/2016 Impression: Seronegative rheumatoid arthritis Long-term use of hydroxychloroquine I think she is in remission. Hydroxychloroquine monotherapy is working well. I will continue it. She will do eye exam soon. Recommendations/Plan Plan discussed with patient Return Visit: In person appointment September 11 at 2 PM. Labs done 1 week before. I spent a total of 30 minutes on the date of the service which included preparing to see the patient, [id number] patient care, completing clinical documentation, obtaining and/or reviewing separately obtained history, performing a medically appropriate examination, counseling and educating the pat ient/family/caregiver, and ordering medications, tests, or procedures. Mariajose Reynoso MD Referring Provider: PCP: Sina Vanegas MD Answers submitted by the patient for this visit: Review of Systems Rheumatology (Submitted on 03/07/2024) Fever : No Recent unintentional weight change: No Eye pain: No Eye redness: No Vision Disturbance: No Eye Dryness: No Nosebleeds: No Sores in your mouth: No Trouble Swallowing: No Dry Mouth: No Chest pain: No Leg Swelling: No A cough: No Shortness of breath: No Pain with breathing: No Heartburn: No Abdominal pain: No Diarrhea: No Black tarry stools: No Blood in urine: No Pain or burning with urination: No Joint pain or stiffness: Yes Muscle weakness: No Muscle aches: Yes Joint swelling: Yes Morning Stiffness in Joints: Yes A rash: Yes Do you have sun sensitive rashes?: No Skin Color Changes: No Hair Loss: No Nail Changes: No Headaches: Yes Numbness: Yes Memory Loss: No Swollen Glands: No documented in this encounterC[facility]03-30-[facility]24 Miscellaneous Notes* Telephone Encounter - Joan Rothman - 02/10/2024 8:06 AM EDT Patient has been identified by name and date of : Yes, Provider Dr. Vanegas Date 02/10/2024 Time 8:08 AM Patient phones for refill(s): Requested Prescriptions Pending Prescriptions Disp Refills sertraline (ZOLOFT) 100 mg tablet 6 tablet 1 Sig: Take 1 tablet by mouth once daily. omeprazole (PRILOSEC) 20 mg capsule 6 capsule 3 Sig: Take 1 capsule by mouth once daily. Patient is traveling and forget her medicine. She is wondering if she could have 6 of each sent to the [place] pharmacy listed. Date of last office visit in primary care: Visit date not found Date of next office visit in primary care: Visit date not found Please advise. Thank you. Joan Rothman. documented in this encounterC[facility]03-25-2024 Miscellaneous Notes* Telephone Encounter - Lalita Stone LPN - 02/05/2024 8:05 PM EDT Patient has been identified by name and date of : Yes Requested Prescriptions Pending Prescriptions Disp Refills sertraline (ZOLOFT) 100 mg tablet 90 tablet 1 Sig: Take 1 tablet by mouth once daily. RX INSTRUCTIONS: Patient aware RX will be sent to pharmacy. No need to notify patient. CHARLEY 11/27/23 Scheduled 04/22/24 Lalita Stone LPN documented in this encounterC[facility]02-23-2024 Miscellaneous Notes* Discharge Instr - Nursing - Vita Cobb RN - 01/05/2024 9:16 AM EST The patient received a copy of Colonoscopy discharge instructions that contain information for how to contact the physician who performed the procedure and when to seek medical care. documented in this encounterC[facility]02-23-2024 Nurse Note* Vita Cobb RN - 01/05/2024 9:10 AM EST Abdomen soft non-distended. Will continue to monitor. documented in this encounterC[facility]02-23-2024 History and physical note * Irene Givens MD - 01/05/2024 8:15 AM EST UPDATED PROCEDURAL SEDATION HISTORY AND PHYSICAL EXAMINATION SERVICE DATE: 01/05/2024 SERVICE TIME: 8:12 PHYSICAL EXAM MUST BE COMPLETED ON ADMISSION PROCEDURE: colonoscopy, possible biopsies Procedure Indications: screening for colon cancer The History and Physical (completed in the past 30 days) has been reviewed and the patient has beenexamined. The contents accurately reflect the patient's condition with the following additions or revisions since the H&P was completed. ASA Class: ASA Class:: Patient with mild systemic disease Examination indicates no changes. AIRWAY: Airway Visualization of Uvula: Yes Mouth opening greater than 2 fingerbreadths: Yes Neck Full Range of Motion: Yes LUNGS: Lungs clear to auscultation CARDIAC: Regular rhythm,Regular rate Provisional Diagnosis/Treatment Plan: colonoscopy, possible biopsies SEDATION GOAL: Moderate This H&P can be found in the Electronic Medical Record . SIGNATURE: Irene Givens MD PATIENT NAME: Alona Rodrigez DATE: January 05, 2024 TIME: 8:12 AM Source Note - Irene Givens MD - 01/05/2024 8:11 AM EST HISTORY AND PHYSICAL Alona Rodrigez 1975 REFERRING PHYSICIAN: Irene Givens MD CHIEF COMPLAINT: No chief complaint on file. HPI: The patient is a 48 year old female presents for screening for colon cancer via colonoscopy The patient denies blood in stools, denies abdominal pain, and denies changes in bowel habits. The patient notes no colon cancer in immediate family. The patient has not had previous colonoscopy. PAST MEDICAL HISTORY Diagnosis Date Abnormal Pap smear and cervical HPV (human papillomavirus) colp 05/2010 BRANDI 1 Depression PAST SURGICAL HISTORY Procedure Laterality Date DILATION & CURETTAGE DX&/THER NONOBSTETRIC EGD 02/01/2021 Current Outpatient Medications Medication Sig omeprazole (PRILOSEC) 20 mg capsule Take 1 capsule by mouth once daily. sertraline (ZOLOFT) 100 mg tablet Take 1 tablet by mouth once daily. hydrOXYchloroQUINE (PLAQUENIL) 200 mg tablet Take 1 tablet by mouth once daily. Etonogestrel-Ethinyl Estradiol (NUVARING) 0.12-0.015 mg/24 hr vaginal ring Insert vaginally for 3 weeks then replace No current facility-administered medications for this encounter. ALLERGIES: Patient has no known allergies. PERSONAL HISTORY: Social History Tobacco Use Smoking status: Never Smokeless tobacco: Never Substance Use Topics Alcohol use: Yes Comment: Occasionally Drug use: No FAMILY HISTORY Problem Relation Age of Onset None Mother Cancer Father Pre cancer Moles Cervical Cancer Sister Resolved Diabetes Maternal Grandmother Heart Maternal Grandmother Hypertension Maternal Grandmother other (Other) Paternal Grandmother macular degeneratin.iddm,tias other (Other) Paternal Grandfather macular degeneration, Colon Cancer Paternal Grandfather Diabetes Maternal Uncle other (Macular Degeneration) Paternal Uncle Stroke Paternal Uncle other (MALIGNANT MELANOMA) Paternal Uncle PATERNAL AUNT other (Macular Degeneration) Other PGUNCLE REVIEW OF SYSTEMS; Denies fevers Denies shortness of breath Denies chest pain Physical examination: Vital signs in chart, reviewed and noted by me General - WD/WN in no apparent distress, alert and oriented Head - Normocephalic. EOM intact with sclera clear. Mouth with mucus membranes moist. Neck - supple with no jugular venous distention noted. Trachea is midline. Lungs - normal breath sounds, normal respiratory motion, no adventitial sounds noted. Heart - normal heart sounds. Regular rate. Abdomen - soft and benign. Extremities - no pitting edema noted. Skin - Normal skin integrity. Neurological - non focal Psych - calm and appropriate Impression: screening for colon cancer, Discussion/Plan/Recommendations: I have discussed the above with the patient. I have offered colonoscopy , possible biopsies I have explained the procedure to the patient. I have counseled the patient as to the risks of the procedure, including but not limited to: infection, bleeding, injury to any intrabdominal organs such as liver/spleen, perforation of the GI tract,inability to complete the procedure, complications of anesthesia, etc. - the patient understands. The patient wishes to proceed. I have answered all questions to the patient s satisfaction and the patient has no further questions. . Irene Givens MD * Irene Givens MD - 01/05/2024 8:11 AM EST HISTORY AND PHYSICAL Alona Rios Rain 1975 REFERRING PHYSICIAN: Irene Givens MD CHIEF COMPLAINT: No chief complaint on file. HPI: The patient is a 48 year old female presents for screening for colon cancer via colonoscopy The patient denies blood in stools, denies abdominal pain, and denies changes in bowel habits. The patient notes no colon cancer in immediate family. The patient has not had previous colonoscopy. PAST MEDICAL HISTORY Diagnosis Date Abnormal Pap smear and cervical HPV (human papillomavirus) colp 05/2010 BRANDI 1 Depression PAST SURGICAL HISTORY Procedure Laterality Date DILATION & CURETTAGE DX&/THER NONOBSTETRIC EGD 02/01/2021 Current Outpatient Medications Medication Sig omeprazole (PRILOSEC) 20 mg capsule Take 1 capsule by mouth once daily. sertraline (ZOLOFT) 100 mg tablet Take 1 tablet by mouth once daily. hydrOXYchloroQUINE (PLAQUENIL) 200 mg tablet Take 1 tablet by mouth once daily. Etonogestrel-Ethinyl Estradiol (NUVARING) 0.12-0.015 mg/24 hr vaginal ring Insert vaginally for 3 weeks then replace No current facility-administered medications for this encounter. ALLERGIES: Patient has no known allergies. PERSONAL HISTORY: Social History Tobacco Use Smoking status: Never Smokeless tobacco: Never Substance Use Topics Alcohol use: Yes Comment: Occasionally Drug use: No FAMILY HISTORY Problem Relation Age of Onset None Mother Cancer Father Pre cancer Moles Cervical Cancer Sister Resolved Diabetes Maternal Grandmother Heart Maternal Grandmother Hypertension Maternal Grandmother other (Other) Paternal Grandmother macular degeneratin.iddm,tias other (Other) Paternal Grandfather macular degeneration, Colon Cancer Paternal Grandfather Diabetes Maternal Uncle other (Macular Degeneration) Paternal Uncle Stroke Paternal Uncle other (MALIGNANT MELANOMA) Paternal Uncle PATERNAL AUNT other (Macular Degeneration) Other PGUNCLE REVIEW OF SYSTEMS; Denies fevers Denies shortness of breath Denies chest pain Physical examination: Vital signs in chart, reviewed and noted by me General - WD/WN in no apparent distress, alert and oriented Head - Normocephalic. EOM intact with sclera clear. Mouth with mucus membranes moist. Neck - supple with no jugular venous distention noted. Trachea is midline. Lungs - normal breath sounds, normal respiratory motion, no adventitial sounds noted. Heart - normal heart sounds. Regular rate. Abdomen - soft and benign. Extremities - no pitting edema noted. Skin - Normal skin integrity. Neurological - non focal Psych - calm and appropriate Impression: screening for colon cancer, Discussion/Plan/Recommendations: I have discussed the above with the patient. I have offered colonoscopy , possible biopsies I have explained the procedure to the patient. I have counseled the patient as to the risks of the procedure, including but not limited to: infection, bleeding, injury to any intrabdominal organs such as liver/spleen, perforation of the GI tract,inability to complete the procedure, complications of anesthesia, etc. - the patient understands. The patient wishes to proceed. I have answered all questions to the patient s satisfaction and the patient has no further questions. . Irene Givens MD documented in this encounterC[facility]02-20-[facility]24 Miscellaneous Notes* Telephone Encounter - Araceli Luke LPN - 01/02/2024 9:58 AM EST Patient has been identified by name and date of : Yes, Patient phones for refill(s): Requested Prescriptions Pending Prescriptions Disp Refills omeprazole (PRILOSEC) 20 mg capsule 90 capsule 3 Sig: Take 1 capsule by mouth once daily. Date of last office visit in primary care: 11/27/2023 Date of next office visit in primary care: 04/22/2024 Please advise. Thank you. Araceli Luke LPN. documented in this encounterC[facility]01-15-[facility] History of Past illness Narrative* Problem Noted Date Diagnosed Date Resolved Date Acute bronchitis 11/27/2023 11/27/2023 11/27/2023 Neoplasm of uncertain behavior of skin 04/28/2011 11/27/2023 documented as of this encounter (statuses as of 01/02/2024) [facility] History of Past illness Narrative* Problem Noted Date Diagnosed Date Resolved Date Acute bronchitis 11/27/2023 11/27/2023 11/27/2023 Neoplasm of uncertain behavior of skin 04/28/2011 11/27/2023 documented as of this encounter (statuses as of 01/06/2024) [facility] History of Past illness Narrative* Problem Noted Date Diagnosed Date Resolved Date Acute bronchitis 11/27/2023 11/27/2023 11/27/2023 Neoplasm of uncertain behavior of skin 04/28/2011 11/27/2023 documented as of this encounter (statuses as of 02/06/2024) [facility] History of Past illness Narrative* Problem Noted Date Diagnosed Date Resolved Date Acute bronchitis 11/27/2023 11/27/2023 11/27/2023 Neoplasm of uncertain behavior of skin 04/28/2011 11/27/2023 documented as of this encounter (statuses as of 02/12/2024) [facility] Instructions* Patient Instructions* Mariajose Reynoso MD - 09/06/2023 4:32 PM EDT Follow up zoom call March 08 at 4.30 documented in this encounterCleveland [facility]10-25-2023 History of Present illness Narrative* Mariajose Reynoso MD - 09/06/2023 4:30 PM EDT Mariajose Reynoso MD Alona Rodrigez September 05, 2023 Referring Provider: PCP: Sina Vanegas MD Chief Complaint: Patient presents with: Joint Pain Background Rheumatologic History: Ms. Rodrigez reports that about 10 years ago she was diagnosed with inflammatory arthritis. She reported at the time, experiencing significant bilateral knee pain and swelling, as well as intermittent hip tightness. Labs were checked and at that time, CRP/ESR were elevated, but KISHAN and RF were neg ative. She was told that if her symptoms worsened, she could be seen by a dermatology physician, however her symptoms were generally manageable so she did not present. About two years ago, she developed progressively worsening joint disease. She endorses joint pain, swelling, tightness of her shoulders, elbows, wrists, fingers, knees, and toes. The worst joints are her toes and fingers. She states that her joint pain/stiffness migrates from one joint to anotherbut her toes are basically always stiff. She endorses morning stiffness that lasts at least 30- 60 minutes, improves with activity. She denies any redness or erythema to her joints. Sometimes the painis so severe that is limits her ability to walk/complete ADLs. This was the case about two weeks ago, when she had severe joint stiffness and pain and could not walk. Her PCP prescribed a course of Me loxicam (that she began 4 days ago) and checked bloodwork. KISHAN positive, RF negative, ESR/CRP elevated. She reports that she has never taken prednisone for joint issues, has never tried plaquenil. Usually, her joint symptoms are managed with heat/ice or the occasional ibuprofen. She otherwise denies any rashes, photosensitivity, eye pain, eye redness, changes to vision, mouth ulcers, dysphagia, odoynphoagia, shortness of breath, pleuritic pain, chest pain, blood in stool, melena, weakness, hair loss, nail changes, Raynaud's phenomenon, hypermobility. She describes her energy levels as alright. Family hx: - cousin w/ lupus - otherwise none I first saw her 05/26/23 47 yo female present with polyarthralgia. Characteristics of her joint pain sounds inflammatory to me. Exam show swelling and tenderness in several joints especially in her hands. High suspicion for rheumatoid. We will obtain a comprehensive set of serologies and x-rays. F/U 06/05/23 CCP neg ABBY neg Responding quite well to meloxicam. Her pain and stiffness are minimal now. I think that seronegative rheumatoid arthritis is the most likely explanation for her arthritis based on the pattern of her arthritis. Elevated inflammatory markers and responsiveness to meloxicam are very suggestive of inflammatory arthritis. We will start her on hydroxychloroquine given its favorable safety profile. Side effects of HCQ, especially HCQ maculopathy, were discussed. The patient will need regular eye exam. I will recommend her to keep taking meloxicam every day for 1 month and then downgrade it to as needed. Interim History: Patient returns for follow up, last visit 05/26/2023. Doing better on Plaquenil. She is able to stop meloxicam July 14. Since then, she describes 2 minor flare in her knees. No pain or swelling today. PAST MEDICAL HISTORY Diagnosis Date Abnormal Pap smear and cervical HPV (human papillomavirus) colp 05/2010 BRANDI 1 Depression PAST SURGICAL HISTORY Procedure Laterality Date DILATION & CURETTAGE DX&/THER NONOBSTETRIC EGD 02/01/2021 Social History Tobacco Use Smoking status: Never Smokeless tobacco: Never Substance Use Topics Alcohol use: Yes Comment: Occasionally Drug use: No Health Maintenance Colorectal Cancer Screening Never done Influenza Vaccine(1) due on 07/14/2023 Covid-19 Vaccine(3 2022- season) due on 07/14/2023 Mammogram Screening due on 09/15/2023 Immunization History Administered Date(s) Administered COVID-19 original vaccine, age 12+ yr, monovalent ([employer] - PURPLE TOP) 12/23/2020 11/27/2021 diphtheria tetanus pertussis (DTaP) vaccine, pediatric (INFANRIX) 06/13/2009 influenza (IIV4) vaccine, age 6 mo - 64 yr, quadrivalent, PF (AFLURIA, FLUARIX, FLULAVAL, FLUZONE) 09/14/2021 08/18/2022 influenza (ccIIV4) vaccine, age 6+ mo, quadrivalent, PF (FLUCELVAX) 09/28/2020 Current Outpatient Medications Medication Sig Dispense Refill sertraline (ZOLOFT) 100 mg tablet Take 1 tablet by mouth once daily. 90 tablet 1 hydrOXYchloroQUINE (PLAQUENIL) 200 mg tablet Take 1 tablet by mouth once daily. 30 tablet 11 omeprazole (PRILOSEC) 20 mg capsule Take 1 capsule by mouth once daily. 90 capsule 3 Etonogestrel-Ethinyl Estradiol (NUVARING) 0.12-0.015 mg/24 hr vaginal ring Insert vaginally for 3 weeks then replace 2 Each 9 meloxicam (MOBIC) 15 mg tablet Take 1 tablet by mouth once daily. With food. 30 tablet 2 No current facility-administered medications for this visit. ALLERGIES No Known Allergies Physical Exam: BP 143/89 Pulse 87 Temp (Src) 98 (Temporal) Ht 5' 3 (1.60m) Wt 165 lb 1.6 oz (74.9kg) LMP 04/06/2016 BMI 29.25 kg/(m^2). General: Not pale, no jaundice, not in acute distress Head: Normocephalic, atraumatic Eyes: No redeye, no discharge ENT: No oral/nasal ulcer Neck: No lymphadenopathy Lungs: Normal breath sound, no adventitious sound Abdomen: Soft, not tender CV: Normal S1 S2, no murmur, no rub, pulse regular Skin: No rash, no malar rash, no telangiectasia, no pitting nail/onycholysis, no gross periungual telangiectasia Neuro: Grossly intact, motor power 5 all Joints LEFT Shoulder Full ROM, not tender Elbow Full ROM, not tender, not swollen Wrist Full ROM, not tender, not swollen 2nd MCP Not tender, not swollen 3rd MCP Not tender, not swollen 4th MCP Not tender, not swollen 5th MCP Not tender, not swollen 1st IP Not tender, not swollen 2nd PIP Not tender, not swollen 3rd PIP Not tender, not swollen 4th PIP Not tender, not swollen 5th PIP Not tender, not swollen 2nd DIP Not tender, not swollen 3rd DIP Not tender, not swollen 4th DIP Not tender, not swollen 5th DIP Not tender, not swollen Hip Full ROM Knee Full ROM, not tender, no effusion Ankle Not tender, not swollen Squeezing test Negative RIGHT Shoulder Full ROM, not tender Elbow Full ROM, not tender, not swollen Wrist Full ROM, not tender, not swollen 2nd MCP Not tender, not swollen 3rd MCP Not tender, not swollen 4th MCP Not tender, not swollen 5th MCP Not tender, not swollen 1st IP Not tender, not swollen 2nd PIP Not tender, not swollen 3rd PIP Not tender, not swollen 4th PIP Not tender, not swollen 5th PIP Not tender, not swollen 2nd DIP Not tender, not swollen 3rd DIP Not tender, not swollen 4th DIP Not tender, not swollen 5th DIP Not tender, not swollen Hip Full ROM Knee Full ROM, not tender, no effusion Ankle Not tender, not swollen Squeezing test Negative Impression: Seronegative rheumatoid arthritis Long-term use of hydroxychloroquine She is in remission today. Physical exam does not reveal any evidence of synovitis. I will obtain surveillance blood work today. I will continue hydroxychloroquine monotherapy. Recommendations/Plan Plan discussed with patient Return Visit: Follow up zoom call March 08 at 4.30 I spent a total of 30 minutes on the date of the service which included preparing to see the patient, [id number] patient care, completing clinical documentation, obtaining and/or reviewing separately obtained history, performing a medically appropriate examination, counseling and educating the pat ient/family/caregiver, and ordering medications, tests, or procedures. Mariajose Reynoso MD Referring Provider: PCP: Sina Vanegas MD Answers submitted by the patient for this visit: Review of Systems Rheumatology (Submitted on 09/05/2023) Fever : No Recent unintentional weight change: No Eye pain: No Eye redness: No Vision Disturbance: No Eye Dryness: No Nosebleeds: No Sores in your mouth: No Trouble Swallowing: No Dry Mouth: No Chest pain: No Leg Swelling: No A cough: No Shortness of breath: No Pain with breathing: No Heartburn: No Abdominal pain: No Diarrhea: Yes Black tarry stools: No Blood in urine: No Pain or burning with urination: No Joint pain or stiffness: Yes Muscle weakness: No Muscle aches: Yes Joint swelling: Yes Morning Stiffness in Joints: Yes A rash: No Skin Color Changes: No Hair Loss: No Nail Changes: No Headaches: Yes Numbness: Yes Memory Loss: No Swollen Glands: No documented in this encounterC[facility] Miscellaneous Notes* Telephone Encounter - Nan Breen - 08/04/2023 12:36 PM EDT Patient has been identified by name and date of : Yes Last office visit in this department: 05/23/2023 RX INSTRUCTIONS: Patient aware RX will be sent to pharmacy on file. Patient phones requesting refills as follows: Requested Prescriptions Pending Prescriptions Disp Refills sertraline (ZOLOFT) 100 mg tablet 90 tablet 1 Sig: Take 1 tablet by mouth once daily. Pt would like a call when it is signed and sent over please. Please review and advise. Nan Breen documented in this encounterC[facility]07-14-[facility] History of Present illness Narrative* Cristian Lim RT(R) - 05/26/2023 12:00 PM EDT Radiology Service Progress Note PATIENT NAME: Alona Rodrigez DATE OF SERVICE: May 26, 2023 TIME: 12:48 PM PATIENT IDENTITY VERIFICATION COMPLETED USING TWO (2) IDENTIFIERS: Name and Date of confirmedby patient verbally. FALL SCREENING: Has the patient had 2 falls in the last year or 1 fall with injury or currently using an Ambulatory Assistive Device (Walker, Cane, Wheelchair, Crutches, etc.)? No PATIENT GENDER DATA: Female. status: : No status: NO. PATIENT RELEVANT IMPLANT DATA REVIEWED: Not Applicable RADIOLOGY DEPARTMENT: General X-ray: Exam(s) Completed: Lower Extremity X- Ray(s): Knee, AP / LAT Bilateral and Ankle, Bilateral Upper Extremity X-Ray(s): Wrist, bilateral and Hand, bilateral PERIPHERAL IV DATA: Not applicable SIGNED BY: RT Abida(R) May 26, 2023 12:48 PM documented in this encounterC[facility]07-14-[facility]23 History of Present illness Narrative* Mariajose Reynoso MD - 05/26/2023 11:06 AM EDT Alona Rodrigez May 26, 2023 Chief Complaint: Patient presents with: Joint Pain HPI:Alona Rodrigez is a 47 year old female who presents with joint pain. Ms. Rodrigez reports that about 10 years ago she was diagnosed with inflammatory arthritis. She reported at the time, experiencing significant bilateral knee pain and swelling, as well as intermittent hip tightness. Labs were checked and at that time, CRP/ESR were elevated, but KISHAN and RF were neg ative. She was told that if her symptoms worsened, she could be seen by a dermatology physician, however her symptoms were generally manageable so she did not present. About two years ago, she developed progressively worsening joint disease. She endorses joint pain, swelling, tightness of her shoulders, elbows, wrists, fingers, knees, and toes. The worst joints are her toes and fingers. She states that her joint pain/stiffness migrates from one joint to anotherbut her toes are basically always stiff. She endorses morning stiffness that lasts at least 30- 60 minutes, improves with activity. She denies any redness or erythema to her joints. Sometimes the painis so severe that is limits her ability to walk/complete ADLs. This was the case about two weeks ago, when she had severe joint stiffness and pain and could not walk. Her PCP prescribed a course of Me loxicam (that she began 4 days ago) and checked bloodwork. KISHAN positive, RF negative, CRP elevated. She reports that she has never taken prednisone for joint issues, has never tried plaquenil. Usually, her joint symptoms are managed with heat/ice or the occasional ibuprofen. She otherwise denies any rashes, photosensitivity, eye pain, eye redness, changes to vision, mouth ulcers, dysphagia, odoynphoagia, shortness of breath, pleuritic pain, chest pain, blood in stool, melena, weakness, hair loss, nail changes, Raynaud's phenomenon, hypermobility. She describes her energy levels as alright. Family hx: - cousin w/ lupus - otherwise none Pain: No 0 on a scale of 0 to 10 Data: Serology: CRP: No results found for: CCPABG RF: Rheumatoid Factor (IU/mL) Date Value 05/23/2023 12 03/12/2010 9 ESR: Sed Rate, Westergren (mm/hr) Date Value 05/23/2023 34 CRP CRP (mg/dL) Date Value 05/23/2023 2.2 Quantiferon:No components found for: QTBA Imaging Completed: None Treatment: DMARDS: no DMARDS Failed: no NSAID'S: no Glucocorticoids: no PAST MEDICAL HISTORY Diagnosis Date Abnormal Pap smear and cervical HPV (human papillomavirus) colp 05/2010 BRANDI 1 Depression PAST SURGICAL HISTORY Procedure Laterality Date DILATION & CURETTAGE DX&/THER NONOBSTETRIC EGD 02/01/2021 Social History Tobacco Use Smoking status: Never Smokeless tobacco: Never Substance Use Topics Alcohol use: Yes Comment: Occasionally Drug use: No Health Maintenance: COLORECTAL CANCER SCREENING Never done Immunization History Administered Date(s) Administered COVID-19 original vaccine, age 12+ yr, monovalent ([employer] - PURPLE TOP) 12/23/2020 11/27/2021 diphtheria tetanus pertussis (DTaP) vaccine, pediatric (INFANRIX) 06/13/2009 influenza (IIV4) vaccine, age 6 mo - 64 yr, quadrivalent, PF (AFLURIA, FLUARIX, FLULAVAL, FLUZONE) 09/14/2021 08/18/2022 influenza (ccIIV4) vaccine, age 6+ mo, quadrivalent, PF (FLUCELVAX) 09/28/2020 Current Outpatient Medications Medication Sig Dispense Refill meloxicam (MOBIC) 15 mg tablet Take 1 tablet by mouth once daily. With food. 30 tablet 2 sertraline (ZOLOFT) 100 mg tablet Take 1 tablet by mouth once daily. 90 tablet 1 omeprazole (PRILOSEC) 20 mg capsule Take 1 capsule by mouth once daily. 90 capsule 3 Etonogestrel-Ethinyl Estradiol (NUVARING) 0.12-0.015 mg/24 hr vaginal ring Insert vaginally for 3 weeks then replace 2 Each 9 No current facility-administered medications for this visit. ALLERGIES No Known Allergies Physical Exam: BP 133/74 Pulse 72 Temp (Src) 98.4 (Temporal) Ht 5' 3.386 (1.61m) Wt 168 lb 14.4 oz (76.6kg) LMP 04/06/2016 BMI 29.56 kg/(m^2). Physical Exam: APPEARANCE Well appearing, alert, in no acute distress, well- hydrated, well nourished. EYES PERRLA, conjunctiva and sclera normal. EARS External ears normal, canals clear NOSE/SINUS Nares normal. Septum midline. Mucosa normal. No drainage or sinus tenderness. THROAT normal, no erythema NECK Supple, no adenopathy HEART RRR with normal S1 and S2, no murmurs, no gallops, no JVD appreciated LUNG clear to auscultation EXTREMITIES No edema NEURO Awake, alert and oriented x 3, Cranial nerves II-XII grossly intact, Normal gait, and No involuntary motions. SKIN Skin color, texture, turgor normal, no suspicious rashes or lesions MSK Exam: Upper extremities: Shoulders: Full ROM in all directions, no tenderness to palpation. No swelling or effusion. Elbows: Full ROM in flexion and extension. R elbow with effusion and swelling . No tenderness to palpation to the joint line, olecranon, medial or lateral epicondyles. Wrists: Full ROM in all lara. No swelling or synovitis. No pain with pronation/supination. No tenderness to palpation Hands: Full ROM in flexion and extension. Full turbine inspector strength. R 3rd, 4th, 5th MCP with swelling andtenderness. 4th PIP with swelling and tenderness. L 2nd, 3rd MCP with swelling and tenderness, 3rd PIP with tenderness. Lower extremities: Hips: Full ROM without pain. No tenderness to palpation along greater trochanter, gluteal fossa, orpiriformis. Knees: Full ROM in flexion and extension. L knee with swelling and effusion present. No tenderness to palpation. Ankles: Full ROM in all lara. No swelling or effusion. No tenderness to palpation along the jointline, medial/lateral malleolus, ATFL, PTFL, CFL, or Achilles Tendon. Feet: Full ROM in toe flexion/extension. No effusion. Negative squeeze test. Spine: Cervical spine: No visible abnormalities. Full ROM. Thoracic spine: No visible abnormalities. Lumbar spine: No visible abnormalities. Full ROM. SI Joints: No tenderness to palpation. Impression/Plan Overall, Alona Rodrigez's presentation of polyarticular migratory arthritis with small joint involvement, prolonged morning stiffness, and positive KISHAN but negative RF is most consistent with seronegative rheumatoid arthritis. Less likely considerations with the positive KISHAN include lupus, Sjorgen's, scleroderma, and connective tissue disorders, however the patient does not endorse any othersymptoms that would be concerning for these disease processes. Recommend checking a CCP Ab as this is more specific for RA. Also, given her she has likely had this for at least 10 years, it would be beneficial to obtain plain films to assess for erosive disease. Plan: - XR bilateral wrists, fingers, knees, ankles, feet - CCP Ab - C3, C4, KISHAN by ABBY - Hepatitis panel (in case methotrexate therapy is initiated) Return Visit: 06/05 virtual to discuss results Jessica Maher MD PGY-2 Internal Medicine 05/26/23, 3:30 PM Attending attestation note I saw this patient along with Dr. Maher. I personally performed physical examination and discussedplan of care with the patient. The note has been amended by me and I confirm the accuracy of the history, physical findings, assessment and plan. 47 yo female present with polyarthralgia. Characteristics of her joint pain sounds inflammatory to me. Exam show swelling and tenderness in several joints especially in her hands. High suspicion for rheumatoid. We will obtain a comprehensive set of serologies and x-rays. We will do a Zoom call to discuss the results 06/05. I spent a total of 50 minutes on the date of the service which included preparing to see the patient, [id number] patient care, completing clinical documentation, obtaining and/or reviewing separately obtained history, performing a medically appropriate examination, counseling and educating the pat ient/family/caregiver, and ordering medications, tests, or procedures. Mariajose Reynoso MD Attending Centralized Traffic Control Operator documented in this encounterC[facility]07-11-[facility] History of Present illness Narrative* Sina Vanegas MD - 05/23/2023 2:20 PM EDT Patient presents with: Arthritis HPI: Patient presents today for office visit for Arthritis pain. She states many years ago had work-up for inflammatory arthritis. It has increasingly gotten worse.Debilitating at times over last 2 weeks. Never saw rheum. Had minimally elevated sed rate in the past. Was coming in for labs. It appears lab did not draw everything. All joints bothersome. Feet/ankles/knees/hands/fingers/wrists/elbows. Has numbness in hands in the median nerve distribution. All come and goes. Joints have been worse over the last two weeks. Has noted her knee was swollen Feet and ankles were bothering her. Her hands often bother her. Discomfort is coming and going. No redness or warmth. Has dry eyes. No issues swallowing. No family hx of rheumatoid arthritis. No rashes. Sertraline is working well. No issues. No heartburn. MEDICATIONS: Current Outpatient Medications Medication Sig sertraline (ZOLOFT) 100 mg tablet Take 1 tablet by mouth once daily. omeprazole (PRILOSEC) 20 mg capsule Take 1 capsule by mouth once daily. Etonogestrel-Ethinyl Estradiol (NUVARING) 0.12-0.015 mg/24 hr vaginal ring Insert vaginally for 3 weeks then replace No current facility-administered medications for this visit. ALLERGIES: ALLERGIES No Known Allergies PAST MEDICAL HISTORY Diagnosis Date Abnormal Pap smear and cervical HPV (human papillomavirus) colp 05/2010 BRANDI 1 Depression PAST SURGICAL HISTORY Procedure Laterality Date DILATION & CURETTAGE DX&/THER NONOBSTETRIC EGD 02/01/2021 FAMILY HISTORY Problem Relation Age of Onset None Mother Cancer Father Pre cancer Moles Cervical Cancer Sister Resolved Diabetes Maternal Grandmother Heart Maternal Grandmother Hypertension Maternal Grandmother other (Other) Paternal Grandmother macular degeneratin.iddm,tias other (Other) Paternal Grandfather macular degeneration, Colon Cancer Paternal Grandfather Diabetes Maternal Uncle other (Macular Degeneration) Paternal Uncle Stroke Paternal Uncle other (MALIGNANT MELANOMA) Paternal Uncle PATERNAL AUNT other (Macular Degeneration) Other PGUNCLE Social History Tobacco Use Smoking status: Never Smokeless tobacco: Never Substance Use Topics Alcohol use: Yes Comment: Occasionally Drug use: No Reviewed current medications, allergies, past medical history, surgical history, family history andsocial history today. REVIEW OF SYSTEMS No shortness of breath. No new chest pain. All other reviewed and negative other than HPI. HEALTH MAINTENANCE: Reviewed health maintenance issues today and recommended the following in detail. COLORECTAL CANCER SCREENING-discussed. Has an appt placed. LIPID SCREEN due on 04/21/2022 VITALS: BP 132/84 Pulse 77 Ht 161 cm (5' 3.39) Wt 75 kg (165 lb 6.4 oz) LMP 04/06/2016 (Approximate) SpO2 97% BMI 28.94 kg/m Last 4 Encounter Wt Readings: Date: Wt: 04/20/2023 75.3 kg (166 lb) 01/31/2022 68.9 kg (151 lb 12.8 oz) 11/01/2021 68.5 kg (151 lb) 01/18/2021 65 kg (143 lb 3.2 oz) PHYSICAL EXAMINATION: General appearance: Well appearing, alert, in no acute distress, well-hydrated, well nourished. Skin: Skin color, texture, turgor normal, no suspicious rashes or lesions Head: Normocephalic, no masses, lesions, tenderness or abnormalities Eyes: Anicteric sclera. Pupils are equally round and reactive to light. Extraocular movements are intact. Ears: External ears normal, canals clear Lungs: Lungs clear to auscultation. No wheezing, rhonchi, rales Heart: RRR without murmur, gallop, or rubs. No ectopy Abdomen: Normal abdominal exam, Abdomen soft, non-tender. Bowel sounds normal. No masses, organomegaly Extremities: No deformities, edema, skin discoloration, clubbing or cyanosis. Good capillary refill. Positive phalens. at wrist. Tracing bracing of the hands. Musculoskeletal: No joint swelling, deformity, or tenderness Peripheral pulses: Normal Neuro: Negative. ASSESSMENT/PLAN: 1. Panic disorder - ICD9: 300.01, ICD10: F41.0 (primary diagnosis) - continue meds. 2. Arthralgia, unspecified joint - ICD9: 719.40, ICD10: M25.50 - consider rheum - Discussed risks and benefits of new medication with the patient. Advised them to call if any sideeffects or questions. - await meds. - MELOXICAM 15 MG TABLET 3. GERD without esophagitis - ICD9: 530.81, ICD10: K21.9 - stable Sina Vanegas MD documented in this encounterC[facility]06-[facility] History of Present illness Narrative* Sina Vanegas MD - 04/20/2023 3:01 PM EDT Patient presents with: Physical HPI: Patient presents today for office visit for a yearly physical. Psych: overall doing well. No issues with meds. Feels they are working quite well. Using prilosec regularly. No dysphagia. MEDICATIONS: Current Outpatient Medications Medication Sig sertraline (ZOLOFT) 100 mg tablet Take 1 tablet by mouth once daily. omeprazole (PRILOSEC) 20 mg capsule Take 1 capsule by mouth once daily. Etonogestrel-Ethinyl Estradiol (NUVARING) 0.12-0.015 mg/24 hr vaginal ring Insert vaginally for 3 weeks then replace No current facility-administered medications for this visit. ALLERGIES: ALLERGIES No Known Allergies PAST MEDICAL HISTORY Diagnosis Date Abnormal Pap smear and cervical HPV (human papillomavirus) colp 05/2010 BRANDI 1 Depression PAST SURGICAL HISTORY Procedure Laterality Date DILATION & CURETTAGE DX&/THER NONOBSTETRIC EGD 02/01/2021 FAMILY HISTORY Problem Relation Age of Onset None Mother Cancer Father Pre cancer Moles Cervical Cancer Sister Resolved Diabetes Maternal Grandmother Heart Maternal Grandmother Hypertension Maternal Grandmother other (Other) Paternal Grandmother macular degeneratin.iddm,tias other (Other) Paternal Grandfather macular degeneration, Colon Cancer Paternal Grandfather Diabetes Maternal Uncle other (Macular Degeneration) Paternal Uncle Stroke Paternal Uncle other (MALIGNANT MELANOMA) Paternal Uncle PATERNAL AUNT other (Macular Degeneration) Other PGUNCLE Social History Tobacco Use Smoking status: Never Smokeless tobacco: Never Substance Use Topics Alcohol use: Yes Comment: Occasionally Drug use: No Reviewed current medications, allergies, past medical history, surgical history, family history andsocial history today. REVIEW OF SYSTEMS RESPIRATORY: Negative for cough, hemoptysis, wheezing, COPD, dyspnea or shortness of breath CARDIOVASCULAR: has chest pain when lying on her back to the left of the sternum. Happens when after laying for 10 minutes and when she moves over it goes away. For under year. No trauma. No chest pain with exertion. No new palpitations-has had for years. No edema. GI: Negative for change in bowel habit : No history of dysuria, frequency or incontinence SKIN: Negative for lesions, rash, and itching All other reviewed and negative other than HPI. HEALTH MAINTENANCE: Reviewed health maintenance issues today and recommended the following in detail. HEPATITIS B(1 of 3 - 3-dose series) Never done HEPATITIS C SCREENING Never done HIV SCREENING Never done COLORECTAL CANCER SCREENING Never done DTAP,TDAP,TD(2 - Tdap) due on 06/13/2019 LIPID SCREEN due on 04/21/2022 VITALS: BP 130/78 Pulse 86 Resp 16 Ht 161 cm (5' 3.39) Wt 75.3 kg (166 lb) LMP 04/06/2016 (Approximate) SpO2 99% BMI 29.05 kg/m Last 4 Encounter Wt Readings: Date: Wt: 04/20/2023 75.3 kg (166 lb) 01/31/2022 68.9 kg (151 lb 12.8 oz) 11/01/2021 68.5 kg (151 lb) 01/18/2021 65 kg (143 lb 3.2 oz) PHYSICAL EXAMINATION: General appearance: Well appearing, alert, in no acute distress, well-hydrated, well nourished. Skin: three tiny hemangiomas on stomach. Red flags for re-assessment reviewed with patient in detail. Head: Normocephalic, no masses, lesions, tenderness or abnormalities Eyes: Anicteric sclera. Pupils are equally round and reactive to light. Extraocular movements are intact. Ears: External ears normal, canals clear Nose/Sinuses: Nares normal, septum midline, mucosa normal, no drainage or sinus tenderness Oropharynx: Lips, mucosa, and tongue normal, teeth and gums normal, oropharynx normal Neck: Supple, no adenopathy; thyroid symmetric, normal size, no bruits Lungs: Lungs clear to auscultation. No wheezing, rhonchi, rales Heart: RRR without murmur, gallop, or rubs. No ectopy Abdomen: Normal abdominal exam, Abdomen soft, non-tender. Bowel sounds normal. No masses, organomegaly Extremities: No deformities, edema, skin discoloration, clubbing or cyanosis. Good capillary refill. Musculoskeletal: No joint swelling, deformity, or tenderness Peripheral pulses: Normal Neuro: Gait normal. Reflexes normal and symmetric. Sensation grossly intact. ASSESSMENT/PLAN: 1. Well adult exam - ICD9: V70.0, ICD10: Z00.00 (primary diagnosis) - Counseled on healthy diet and regular exercise - Calcium intake with supplements or by diet of 1000 mg/day for under 50, 1200- 1500 mg/day for 50+ - LIPID PANEL BASIC - CBC + DIFF - COMP METABOLIC PANEL - VITAMIN D 25 HYDROXY 2. Panic disorder - ICD9: 300.01, ICD10: F41.0 - follow progress. - TSH BLD 3. Weight gain - ICD9: 783.1, ICD10: R63.5 - as above. Discussed weight gain. - TSH BLD 4. Screening for colon cancer - ICD9: V76.51, ICD10: Z12.11 - CONSULT TO GENERAL SURGERY Sina Vanegas documented [facility] encounterC[facility] History of Present illness Narrative* Janis Gregorioemily Leonardo - 03/02/2023 1:59 PM EDT POPULATION HEALTH NAVIGATION OUTREACH Action/FYI Pt overdue for office visit. Left detailed message. Patient Identified by Name and : YES, via phone Outreach Outcome/Action Unable to reach patient: Left message Did you use a PCP flex slot to schedule this appointment? No Reason for Outreach Care Gap or Scheduling/Wellness visits Payer: Payor: [employer] / Plan: BLUE CARD PPO OOS / Product Type: PPO / Care Gap Reviewed:: Follow-up appointment Breast Cancer screening Colorectal Cancer Screening Reminder: Reminder note to check Health Maintenance for items below Health Maintenance items due: HEPATITIS B(1 of 3 - 3-dose series) Never done HEPATITIS C SCREENING Never done HIV SCREENING Never done COLORECTAL CANCER SCREENING Never done DTAP,TDAP,TD(2 - Tdap) due on 06/13/2019 COVID-19 VACCINE(3 - Booster for Pfizer series) due on 01/22/2022 PAP TESTING due on 04/19/2022 HPV TESTING due on 04/19/2022 LIPID SCREEN due on 04/21/2022 MAMMOGRAM due on 09/13/2022 Navigation Signature: Janis Ayala Ma March 02, 2023 1:59 PM documented in this encounterC[facility] Miscellaneous Notes* Telephone Encounter - Rene Willoughby LPN - 01/30/2023 2:34 PM EDT Patient phones requesting refills as follows: Requested Prescriptions Pending Prescriptions Disp Refills sertraline (ZOLOFT) 100 mg tablet 90 tablet 1 Sig: Take 1 tablet by mouth once daily. CHARLEY 04/19/22 NOV no upcoming appt Please review and advise. Rene Willoughby LPN documented in this encounterC[facility]02-07-[facility]23 Miscellaneous Notes* Telephone Encounter - Lissette Soni Ma - 12/20/2022 1:09 PM EST Left vm for patient that when rx is written its for generic and name brand unless requested name brand only by patient. Lissette Soni Ma * Telephone Encounter - Rochelle Price - 12/20/2022 1:02 PM EST Patient states that with her new insurance, generic medication will have 0 copay. documented in this encounterC[facility]02-07-[facility]23 Miscellaneous Notes* Telephone Encounter - Rachel Moura - 12/20/2022 12:49 PM EST Patient has been identified by name and date of : Yes Last office visit in this department: Visit date not found RX INSTRUCTIONS: Patient aware RX will be sent to pharmacy. No need to notify patient. Patient phones requesting refills as follows: Requested Prescriptions Pending Prescriptions Disp Refills omeprazole (PRILOSEC) 20 mg capsule 90 capsule 3 Sig: Take 1 capsule by mouth once daily. Please review and advise. Rachel Moura documented in this encounterC[facility]11-11-2022 Miscellaneous Notes* Telephone Encounter - Ann Marie Soria MA - 09/23/2022 8:42 AM EST Patient has been identified by name and date of : Yes Requested Prescriptions Pending Prescriptions Disp Refills sertraline (ZOLOFT) 100 mg tablet 90 tablet 1 Sig: Take 1 tablet by mouth once daily. RX INSTRUCTIONS: Patient aware RX will be sent to pharmacy. No need to notify patient. Ann Marie Soria MA Charley: 04/2022 No appointment scheduled Last refill: 04/2022 documented in this encounterC[facility]06-07-2022 Instructions* Patient Instructions* Sudha Mcrae APRN.CNP - 04/19/2022 11:42 AM EDT 1. Increase the sertraline to 100 mg daily. 2. Recheck in 1 month. Sooner if needed. documented in this encounterC[facility]06-07-2022 History of Present illness Narrative* Sudha Mcrae APRN.CNP - 04/19/2022 11:27 AM EDT This is a 46 year old female who presents today with: Patient presents with: Recheck: follow up HISTORY OF PRESENT ILLNESS: Alona Rodrigez is a 46 year old female. Patient presents with: Recheck: follow up Pt presents today for follow-up. Refers that her anxiety has been worse. Denies depression. Refers hard time with social events. She has tried the hydroxyzine X 3 but didn't really notice an effect. 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 She has never been a good sleeper. She denies any SI/HI. She is interested in increasing the sertraline. She reports that she has been on and off the sertraline X 17 years at varying doses. She did try wellbutrin for a short time, but did not notice any benefit from this. She also reports a plugged left ear. No pain. Feels like head is in a bucket. Denies problems w/ allergies. PAST MEDICAL HISTORY: PAST MEDICAL HISTORY Diagnosis Date Abnormal Pap smear and cervical HPV (human papillomavirus) colp 05/2010 BRANDI 1 Depression PAST SURGICAL HISTORY Procedure Laterality Date DILATION & CURETTAGE DX&/THER NONOBSTETRIC EGD 02/01/2021 ALLERGIES Patient has no known allergies. MEDICATIONS Current Outpatient Medications Medication Sig sertraline (ZOLOFT) 50 mg tablet Take 1 tablet by mouth once daily. omeprazole (PRILOSEC) 20 mg capsule Take 1 capsule by mouth once daily. Etonogestrel-Ethinyl Estradiol (NUVARING) 0.12-0.015 mg/24 hr vaginal ring Insert vaginally for 3 weeks then replace No current facility-administered medications for this visit. FAMILY HISTORY Problem Relation Age of Onset Cancer Father Pre cancer Moles None Mother Diabetes Maternal Grandmother Heart Maternal Grandmother Hypertension Maternal Grandmother other (Other) Paternal Grandmother macular degeneratin.iddm,tias other (Other) Paternal Grandfather macular degeneration, Cervical Cancer Sister Resolved other (Macular Degeneration) Paternal Uncle other (Macular Degeneration) Other PGUNCLE Diabetes Maternal Uncle Stroke Paternal Uncle other (MALIGNANT MELANOMA) Paternal Uncle PATERNAL AUNT Social History Tobacco Use Smoking status: Never Smoker Smokeless tobacco: Never Used Substance Use Topics Alcohol use: Yes Comment: Occasionally Drug use: No EXAM: BP 136/92 Pulse 80 Resp 18 LMP 04/06/2016 (Approximate) SpO2 99% PHYSICAL EXAM: General Appearance: Well appearing, alert, in no acute distress, well-hydrated, well nourished.. Skin: Skin color, texture, turgor normal, no suspicious rashes or lesions. Head: Normocephalic, no masses, lesions, tenderness or abnormalities. Eyes: Anicteric sclera. Pupils are equally round and reactive to light. Extraocular movements are intact. . Ears: External ears normal, canals clear, Positive findings: R TM: obscured by cerumen Moderate, L TM: air/fluid interface visualized and bulging. Neurologic: Gait normal. ASSESSMENT/PLAN: 1. ERICKSON (generalized anxiety disorder) - ICD9: 300.02, ICD10: F41.1 (primary diagnosis) Will go ahead and increase sertraline. She has some 50 mg tabs left -- she will take 1 1/2 (75 mg) for a few days before increasing to lcy904 mg. Does not think that she needs anything else for break through anxiety at this time. Recheck in 1 month. - SERTRALINE 100 MG TABLET 2. Fluid level behind tympanic membrane of left ear - ICD9: 381.4, ICD10: H65.92 Start claritin D and flonase. Discussed routine course of ibuprofen. Discussed mechanical methods for opening eustachian tube. Notify provider if no improvement. Could consider course of steroids vs referral to ent. Discussed treatment plan and patient voices understanding. Patient's questions answered appropriately. Medications and potential side effects were discussed and patient voices understanding. Return to the office as scheduled or as needed for worsening/no improvement. Sudha Mcrae APRN.LINE MANAGER documented in this encounterC[facility]05-02-[facility]22 History of Present illness Narrative* Sina Vanegas MD - 03/14/2022 6:56 PM EDT Patient presents with: Follow Up HPI:This Team Access Model visit is a virtual encounter. It required patient- provider interaction for the medical decision making as documented below. Patient was offered a virtual/telemedicine appointment in lieu of an office visit due to recommendations to reduce patient exposure to COVID-19. Patient is aware of limitations of performing the visit without a face to face visit in the office setting and agrees. Added wellbutrin. Had one day of energy and felt a little better. Still fatigued. Is overall better than it was. Is more even Not sleeping well but that is not new. No suicidal ideation. We are not convinced she is improving with wellbutrin. Her panic and anxiety symptoms are improving. 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 Is comfortable on the lower dose. Has not had to use hydroxyzine. See previous ov on 01/31, copied and pasted: Feels better but not perfect. No side effects. Still a lot of anxiety. Worrying in situations like get togethers etc. Issues with interacting with others. Always a poor sleeper Has little energy. No improvement. Has issues getting out of bed. Fatigue is the current biggest issue. Does not really feel she is depressed. Is a teacher and at times has to force herself to get out of bed. MEDICATIONS: Current Outpatient Medications Medication Sig buPROPion XL (WELLBUTRIN XL) 150 mg 24 hr tablet Take 1 tablet by mouth once daily. sertraline (ZOLOFT) 50 mg tablet Take 1 tablet by mouth once daily. omeprazole (PRILOSEC) 20 mg capsule Take 1 capsule by mouth once daily. hydrOXYzine pamoate (VISTARIL) 25 mg capsule Take 1 capsule by mouth twice daily as needed for anxiety. Etonogestrel-Ethinyl Estradiol (NUVARING) 0.12-0.015 mg/24 hr vaginal ring Insert vaginally for 3 weeks then replace No current facility-administered medications for this visit. ALLERGIES: ALLERGIES No Known Allergies PAST MEDICAL HISTORY Diagnosis Date Abnormal Pap smear and cervical HPV (human papillomavirus) colp 05/2010 BRANDI 1 Depression PAST SURGICAL HISTORY Procedure Laterality Date DILATION & CURETTAGE DX&/THER NONOBSTETRIC EGD 02/01/2021 FAMILY HISTORY Problem Relation Age of Onset Cancer Father Pre cancer Moles None Mother Diabetes Maternal Grandmother Heart Maternal Grandmother Hypertension Maternal Grandmother other (Other) Paternal Grandmother macular degeneratin.iddm,tias other (Other) Paternal Grandfather macular degeneration, Cervical Cancer Sister Resolved other (Macular Degeneration) Paternal Uncle other (Macular Degeneration) Other PGUNCLE Diabetes Maternal Uncle Stroke Paternal Uncle other (MALIGNANT MELANOMA) Paternal Uncle PATERNAL AUNT Social History Tobacco Use Smoking status: Never Smoker Smokeless tobacco: Never Used Substance Use Topics Alcohol use: Yes Comment: Occasionally Drug use: No Reviewed current medications, allergies, past medical history, surgical history, family history andsocial history today. REVIEW OF SYSTEMS All other reviewed and negative other than HPI. VITALS: LMP 04/06/2016 (Approximate) Last 4 Encounter Wt Readings: Date: Wt: 01/31/2022 68.9 kg (151 lb 12.8 oz) 11/01/2021 68.5 kg (151 lb) 01/18/2021 65 kg (143 lb 3.2 oz) 11/22/2017 68.4 kg (150 lb 12.8 oz) PHYSICAL EXAMINATION: Patient is alert and oriented during visit. Answers appropriately. ASSESSMENT/PLAN: 1. Anxiety with depression - ICD9: 300.4, ICD10: F41.8 - taper and stop wellbutrin over one week. Continue meds. Sina Vanegas RTO in six months and prn. documented in this encounterC[facility]03-21-[facility]22 History of Present illness Narrative* Sina Vanegas MD - 01/31/2022 3:01 PM EDT Patient presents with: F/U 3 Month HPI: Patient presents today for office visit for follow up. Feels better but not perfect. No side effects. Still a lot of anxiety. Worrying in situations like get togethers etc. Issues with interacting with others. Always a poor sleeper Has little energy. No improvement. Has issues getting out of bed. Fatigue is the current biggest issue. Does not really feel she is depressed. Is a teacher and at times has to force herself to get out of bed. Component Latest Ref Rng & Units 11/01/2021 Protein, Total 6.3 - 8.0 g/dL 7.3 Albumin 3.9 - 4.9 g/dL 4.4 Calcium 8.5 - 10.2 mg/dL 9.1 Bilirubin, Total 0.2 - 1.3 mg/dL 0.3 Alkaline Phosphatase 34 - 123 U/L 48 AST 13 - 35 U/L 13 Glucose 74 - 99 mg/dL 86 BUN 7 - 21 mg/dL 13 Creatinine 0.58 - 0.96 mg/dL 0.89 Sodium 136 - 144 mmol/L 143 Potassium 3.7 - 5.1 mmol/L 3.7 Chloride 97 - 105 mmol/L 107 (H) CO2 22 - 30 mmol/L 25 Anion Gap 9 - 18 mmol/L 11 ALT 7 - 38 U/L 10 eGFR- >60 eGFR-All Other Races . >60 TSH 0.270 - 4.200 uU/mL 2.170 Vitamin D 25 Hydroxy 31.0 - 80.0 ng/mL 41.6 Vitamin B12 232 - 1,245 pg/mL 248 MEDICATIONS: Current Outpatient Medications Medication Sig sertraline (ZOLOFT) 50 mg tablet Take 1 tablet by mouth once daily. omeprazole (PRILOSEC) 20 mg capsule Take 1 capsule by mouth once daily. hydrOXYzine pamoate (VISTARIL) 25 mg capsule Take 1 capsule by mouth twice daily as needed for anxiety. Etonogestrel-Ethinyl Estradiol (NUVARING) 0.12-0.015 mg/24 hr vaginal ring Insert vaginally for 3 weeks then replace No current facility-administered medications for this visit. ALLERGIES: ALLERGIES No Known Allergies PAST MEDICAL HISTORY Diagnosis Date Abnormal Pap smear and cervical HPV (human papillomavirus) colp 05/2010 BRANDI 1 Depression PAST SURGICAL HISTORY Procedure Laterality Date DILATION & CURETTAGE DX&/THER NONOBSTETRIC EGD 02/01/2021 FAMILY HISTORY Problem Relation Age of Onset Cancer Father Pre cancer Moles None Mother Diabetes Maternal Grandmother Heart Maternal Grandmother Hypertension Maternal Grandmother other (Other) Paternal Grandmother macular degeneratin.iddm,tias other (Other) Paternal Grandfather macular degeneration, Cervical Cancer Sister Resolved other (Macular Degeneration) Paternal Uncle other (Macular Degeneration) Other PGUNCLE Diabetes Maternal Uncle Stroke Paternal Uncle other (MALIGNANT MELANOMA) Paternal Uncle PATERNAL AUNT Social History Tobacco Use Smoking status: Never Smoker Smokeless tobacco: Never Used Substance Use Topics Alcohol use: Yes Comment: Occasionally Drug use: No Reviewed current medications, allergies, past medical history, surgical history, family history andsocial history today. REVIEW OF SYSTEMS Has chronic palpitations for years. Not necessarily worse. Wants to watch and see how does. All other reviewed and negative other than HPI. VITALS: BP 132/84 Pulse 80 Resp 16 Wt 68.9 kg (151 lb 12.8 oz) LMP 04/06/2016 (Approximate) BMI 26.47 kg/m Last 4 Encounter Wt Readings: Date: Wt: 01/31/2022 68.9 kg (151 lb 12.8 oz) 11/01/2021 68.5 kg (151 lb) 01/18/2021 65 kg (143 lb 3.2 oz) 11/22/2017 68.4 kg (150 lb 12.8 oz) PHYSICAL EXAMINATION: General appearance: Well appearing, alert, in no acute distress, well-hydrated, well nourished. Skin: Skin color, texture, turgor normal, no suspicious rashes or lesions Lungs: Lungs clear to auscultation. No wheezing, rhonchi, rales Heart: RRR without murmur, gallop, or rubs. No ectopy Abdomen: Normal abdominal exam, Abdomen soft, non-tender. Bowel sounds normal. No masses, organomegaly PSYCH:Affect normal. Normal speech. Normal eye contact ASSESSMENT/PLAN: 1. Panic disorder - ICD9: 300.01, ICD10: F41.0 (primary diagnosis) - continue meds. Add wellbutrin. Discussed risks and benefits of new medication with the patient. Advised them to call if any side effects or questions. - follow up in six weeks. 2. Anxiety with depression - ICD9: 300.4, ICD10: F41.8 3. Fatigue, unspecified type - ICD9: 780.79, ICD10: R53.83 Sina Vanegas RTO in six weeks and prn. [facility]* Diagnosis Panic disorder- Primary Panic disorder without agoraphobia Anxiety with depression Fatigue, unspecified type documented in this encounter [facility] note* Diagnosis Onset Date Resolution Status Elevated BP without diagnosis of hypertension [facility] Work Phone: Evaluation note* Diagnosis Anxiety with depression- Primary documented in this encounter [facility] note* Diagnosis ERICKSON (generalized anxiety disorder)- Primary Generalized anxiety disorder Fluid level behind tympanic membrane of left ear documented in this encounter [facility] noteNo assessment information availableWKettering Health [facility] Work Phone: Evaluation note* Diagnosis ERICKSON (generalized anxiety disorder) Generalized anxiety disorder documented in this encounter [facility] note* Diagnosis Encounter for screening mammogram for breast cancer documented in this encounter [facility] note* Diagnosis Well adult exam- Primary Routine general medical examination at a health care facility Panic disorder Panic disorder without agoraphobia Weight gain Abnormal weight gain Screening for colon cancer Special screening for malignant neoplasms, colon [facility] Diagnosis Arthralgia, unspecified joint- Primary [facility] Diagnosis Panic disorder- Primary Panic disorder without agoraphobia Arthralgia, unspecified joint GERD without esophagitis Esophageal reflux [facility]* Diagnosis Inflammatory arthritis- Primary Unspecified inflammatory polyarthropathy Polyarthralgia Pain in joint, multiple sites [facility]* Diagnosis Polyarthralgia Pain in joint, multiple sites [facility]* Diagnosis ERICKSON (generalized anxiety disorder) Generalized anxiety disorder [facility]* Diagnosis Seronegative rheumatoid arthritis (HCC)- Primary Rheumatoid arthritis Long-term use of hydroxychloroquine Encounter for long-term (current) use of other medications documented [facility]* Diagnosis Screening for colon cancer- Primary Special screening for malignant neoplasms, colon [facility]* Diagnosis ERICKSON (generalized anxiety disorder) Generalized anxiety disorder [facility]* Diagnosis ERICKSON (generalized anxiety disorder) Generalized anxiety disorder [facility] Diagnosis Seronegative rheumatoid arthritis (HCC)- Primary Rheumatoid arthritis Long-term use of hydroxychloroquine Encounter for long-term (current) use of other medications [facility]* Diagnosis Well adult exam- Primary Routine general medical examination at a health care facility ERICKSON (generalized anxiety disorder) Generalized anxiety disorder Seronegative rheumatoid arthritis (HCC) Rheumatoid arthritis Panic disorder Panic disorder without agoraphobia Moderate mixed hyperlipidemia not requiring statin therapy Chest wall pain Painful respiration [facility]* Diagnosis Seronegative rheumatoid arthritis (HCC) Rheumatoid arthritis [facility]* Diagnosis Chest wall pain Painful respiration [facility]* Diagnosis 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 Seronegative rheumatoid arthritis (HCC) Rheumatoid arthritis Psoriasis vulgaris Other psoriasis Long-term use of hydroxychloroquine Encounter for long-term (current) use of other medications documented [facility]* Diagnosis Encounter for screening mammogram for breast cancer documented [facility]* Diagnosis ERICKSON (generalized anxiety disorder) Generalized anxiety disorder [facility]* Diagnosis Onset Date Resolution Status Admit Date Pelvic pain acute July 02, 2025 2:35pm Encounter for routine gynecological examination noneactive July 02, 2025 2:35pm [place] [employer] Work Phone: Reason for referral (narrative)* Diagnostic Procedure Only (Routine) - Pending Review Specialty Diagnoses / Procedures Referred By Contac t Referred To Contact [facility] Diagnoses Encounter for screening mammogram for breast cancer Procedures JAMES SCREENING SCREENING MAMMOGRAPHY BI 2-VIEW BREAST INC CAD Sina Vanegas MD [address] [place] [address] [facility] [address] [place] [address] Referral ID Status Reason Start Date Expiration Date Visits Requested Visits Authorized [id number] Pending Review Auto-Generat ed Referral 11/25/2023 1 1 [facility] for referral (narrative)* Diagnostic Procedure Only (Routine) - Closed Specialty Diagnoses / Procedures Referred By Contac t Referred To Contact XR IMAGING Diagnoses Polyarthralgia Procedures XR KNEE LIMITED 2V AP/LAT BILATERAL RADIOLOGIC EXAMINATION KNEE 1/2 VIEWS Mariajose Reynoso MD [address] [place] [address] Xr Imaging Referral ID Status Reason Start Date Expiration Date V isits Requested Visits Authorized [id number] Closed Auto-Generate d Referral 05/26/2023 06/24/2024 1 1 * Diagnostic Procedure Only (Routine) - Closed Specialty Diagnoses / Procedures Referred By Contac t Referred To Contact XR IMAGING Diagnoses Polyarthralgia Procedures XR ANKLE GENERAL 3V AP/LAT/OBL BILATERAL RADEX ANKLE COMPLETE MINIMUM 3 VIEWS Mariajose Reynoso MD [address] [place], [place] [id number] Xr Imaging Referral ID Status Reason Start Date Expiration Date V isits Requested Visits Authorized [id number] Closed Auto-Generate d Referral 05/26/2023 06/24/2024 1 1 * Diagnostic Procedure Only (Routine) - Closed Specialty Diagnoses / Procedures Referred By Contac t Referred To Contact XR IMAGING Diagnoses Polyarthralgia Procedures XR HAND/WRIST SURVEY ARTHRITIS 1V PA BILATERAL JOINT SURVEY SINGLE VIEW 2 OR MORE JOINTS Mariajose Reynoso MD [address] [place], [place] [id number] Xr Imaging Referral ID Status Reason Start Date Expiration Date V isits Requested Visits Authorized [id number] Closed Auto-Generate d Referral 05/26/2023 06/24/2024 1 1 [facility] for referral (narrative)* Diagnostic Procedure Only (Routine) - Closed Specialty Diagnoses / Procedures Referred By Jyotiac t Referred To Contact XR IMAGING Diagnoses Polyarthralgia Procedures XR KNEE LIMITED 2V AP/LAT BILATERAL RADIOLOGIC EXAMINATION KNEE 1/2 VIEWS Mariajose Reynoso MD [address] [place], [place] [id number] Xr Imaging Referral ID Status Reason Start Date Expiration Date V isits Requested Visits Authorized [id number] Closed Auto-Generate d Referral 05/26/2023 06/24/2024 1 1 * Diagnostic Procedure Only (Routine) - Closed Specialty Diagnoses / Procedures Referred By Contac t Referred To Contact XR IMAGING Diagnoses Polyarthralgia Procedures XR ANKLE GENERAL 3V AP/LAT/OBL BILATERAL RADEX ANKLE COMPLETE MINIMUM 3 VIEWS Mariajose Reynoso MD [address] [place], [place] [id number] Xr Imaging Referral ID Status Reason Start Date Expiration Date V isits Requested Visits Authorized [id number] Closed Auto-Generate d Referral 05/26/2023 06/24/2024 1 1 * Diagnostic Procedure Only (Routine) - Closed Specialty Diagnoses / Procedures Referred By Contac t Referred To Contact XR IMAGING Diagnoses Polyarthralgia Procedures XR HAND/WRIST SURVEY ARTHRITIS 1V PA BILATERAL JOINT SURVEY SINGLE VIEW 2 OR MORE JOINTS Mariajose Reynoso MD [address] [place] [address] Xr Imaging Referral ID Status Reason Start Date Expiration Date V isits Requested Visits Authorized [id number] Closed Auto-Generate d Referral 05/26/2023 06/24/2024 1 1 [facility] for referral (narrative)* Outpatient Procedure (Routine) - Closed Specialty Diagnoses / Procedures Referred By Contac t Referred To Contact [facility] Diagnoses Screening for colon cancer Procedures COLONOSCOPY SCREENING COLONOSCOPY FLX DX W/COLLJ SPEC WHEN Irene George MD [address] [place] [address] [facility] [address] [place] [address] Referral ID Status Reason Start Date Expiration Date V isits Requested Visits Authorized [id number] Closed Auto-Generate d Referral 01/05/2024 11/12/2024 1 1 [facility] for referral (narrative)* Diagnostic Procedure Only (Routine) - Closed Specialty Diagnoses / Procedures Referred By Contac t Referred To Contact XR IMAGING Diagnoses Chest wall pain Procedures XR RIBS/CHEST 3V AP RIB/OBLS/CXR LEFT RADEX RIBS UNI W/POSTEROANT CH MINIMUM 3 VIEWS Sina Vanegas MD [address] [place] [address] [place] [id number] Referral ID Status Reason Start Date Expiration Date V isits Requested Visits Authorized [id number] Closed Auto-Generate d Referral 04/22/2024 05/22/2025 1 1 [facility] for referral (narrative)* Diagnostic Procedure Only (Routine) - Closed Specialty Diagnoses / Procedures [facility] To Contact XR IMAG[facility] Diagnoses Chest wall pain Procedures XR RIBS/CHEST 3V AP RIB/OBLS/CXR LEFT RADEX RIBS UNI W/POSTEROANT CH MINIMUM 3 VIEWS Sina Vanegas MD [address] [place] [address] [place] [address] Referral ID Status Reason Start Date Expiration Date V isits Requested Visits Authorized [id number] Closed Auto-Generate d Referral 04/22/2024 05/22/2025 1 1 [facility] for referral (narrative)* Diagnostic Procedure Only (Routine) - New Request Specialty Diagnoses / Procedures Referred By Raffaele elizondo Referred To Contact [facility] Diagnoses Encounter for screening mammogram for breast cancer Procedures JAMES SCREENING W CLAUDINE SCREENING DIGITAL BREAST TOMOSYNTHESIS BI SCREENING MAMMOGRAPHY BI 2-VIEW BREAST INC CAD Sina Vanegas MD [address] [place] [address] [facility] [address] [place] [address] Referral ID Status Reason Start Date Expiration Date Visits Requested Visits Authorized [id number] New Request Auto-Generat ed Referral 11/13/2024 12/13/2025 1 1 [facility] for referral (narrative)No reason for referral information availableD[facility] Services Work Phone: Reason for visit Narrative* Outpatient Procedure (Routine) - Closed Specialty Diagnoses / Procedures [facility] To Contact [facility] Diagnoses Screening for colon cancer Procedures COLONOSCOPY SCREENING COLONOSCOPY FLX DX W/COLLJ SPEC WHEN Irene George MD [address] [place] [address] [facility] [address] [place] [address] Referral ID Status Reason Start Date Expiration Date V isits Requested Visits Authorized [id number] Closed Auto-Generate d Referral 01/05/2024 11/12/2024 1 1 [facility] Diagnostic Procedure Only (Routine) - Closed Specialty Diagnoses / Procedures Referred By Contac t Referred To Contact XR IMAGING Diagnoses Chest wall pain Procedures XR RIBS/CHEST 3V AP RIB/OBLS/CXR LEFT RADEX RIBS UNI W/POSTEROANT CH MINIMUM 3 VIEWS Sina Vanegas MD [address] [place] [address] [place] [address] Referral ID Status Reason Start Date Expiration Date V isits Requested Visits Authorized [id number] Closed Auto-Generate d Referral 04/22/2024 05/22/2025 1 1 [facility] Advance Directives No Advanced Directives Records FoundDocuments on File Type Date 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 Advance Directive(s) Advance Directive(s) 02/01/2021 2:27 PM Advance Directive(s) 01/19/2021 3:56 PM Chief Complaint and Reason for Visit Chief Complaint Annual (TIMBER HEWER) BP CHECK bp check Reason for Visit Elevated BP without diagnosis of hypertension Chief Complaint SCREENING Chief Complaint Admit Date PELVIC PAIN March 05, 2025 1:1 2pm Annual (TIMBER HEWER) July 02, 2025 2: 35pm Reason for Visit Admit Date Pelvic pain July 02, 2025 2: 35pm Encounter for routine gynecological exam ination July 02, 2025 2:35pm Reason for Referral Specialty Diagnoses / Procedures Referred By Contac t Referred To Contact General Surgery Diagnoses Screening for colon cancer Procedures CONSULT TO GENERAL SURGERY OFFICE/OUTPATIENT NEW HIGH MDM 60-74 MINUTES Sina Vanegas MD [address] [place] [address] Referral ID Status Reason Start Date Expiration Date Visits Requested Visits Authorized [id number] Authorized PCP Requested Referral 04/20/2023 04/19/2024 1 1 Summary Purpose Family History No Family History Records FoundNo Family History Records Found Additional Source Comments Source Comments (unrecognize d section and content) In the event this informatio n is protected by the Federal Confidentiality of Alcohol and Drug Abuse Patient Records regulations: The Federal rules restrict any use of the information to criminally investigate or prosecute any alcohol or drug abuse patient.[facility] the event this information is protected by the Federal Confidentiality of Alcohol and Drug Abuse Patient Records regulations: The Federal rules restrict any use of the information to criminally investigate or prosecute any alcohol or drug abuse patient.[facility] the event this information is protected by the Federal Confidentiality of Alcohol and Drug Abuse Patient Records regulations: The Federal rules restrict any use of the information to criminally investigate or prosecute any alcohol or drug abuse patient.[facility] the event this information is protected by the Federal Confidentiality of Alcohol and Drug Abuse Patient Records regulations: The Federal rules restrict any use of the information to criminally investigate or prosecute any alcohol or drug abuse patient.[facility] the event this information is protected by the Federal Confidentiality of Alcohol and Drug Abuse Patient Records regulations: The Federal rules restrict any use of the information to criminally investigate or prosecute any alcohol or drug abuse patient.[facility] the event this information is protected by the Federal Confidentiality of Alcohol and Drug Abuse Patient Records regulations: The Federal rules restrict any use of the information to criminally investigate or prosecute any alcohol or drug abuse patient.[facility] the event this information is protected by the Federal Confidentiality of Alcohol and Drug Abuse Patient Records regulations: The Federal rules restrict any use of the information to criminally investigate or prosecute any alcohol or drug abuse patient.[facility] Hospital[facility] the event this information is protected by the Federal Confidentiality of Alcohol and Drug Abuse Patient Records regulations: The Federal rules restrict any use of the information to criminally investigate or prosecute any alcohol or drug abuse patient.[facility] Hospital[facility] the event this information is protected by the Federal Confidentiality of Alcohol and Drug Abuse Patient Records regulations: The Federal rules restrict any use of the information to criminally investigate or prosecute any alcohol or drug abuse patient.[facility] Hospital[facility] the event this information is protected by the Federal Confidentiality of Alcohol and Drug Abuse Patient Records regulations: The Federal rules restrict any use of the information to criminally investigate or prosecute any alcohol or drug abuse patient.[facility] Hospital[facility] the event this information is protected by the Federal Confidentiality of Alcohol and Drug Abuse Patient Records regulations: The Federal rules restrict any use of the information to criminally investigate or prosecute any alcohol or drug abuse patient.[facility] Hospital[facility] the event this information is protected by the Federal Confidentiality of Alcohol and Drug Abuse Patient Records regulations: The Federal rules restrict any use of the information to criminally investigate or prosecute any alcohol or drug abuse patient.[facility] HospitalIn the event this information is protected by the Federal Confidentiality of Alcohol and Drug Abuse Patient Records regulations: The Federal rules restrict any use of the information to criminally investigate or prosecute any alcohol or drug abuse patient.[facility] Hospital[facility] the event this information is protected by the Federal Confidentiality of Alcohol and Drug Abuse Patient Records regulations: The Federal rules restrict any use of the information to criminally investigate or prosecute any alcohol or drug abuse patient.[facility] Hospital[facility] the event this information is protected by the Federal Confidentiality of Alcohol and Drug Abuse Patient Records regulations: The Federal rules restrict any use of the information to criminally investigate or prosecute any alcohol or drug abuse patient.[facility] Hospital[facility] the event this information is protected by the Federal Confidentiality of Alcohol and Drug Abuse Patient Records regulations: The Federal rules restrict any use of the information to criminally investigate or prosecute any alcohol or drug abuse patient.[facility] HospitalIn the event this information is protected by the Federal Confidentiality of Alcohol and Drug Abuse Patient Records regulations: The Federal rules restrict any use of the information to criminally investigate or prosecute any alcohol or drug abuse patient.[facility] HospitalIn the event this information is protected by the Federal Confidentiality of Alcohol and Drug Abuse Patient Records regulations: The Federal rules restrict any use of the information to criminally investigate or prosecute any alcohol or drug abuse patient.[facility] HospitalIn the event this information is protected by the Federal Confidentiality of Alcohol and Drug Abuse Patient Records regulations: The Federal rules restrict any use of the information to criminally investigate or prosecute any alcohol or drug abuse patient.[facility] HospitalIn the event this information is protected by the Federal Confidentiality of Alcohol and Drug Abuse Patient Records regulations: The Federal rules restrict any use of the information to criminally investigate or prosecute any alcohol or drug abuse patient.[facility] HospitalIn the event this information is protected by the Federal Confidentiality of Alcohol and Drug Abuse Patient Records regulations: The Federal rules restrict any use of the information to criminally investigate or prosecute any alcohol or drug abuse patient.[facility] HospitalIn the event this information is protected by the Federal Confidentiality of Alcohol and Drug Abuse Patient Records regulations: The Federal rules restrict any use of the information to criminally investigate or prosecute any alcohol or drug abuse patient.[facility] HospitalIn the event this information is protected by the Federal Confidentiality of Alcohol and Drug Abuse Patient Records regulations: The Federal rules restrict any use of the information to criminally investigate or prosecute any alcohol or drug abuse patient.[facility] HospitalIn the event this information is protected by the Federal Confidentiality of Alcohol and Drug Abuse Patient Records regulations: The Federal rules restrict any use of the information to criminally investigate or prosecute any alcohol or drug abuse patient.[facility] HospitalIn the event this information is protected by the Federal Confidentiality of Alcohol and Drug Abuse Patient Records regulations: The Federal rules restrict any use of the information to criminally investigate or prosecute any alcohol or drug abuse patient.[facility] HospitalIn the event this information is protected by the Federal Confidentiality of Alcohol and Drug Abuse Patient Records regulations: The Federal rules restrict any use of the information to criminally investigate or prosecute any alcohol or drug abuse patient.[facility] HospitalIn the event this information is protected by the Federal Confidentiality of Alcohol and Drug Abuse Patient Records regulations: The Federal rules restrict any use of the information to criminally investigate or prosecute any alcohol or drug abuse patient.[facility] HospitalIn the event this information is protected by the Federal Confidentiality of Alcohol and Drug Abuse Patient Records regulations: The Federal rules restrict any use of the information to criminally investigate or prosecute any alcohol or drug abuse patient.[facility] HospitalIn the event this information is protected by the Federal Confidentiality of Alcohol and Drug Abuse Patient Records regulations: The Federal rules restrict any use of the information to criminally investigate or prosecute any alcohol or drug abuse patient.[facility] HospitalIn the event this information is protected by the Federal Confidentiality of Alcohol and Drug Abuse Patient Records regulations: The Federal rules restrict any use of the information to criminally investigate or prosecute any alcohol or drug abuse patient.[facility] HospitalIn the event this information is protected by the Federal Confidentiality of Alcohol and Drug Abuse Patient Records regulations: The Federal rules restrict any use of the information to criminally investigate or prosecute any alcohol or drug abuse patient.[facility] HospitalIn the event this information is protected by the Federal Confidentiality of Alcohol and Drug Abuse Patient Records regulations: The Federal rules restrict any use of the information to criminally investigate or prosecute any alcohol or drug abuse patient.[facility] Reason for Visit (unrecogniz ed section and content) Reason Comments F/U 3 Month Reason Comments Follow Up Reason Comments Recheck follow up Reason Comments Refill Request Reason Onset Date Comments Refill Request 09/22/2022 Reason Comments insurance update Reason Onset Date Comments Refill Request 01/30/2023 Reason Onset Date Comments Appointment 03/02/2023 Follow up Reason Comments Physical Reason Comments Arthritis Reason Comments Joint Pain Specialty Diagnoses / Procedures Referred By Contac t Referred To Contact Rheumatology Diagnoses Polyarthralgia Procedures CONSULT TO RHEUM/IMMUN DISEASE OFFICE/OUTPATIENT [facility] MDM 60-74 MINUTES Sina Vanegas MD [address] [place] [address] Referral ID Status Reason Start Date Expiration Date V isits Requested Visits Authorized [id number] Closed PCP Requested Referral 05/24/2023 05/23/2024 1 1 Reason Comments Radio Gen A21 Specialty Diagnoses / Procedures Referred By Contac t Referred To Contact XR IMAGING Diagnoses Polyarthralgia Procedures XR KNEE LIMITED 2V AP/LAT BILATERAL RADIOLOGIC EXAMINATION KNEE 1/2 VIEWS Mariajose Reynoso MD [address] [place] [address] Xr Imaging Referral ID Status Reason Start Date Expiration Date V isits Requested Visits Authorized [id number] Closed Auto-Generate d Referral 05/26/2023 06/24/2024 1 1 Reason Onset Date Comments Refill Request 08/04/2023 Reason Comments Joint Pain Reason Onset Date Comments Refill Request 01/02/2024 Reason Onset Date Comments Refill Request 02/05/2024 Reason Onset Date Comments Refill Request 04/09/2024 Reason Onset Date Comments Refill Request 04/10/2025 Care Teams (unrecognized sec tion and content) Forming Press Operator Relationship Specialty Start Date End Date Sina Vanegas MD [address] [facility] [place] [address] PCP - General Family Practice 12/06/13 Forming Press Operator Relationship Specialty Start Date End Date Sina Vanegas MD [address] [facility] [place] [address] PCP - General Family Practice 12/06/13 Forming Press Operator Relationship Specialty Start Date End Date Sina Vanegas MD [address] [facility] [place] [address] PCP - General Family Practice 12/06/13 Forming Press Operator Relationship Specialty Start Date End Date Sina Vanegas MD [address] [facility] [place] [address] PCP - General Family Practice 12/06/13 Forming Press Operator Relationship Specialty Start Date End Date Sina Vanegas MD [address] [facility] [place] [address] PCP - General Family Medicine 12/06/13 Forming Press Operator Relationship Specialty Start Date End Date Sina Vanegas MD [address] [facility] [place] [address] PCP - General Family Medicine 12/06/13 Forming Press Operator Relationship Specialty Start Date End Date Sina Vanegas MD [address] [facility] [place] [address] PCP - General Family Medicine 12/06/13 Forming Press Operator Relationship Specialty Start Date End Date Sina Vanegas MD [address] [facility] [place] [address] PCP - General Family Medicine 12/06/13 Forming Press Operator Relationship Specialty Start Date End Date Sina Vanegas MD [address] [facility] [place] [address] PCP - General Family Medicine 12/06/13 Forming Press Operator Relationship Specialty Start Date End Date Sina Vanegas MD [address] [place] [address] PCP - General Family Medicine 12/06/13 Forming Press Operator Relationship Specialty Start Date End Date Sina Vanegas MD [address] [place] [address] PCP - General Family Medicine 12/06/13 Forming Press Operator Relationship Specialty Start Date End Date Sina Vanegas MD [address] [place] [address] PCP - General Family Medicine 12/06/13 Forming Press Operator Relationship Specialty Start Date End Date Sina Vanegas MD [address] [place] [address] PCP - General Family Medicine 12/06/13 Forming Press Operator Relationship Specialty Start Date End Date Sina Vanegas MD [address] [place] [address] PCP - General Family Medicine 12/06/13 Forming Press Operator Relationship Specialty Start Date End Date Sina Vanegas MD [address] [place] [address] PCP - General Family Medicine 12/06/13 Forming Press Operator Relationship Specialty Start Date End Date Sina Vanegas MD [address] [place] [address] PCP - General Family Medicine 12/06/13 Forming Press Operator Relationship Specialty Start Date End Date Sina Vanegas MD [address] [place] [address] PCP - General Family Medicine 12/06/13 Team Status: Active Member Role Status Dates No Primary Care Physician Family Provider Active Dr. Sina Vanegas MD Primary Care Provider Active Team Status: Inactive Member Role Status Dates Dr. Sina Vanegas MD Primary Care Provider Active Armida Cesar PHOTOGRAPHER APPRENTICE, PHOTOGRAPHER APPRENTICE-C Attending Provider, Referring Provider Active Forming Press Operator Relationship Specialty Start Date End Date Sina Vanegas MD [address] [place], [place] [address] PCP - General Family Medicine 12/06/13 Forming Press Operator Relationship Specialty Start Date End Date Sina Vanegas MD [address] [place], [place] [address] PCP - General Family Medicine 12/06/13 Forming Press Operator Relationship Specialty Start Date End Date Sina Vanegas MD [address] [place] [address] PCP - General Family Medicine 12/06/13 Forming Press Operator Relationship Specialty Start Date End Date Sina Vanegas MD [address] [place], [place] [address] PCP - General Family Medicine 12/06/13 Forming Press Operator Relationship Specialty Start Date End Date Sina Vanegas MD [address] [place] [address] PCP - General Family Medicine 12/06/13 Forming Press Operator Relationship Specialty Start Date End Date Sina Vanegas MD [address] [place], [place] [id number] PCP - General Family Medicine 12/06/13 Forming Press Operator Relationship Specialty Start Date End Date Sina Vanegas MD [address] [place], [place] [address] PCP - General Family Medicine 12/06/13 Forming Press Operator Relationship Specialty Start Date End Date Sina Vanegas MD [address] [facility] [place] [address] PCP - General Family Medicine 12/06/13 Sudha Mcrae APRN.LINE MANAGER [address] [facility] [place] [address] Scenario Writer Family Medicine 10/21/24 Araceli Diaz APRN.LINE MANAGER [address] [facility] [place] [address] Scenario Writer Family Medicine 10/21/24 Forming Press Operator Relationship Specialty Start Date End Date Sina Vanegas MD [address] [place] [address] PCP - General Family Medicine 12/06/13 Sudha Mcrae APRN.LINE MANAGER [address] [place] [address] Scenario Writer Family Medicine 10/21/24 Araceli Diaz INSTRUMENT STERILIZER.LINE MANAGER [address] [place] [address] Scenario Writer Family Medicine 10/21/24 Forming Press Operator Relationship Specialty Start Date End Date Sina Vanegas MD [address] [place] [address] PCP - General Family Medicine 12/06/13 Sudha Mcrae APRN.LINE MANAGER [address] [place] [address] Scenario Writer Family Medicine 10/21/24 Araceli Diaz APRN.[facility] [address] [place] [address] [facility] 10/21/24 Team Status: Active Member Role/Relationship Status Dates Dr. Sina Vanegas MD Primary Care Provider Active Team Status: Inactive Member Role/Relationship Status Dates Dr. Sina Vanegas MD Primary Care Provider Active Start: March 05, 2025 End: March 05, 2025 Armida Cesar PHOTOGRAPHER APPRENTICE, PHOTOGRAPHER APPRENTICE-C Attending Provider Active Start: March 05, 2025 End: March 05, 2025 Armida Cesar NP, PHOTOGRAPHER APPRENTICE-C Referring Provider Active Start: March 05, 2025 End: March 05, 2025 Team Status: Inactive Member Role/Relationship Status Dates Dr. Sina Vanegas MD Primary Care Provider Active Start: July 02, 2025 End: July 02, 2025 Dr. Sina Vanegas MD Referring Provider Active Start: July 02, 2025 End: July 02, 2025 Armida Cesar NP, PHOTOGRAPHER APPRENTICE-C Attending Provider Active Start: July 02, 2025 End: July 02, 2025 Goals (unrecognized section and content) Goals may be documented in a n alternate sectionGoals may be documented in an alternate sectionGoals may be documented in an alternate sectionGoals may be documented in an alternate sectionGoals may be documented in an alternate section Inactive Administered Medications - up to 3 most recent administrations Administered Medications (un recognized section and content) Medication Order MAR Action Action Date Dose Rate Site diphenhydrAMINE 12.5-50 mg injection (BENADRYL) 12.5-50 mg, INTRAVENOUS, DIRECTED, Starting on Mon01/05/24 at 0830, Until Mon01/05/24 at 1229, DOSING DIRECTED BY PHYSICIAN FOR PROCEDURAL SEDATION ONLY, Intraprocedure Given 01/05/2024 8:19 AM EST 50 mg fentaNYL 50 mcg/mL 25-100 mcg injection (SUBLIMAZE) 25-100 mcg, INTRAVENOUS, DIRECTED, Starting on Mon01/05/24 at 0830, Until Mon01/05/24 at 1229, DOSING DIRECTED BY PHYSICIAN FOR PROCEDURAL SEDATION ONLY, Intraprocedure Given 01/05/2024 8:35 AM EST 50 mcg Given 01/05/2024 8:16 AM EST 50 mcg lactated ringers iv infusion 75 mL/hr, INTRAVENOUS, CONTINUOUS, Starting on Mon01/05/24 at 0800, Until Mon01/05/24 at 0910, Preprocedure New Bag/Syringe/Bottle 01/05/2024 8:50 AM EST 75 mL/hr 75 mL/hr New Bag/Syringe/Bottle 01/05/2024 7:43 AM EST 75 mL/hr 7 5 mL/hr Arm, Right meperidine (PF) 12.5-100 mg injection (DEMEROL) 12.5-100 mg, INTRAVENOUS, DIRECTED, Starting on Mon01/05/24 at 0900, Until Mon01/05/24 at 1259, DOSING DIRECTED BY PHYSICIAN FOR PROCEDURAL SEDATION ONLY, Intraprocedure Given 01/05/2024 8:40 AM EST 25 mg Given 01/05/2024 8:30 AM EST 25 mg midazolam (PF) 1-5 mg injection (VERSED) 1-5 mg, INTRAVENOUS, DIRECTED, Starting on Mon01/05/24 at 0830, Until Mon01/05/24 at 1229, DOSING DIRECTED BY PHYSICIAN FOR PROCEDURAL SEDATION ONLY, Intraprocedure Given 01/05/2024 8:56 AM EST 2 mg Given 01/05/2024 8:27 AM EST 2 mg Given 01/05/2024 8:22 AM EST 2 mg INFORMATION SOURCE (unrecogn ized section and content) DATE CREATED AUTHOR 03/19/2025 [facility] DATE CREATED AUTHOR AUTHOR'S ORGANIZ ATION 07/04/2025 [facility] FOR RECORDS PERTAINING TO PATIENTS WHO ARE OR HAVE BEEN ENROLLED IN A CHEMICAL DEPENDENCY/SUBSTANCEABUSE PROGRAM, SOME INFORMATION MAY BE OMITTED. This clinical summary was aggregated from multiple sources. Caution should be exercised in using it in the provision of clinical care. This summary normalizes information from multiple sources, and as a consequence, information in this document may materially change the coding, format and clinical context of patient data. In addition, data may be omitted in some cases. CLINICAL DECISIONS SHOULD BE BASED ON THE PRIMARY CLINICAL RECORDS. [employer] [facility]. provides no warranty or guarantee of the accuracy or completeness of information in this document.
== END | disposition home or self-care (01) ==
LOC: OPBI 12:19
PROVIDERS: PCP Family Medicine; Referring Provider Nurse Practitioner Women's Health; Visit Provider Nurse Practitioner Women's Health
DX: Z12.31 Encounter for screening mammogram for malignant neoplasm of breast (principal)
CPT/HCPCS: 77063; 77067